=== PATIENT | female | born 1970 | race Caucasian/White ===

== ENCOUNTER 2018-12-30 07:23 | Inpatient (IN) | payer OTHER, MEDICAID ==
[~2018-12-30] VITALS: Ht 152.4 cm; Wt 70.3 kg
[2018-12-30] VITALS (19 sets, daily range): BP systolic 74–125; BP diastolic 40–81
--- NOTE | 2018-12-30 00:05 | NUR ---
VS STABLE AT THIS TIME. SBP AT 105. HR AT 63. PT CURRENTLY ON LEVOPHED AT 3MCG/MIN. RESPIRATIONS ARE EVEN AND UNLABORED. COLOSTOMY EMPTIED AT THIS TIME. PT TURNED AND REPOSITIONED. ORAL CARE PROVIDED TO PT. WILL CONTINUE TO MONITOR. Addendum: 12/31/18 at 0007 by Aimee Freeman RN WRONG DATE. ENTRY IS FOR 12/31/18
--- NOTE | 2018-12-30 07:25 | NUR ---
DR MARYLOU ALCARAZ AT BEDSIDE FOR PATIENT EVALUATION PATIENT PRESENTING WITH DYSPNEA WITH RESPIRATORY RATE LESS THAN 8 BPM AND POSSIBLE SEPSIS PATIENT ON ConvoreSCAPE R860 VENTILATOR AT THIS TIME SETTINGS: AC 12 VT 400 PEEP 5cmH2O FIO2 30% ED/MD AWARE OF SETTINGS
[2018-12-30] MEDS ORDERED: cefTRIAXone 1,000 MG in DEXT 5% MINI-BAG PLUS 50 ML IV ONE (07:30)
[2018-12-30] MEDS ORDERED: VANCOMYCIN 1,000 MG in DEXTROSE 5% 250 ML IV ONE (07:30)
--- NOTE | 2018-12-30 07:30 | NUR ---
Note undone in EDM - 12/30/18 at 0919 by [facility] [place]. PATIENT PRESENTS WITH ALOC. UNABLE TO FOLLOW COMMANDS. PERLL SLUGGISH 4 MM. MUSCLE CONTRACTURES NOTED TO BILATERAL UPPER AND LOWER EXTREMITIES. PT PLACED ON PILE HEADER. BS 109. PATIENT HAS TRACHE. NON LABORED BREATHING. CLEAR BILATERAL LUNGS UPON AUSCULTATION. PT HAS PEG TUBE AND COLOSTOMY. HOB UP. LOW BED POSITION, LOCKED. BED SIDE RAILS UP X 2. PT ER MD AWARE OF PT STATUS. WILL CONTINUE TO MONITOR.
--- NOTE | 2018-12-30 07:30 | NUR ---
OM[place] [facility] [place]IENT PRESENTS WITH ALOC. EMS HAD TO BAG PATIENT UPON ARRIVAL.UNABLE TO FOLLOW COMMANDS. PERLL SLUGGISH 4 MM. MUSCLE CONTRACTURES NOTED TO BILATERAL UPPER AND LOWER EXTREMITIES. PT PLACED ON CARPENTER AND JOINER. BS 109. PATIENT HAS TRACHE. PT PLACED ON VENTILATOR BY RT. CLEAR BILATERAL LUNGS UPON AUSCULTATION. PT HAS PEG TUBE AND COLOSTOMY. HOB UP. LOW BED POSITION, LOCKED. BED SIDE RAILS UP X 2. PT ER MD AWARE OF PT STATUS. WILL CONTINUE TO MONITOR.
--- NOTE | 2018-12-30 07:52 | NUR ---
[facility] LABORER TO ATTEMPT ABG AT A LATER TIME LAB AT [facility] FOLLOWED BY RADIOILOGY
[2018-12-30] MEDS ORDERED: LANS15EC28 GT (08:13)
[2018-12-30] MEDS ORDERED: GABA400C GT (08:13)
[2018-12-30] MEDS ORDERED: FENT100T TD (08:13)
[2018-12-30] MEDS ORDERED: KEP500L GT (08:13)
[2018-12-30] MEDS ORDERED: SERT25TA GT (08:13)
[2018-12-30] MEDS ORDERED: TRAM50TA1 GT (08:13)
[2018-12-30] MEDS ORDERED: TOPI50TA GT (08:13)
[2018-12-30] MEDS ORDERED: ACET-2619 GT (08:13)
[2018-12-30] MEDS ORDERED: ONDA4TAB GT (08:13)
[2018-12-30] MEDS ORDERED: HYDR1LIQ6 GT (08:13)
--- NOTE | 2018-12-30 08:15 | NUR ---
# 16 FR Chu catheter with 10 ml utilizing sterile technique. Immediate return of 20 ml YELLOW urine noted. Bedside drainage bag placed below level of bladder. Urine sample collected and sent to lab. Pt tolerated procedure WELL.
[2018-12-30] MEDS ORDERED: cefTRIAXone 1,000 MG VIAL ONE (08:17)
[2018-12-30] MEDS ORDERED: BEN50 GT (08:17)
[2018-12-30] MEDS ORDERED: ASCO500T45 GT (08:17)
[2018-12-30 08:19] LABS: HEMATOCRIT 38.3 % (36-48); HEMOGLOBIN 11.8 g/dL (12.0-16.0); MEAN CORPUSCULAR HEMOGLOBIN 26 pg (27-31); MEAN CORPUSCULAR HGB CONC 31 g/dL (33-37); MEAN CORPUSCULAR VOLUME 85.6 fL (80-94); PLATELET COUNT (AUTO) 364 K/uL (140-450); RED BLOOD CELL COUNT(AUTO) 4.47 MIL/uL (4.20-5.40); RED CELL DISTRIBUTION WIDTH 19.3 % (11.6-13.7)
[2018-12-30] MEDS ORDERED: SYN.075 GT (08:25)
[2018-12-30] MEDS ORDERED: MULT-1640 GT (08:25)
[2018-12-30] MEDS ORDERED: HYDR200T5 GT (08:25)
[2018-12-30] MEDS ORDERED: METO-485 GT (08:25)
[2018-12-30] MEDS ORDERED: BACL10TA4 GT (08:25)
[2018-12-30] MEDS ORDERED: LOV40I SUBQ (08:25)
[2018-12-30] MEDS ORDERED: LORA-476 GT (08:25)
[2018-12-30] MEDS ORDERED: ZINC220C12 GT (08:25)
--- NOTE | 2018-12-30 08:29 | NUR ---
BLOOD PRESSURE DECLINING; ED MD NOTIFIED. ORDERS RECIEVED.
[2018-12-30 08:30] LABS: PROTHROMBIN TIME 11.6 secs (10.8-13.4)
[2018-12-30 08:33] LABS: EOSINOPHILS % (MANUAL) 2 % (0-4); LYMPHOCYTES % (MANUAL) 5 % (20-46); MONOCYTES % (MANUAL) 3 % (5-12)
[2018-12-30] MEDS ORDERED: NACL 0.9% 1,000 ML IV ONE ×2 (08:35→20:10)
--- NOTE | 2018-12-30 08:58 | NUR ---
ABG DONE POSS MIXED SAMPLE AND REDRAW PATIENT HYPOTENSIVE 81/38
[2018-12-30] MEDS ORDERED: VANCOMYCIN 1,000 MG VIAL ONE (09:03)
[2018-12-30] MEDS ORDERED: NOREPINEPHRINE 4 MG in DEXTROSE 5% 250 ML IV ONE (09:10)
--- NOTE | 2018-12-30 09:10 | NUR ---
DR MARYLOU ALCARAZ ED/ REVIEWED ABG MIXED SAMPLE REPORT TRIAL MGR TO REDRAW AT A LATER TIME WITH INCREASED B/P
--- NOTE | 2018-12-30 09:15 | NUR ---
PT IS AT BEDSIDE. OPENS EYES AND MOUTHS WORDS. BLOOD PRESSURE IS STABILIZING. DR ALCARAZ AT BEDSIDE. WITHHELD LEVOPHED AT THIS TIME.
[2018-12-30 09:42] LABS: ALBUMIN 3.3 g/dL (3.4-5.0); ANION GAP 19.7 (8-16); CARBON DIOXIDE 23.7 mmol/L (21-32); CREATININE 1.1 mg/dL (0.6-1.3); TOTAL BILIRUBIN 0.6 mg/dL (0.0-1.0)
[2018-12-30 09:44] LABS: POTASSIUM 6.4 mmol/L (3.5-5.1)
[2018-12-30 09:53] LABS: APPEARANCE,URINE CLOUDY (CLEAR); BILIRUBIN,URINE NEGATIVE (NEGATIVE); BLOOD, URINE 1+ (NEGATIVE); COLOR,URINE YELLOW (YELLOW); LEUKOCYTE ESTERASE ,URINE NEGATIVE (NEGATIVE); NITRITE, URINE NEGATIVE (NEGATIVE); PH,URINE 5.5 (5.0-9.0); UGLUCOSE NEGATIVE (NEGATIVE)
[2018-12-30] MEDS ORDERED: INSULIN REGULAR, HUMAN 100 UNIT/ML VIAL IVP ONE (10:00)
[2018-12-30] MEDS ORDERED: SODIUM BICARBONATE 8.4% PFS 50 MEQ/50 ML SYR IVP ONE (10:00)
[2018-12-30] MEDS ORDERED: SODIUM POLYSTYRENE 15 GM/60 ML UDBTL PO ONE (10:00)
[2018-12-30] MEDS ORDERED: DEXTROSE 50% 50 ML SYR IVP ONE (10:00)
[2018-12-30 10:06] LABS: RBC,URINE >100 /HPF (0-5); WBC,URINE >25 (MANY) /HPF (0-5)
--- NOTE | 2018-12-30 10:08 | NUR ---
ED-10 PATIENT RESTING WELL WITHOUT PULMONARY DISTRESS NOTED GOOD CHEST RISE AIRWAY PATENT
--- NOTE | 2018-12-30 10:08 | NUR ---
RESTING COMFORATBLY NO SOB NOTED GOOD CHEST RISE
[2018-12-30] MEDS ORDERED: ONDANSETRON 4 MG/2 ML VIAL IM/IVP PRN (10:15)
[2018-12-30] MEDS ORDERED: DOCUSATE SODIUM 100 MG GELCAP PO PRN (10:15)
--- NOTE | 2018-12-30 10:58 | NUR ---
TRANSFERRED TO ICU-1 REMOVED FROM VENTILATOR PLACED ON SUPPLEMENTAL OXYGEN AT 15 LPM VIA E-TANK TO AMBU BAG/TRACHEOSTOMY TUBE BAG DEPRESSION EVERY 6-8 SECONDS SATURATION 98% TOLERATED TRANSFER WITHOUT INCIDENT
--- NOTE | 2018-12-30 11:00 | NUR ---
Patient will be admitted to care of Dr Vargas. Admited to ICU. Will go to room 1. Belongings list completed. Report to JAY Joaquin.
--- NOTE | 2018-12-30 11:05 | NUR ---
PLACED BACK ON A mechatronic system[employer] R860 VENTILATOR WITH SAME SETTINGS NOTED ON FLOW SHEET
--- NOTE | 2018-12-30 11:10 | NUR ---
PATIENT TRANSFERRED FROM ED. TRACH TO VENT. ALERT TO SELF. FOLLOWS COMMANDS. PATIENT IS CONTRACTED BLE. GROSS MOTOR MOVEMENTS NOTED BLE. PATIENT ABLE TO MOVE LLE AND BUE. G-TUBE IN PLACE. COLOSTOMY TO LUQ, MODERATE BROWN STOOL NOTED. WHITMORE CATH IN PLACE TO GRAVITY IN MODERATE AMOUNT, CLEAR/NANY IN COLOR. MULTIPLE WOUNDS NOTED, SEE WOUND ASSESSMENT. PATIENT'S DAUGHTER AJ MARSH, NOTIFIED OF TRANSFER AND PLAN OF CARE. PATIENT LINENS CHANGED. OFFLOADED PRESSURE AREAS, SKIN KEPT CLEAN AND DRY.
[2018-12-30 11:20] LABS: MAGNESIUM 2.4 mg/dL (1.8-2.4); PHOSPHORUS 7.6 mg/dL (2.5-4.9); THYROID STIMULATING HORMONE 4.57 uIU/mL (0.34-3.74)
[2018-12-30] MEDS ORDERED: DEXTROSE 50% 50 ML SYR IVP PRN (11:35)
[2018-12-30] MEDS ORDERED: DEXT 5% / NACL 0.45% 1,000 ML IV ONE (11:35)
[2018-12-30] MEDS ORDERED: CALCIUM ACETATE 667 MG TAB PO SCH (12:00)
[2018-12-30] MEDS ORDERED: LACTULOSE 20 GM/30 ML UDC GT SCH (12:00)
[2018-12-30] MEDS ORDERED: diphenhydrAMINE 12.5 MG/5 ML UDC GT SCH (12:00)
[2018-12-30] MEDS ORDERED: VANCOMYCIN PER PHARMACY MC PRN (12:15)
--- NOTE | 2018-12-30 12:28 | NUR ---
REVIEWED ABG SAMPLE REPORT WITH DR PATRICK GODDARD DRAWN IN ED-10 AT 09:04 MD STATES "I'M FINE WITH RESULTS ENTER INTO Connos[employer]er WITH NOTE STATING THAT SAMPLE IS A MIXED SAMPLE"
[2018-12-30] MEDS: ACETAMINOPHEN 650 MG/20.3 ML UDC PEG PRN (12:48)
--- NOTE | 2018-12-30 13:24 | NUR ---
NO EVIDENCE OF RESPIRATORY DISTRESS NOTED GOOD CHEST RISE AIRWAY PATENT
[2018-12-30] MEDS ORDERED: LIDOCAINE 1% 500 MG/50 ML VIAL INJ SCH (13:30)
--- NOTE | 2018-12-30 13:31 | NUR ---
PATIENT HAS BEEN SCREENED AND CATEGORIZED HIGH NUTRITION RISK. PATIENT WILL BE SEEN WITHIN 1-2 DAYS OF ADMISSION. 12/30/18-12/31/[address]
[2018-12-30] MEDS ORDERED: ONDANSETRON 4 MG/5 ML ORASYR GT PRN (13:35)
[2018-12-30] MEDS ORDERED: HYDROMORPHONE HCL 2 MG GT SCH (13:35)
[2018-12-30] MEDS ORDERED: ACETAMINOPHEN EXTRA STRENGTH 500 MG TAB GT PRN (13:35)
[2018-12-30] MEDS ORDERED: HYDROXYCHLOROQUINE 200 MG TAB GT SCH (13:35)
[2018-12-30] MEDS: LORazepam 2 MG/ML VIAL IM/IVP PRN (13:39)
[2018-12-30 13:46] LABS: ANION GAP 12.3 (8-16); CARBON DIOXIDE 31.8 mmol/L (21-32); CREATININE 0.9 mg/dL (0.6-1.3); POTASSIUM 4.1 mmol/L (3.5-5.1)
[2018-12-30] MEDS ORDERED: BACLOFEN 10 MG TAB GT SCH (13:46)
[2018-12-30] MEDS ORDERED: DOCUSATE 100 MG/10 ML UDC GT PRN (13:51)
[2018-12-30] MEDS ORDERED: ENOXAPARIN 40 MG/0.4 ML SYR SUBQ SCH (13:52)
--- NOTE | 2018-12-30 13:59 | NUR ---
CENTRAL LINE CONSENT OBTAINED FROM PATIENT AND PATIENT'S DAUGHTER. SPOKE WITH PATIENT'S REGARDING CURRENT PLAN OF CARE, IN AGREEMENT. LAB CRITICAL RESULT RECEIVED BLOOD GLUCOSE 48, RECHECKED AT BEDSIDE BS 108. DR. PINEDA NOTIFIED, NO CHANGE IN ORDERS.
[2018-12-30] MEDS ORDERED: LORazepam 2 MG/ML VIAL IM/IVP SCH (14:00)
[2018-12-30] MEDS ORDERED: HYDROmorphone 1 MG/ML AMP IVP SCH (14:00)
--- NOTE | 2018-12-30 14:30 | NUR ---
DR. PINEDA UNABLE TO OBTAIN CENTRAL LINE. ORDERS RECEIVED FOR PICC LINE. PICC NURSE NOTIFIED, AWAITING CALLBACK FOR PROCEDURE TIME.
[2018-12-30] MEDS: PIPER/TAZO 3.375GM/D5W PREMIX 50 ML IV SCH ×2 (15:13→20:54)
[2018-12-30] MEDS ORDERED: NACL 0.9% 500 ML IV SCH (15:35)
[2018-12-30] MEDS: LEVOTHYROXINE 0.1 MG TAB GT SCH (16:00)
[2018-12-30] MEDS: GABAPENTIN 100 MG CAP GT SCH (16:00)
[2018-12-30] MEDS: fentaNYL 0.1 MG/HR PATCH TD SCH (16:10)
[2018-12-30] MEDS: BACLOFEN 10 MG TAB GT SCH (16:12)
[2018-12-30] MEDS: BLOOD GLUCOSE MONITORING 1 DEV DEV FS SCH ×2 (16:30→20:54)
--- NOTE | 2018-12-30 16:39 | NUR ---
PATIENT HAVING ULTRASOUND AT BEDSIDE.
[2018-12-30] MEDS ORDERED: LORazepam 2 MG/ML VIAL IM/IVP PRN (18:30)
[2018-12-30] MEDS: METOCLOPRAMIDE 10 MG/10 ML SYRP UDC GT SCH (18:39)
[2018-12-30] MEDS: diphenhydrAMINE 12.5 MG/5 ML UDC GT SCH (18:39)
--- NOTE | 2018-12-30 19:02 | NUR ---
DR. MOSHER NOTIFIED OF PATIENT'S CONDITION. MADE AWARE OF PATIENT VENTURA IN 50S, ASYMPTOMATIC, NO NEW ORDERS. CONTINUE FENTANYL PATCH. PATIENT RESTING INTERMITTENTLY. NO ACUTE DISTRESS NOTED.
--- NOTE | 2018-12-30 19:14 | NUR ---
RCV'D PT ON MECHANICAL VENTILATION. PT IS TRACHED WITH SHILEY 6. TRACH IS IN PLACE AND SECURED. NO SOB OR DISTRESS NOTED. PT IS AWAKE AND RESPONDS TO QUESTION. MD MOSHER AT BEDSIDE. VENT IS CONNECTED TO RED OUTLET.ALARMS AUDIBLE. WILL CONTINUE TO MONITOR.
--- NOTE | 2018-12-30 19:19 | NUR ---
SBAR REPORT GIVEN TO JAY VALERO AT PT BEDSIDE. PATIENT RESTING IN BED. AWAKENS TO LIGHT STIMULI. NO ACUTE DISTRESS NOTED. OFFLOADED PRESSURE AREAS.
--- NOTE | 2018-12-30 19:30 | NUR ---
RECEIVED REPORT FROM MORNING RN FOR CONTINUITY OF CARE. BP MONITORED CLOSELY DUE TO GRADUALLY DECREASING. PT ABLE TO OPEN EYES AND MOUTH WORDS. ABLE TO MAKE SIMPLE NEEDS KNOWN. AFEBRILE. PT DENIES ANY PAIN OR DISCOMFORT AT THIS TIME. LUNG SOUNDS CLEAR. TRACH TO VENT WITH SETTINGS: AC12, FIO2 30%, TV 400, AND PEEP 5. NO SOB NOTED. S1+S2 HEARD. PULSE ARE PALPABLE IN ALL EXTREMITIES. SB ON MONITOR. ABDOMEN ROUND, SOFT AND NONDISTENDED. BS ACTIVE IN ALL QUADRANTS. GTUBE IN PLACE. NO RESIDUAL ASPIRATED. COLOSTOMY IN PLACE WITH LIQUID BROWN OUTPUT. WHITMORE CATHETER IN PLACE. DRAINING CLEAR AND YELLOW URINE. PT HAS PERIPHERAL IV ACCESS ON RIGHT HAND 22G. LINE WAS FLUSHED AND WAS PATENT, INTACT, AND ASYMPTOMATIC. PT SKIN IS WARM AND DRY TO TOUCH. PT HAS UNEVEN COLOR OF SKIN TONE ON HER FACE. MULTIPLE OPEN AREAS NOTED. WILL CONTINUE TO MONITOR PT.
--- NOTE | 2018-12-30 20:12 | NUR ---
CALLED DR. MOSHER TO NOTIFY HIM REGARDING PT'S BP AT THIS TIME. RECEIVED AN ORDER FOR IVF BOLUS. PT TO BE STARTED ON LEVOPHED DRIP POST IVF BOLUS. WILL EVALUATE THE NEED FOR THE DRIP AFTER.
--- NOTE | 2018-12-30 20:13 | NUR ---
CALLED BACK DR. MOSHER TO CLARIFY IVF BOLUS ORDER D/T PT'S BNP. PER DR. MOSHER PROCEED WITH THE BOLUS.
[2018-12-30] MEDS: TOPIRAMATE 25 MG TAB GT SCH (20:54)
[2018-12-30] MEDS: levETIRAcetam 100 MG/ML ORASYR GT SCH (20:54)
--- NOTE | 2018-12-30 20:57 | NUR ---
PT'S BP SLOWLY IMPROVING. NS BOLUS STILL INFUSING AT THIS TIME.
--- NOTE | 2018-12-30 21:20 | NUR ---
PICC LINE NURSE AT BEDSIDE. TIME OUT WAS DONE. PT STILL BRADYCARDIC. HYPOTENSION STILL NOTED. WILL CONTINUE TO MONITOR PT.
--- NOTE | 2018-12-30 21:43 | NUR ---
PICC LINE WAS INSERTED BY PICC LINE NURSE. CALLED DR. MOSHER FOR A CXR ORDER. CALLED RADIOLOGY TO NOTIFY THEM REGARDING THE ORDER.
[2018-12-30] MEDS: DEXT 5% /NACL 0.9% 1,000 ML IV SCH (22:00)
--- NOTE | 2018-12-30 22:16 | NUR ---
CALLED PT'S , ASHLEY, TO NOTIFY HIM THAT PICC LINE WAS SUCCESSFULLY INSERTED AND THE PT TOLERATED WELL. UPDATED HIM REGARDING THE PT'S CONDITION. ASHLEY WAS WANTING TO KNOW IF THE PT IS GOING TO BE OKAY. INFORMED HIM THAT THIS TOPIC IS BETTER FOR HIM TO DISCUSS WITH THE PHYSICIAN IN THE MORNING. PER ASHLEY, HE WILL COME IN TO SEE PT TOMORROW.
[2018-12-30] MEDS ORDERED: NOREPINEPHRINE 4 MG/4 ML VIAL IV ONE (22:29)
[2018-12-30] MEDS: NOREPINEPHRINE 4 MG in DEXTROSE 5% 250 ML IV PRN (22:40)
--- NOTE | 2018-12-30 22:45 | NUR ---
VENT CHECK. PT IS AWAKE AND QUITE. PT JUST GOT PICC LINE INSERTED. NO SOB OR DISTRESS NOTED. WILL CONTINUE TO MONITOR.
--- NOTE | 2018-12-30 23:30 | NUR ---
CALLED DR. MOSHER FOR ANOTHER CHEST X-RAY ORDER. PER PICC LINE NURSE THE LINE HAS TO BE REPOSITIONED. X-RAY TECH IN THE UNIT AND NOTIFIED REGARDING THE NEW ORDER. Addendum: 12/31/18 at 0004 by Aimee Freeman RN WRONG TIME. THIS WAS DONE 7
[2018-12-31] VITALS (97 sets, daily range): BP systolic 84–121; BP diastolic 45–77
--- NOTE | 2018-12-31 00:05 | NUR ---
VS STABLE AT THIS TIME. SBP AT 105. HR AT 63. PT CURRENTLY ON LEVOPHED AT 3MCG/MIN. RESPIRATIONS ARE EVEN AND UNLABORED. COLOSTOMY EMPTIED AT THIS TIME. PT TURNED AND REPOSITIONED. ORAL CARE PROVIDED TO PT. WILL CONTINUE TO MONITOR.
[2018-12-31] MEDS: DEXT 5% /NACL 0.9% 1,000 ML IV SCH (00:15)
[2018-12-31] MEDS: diphenhydrAMINE 12.5 MG/5 ML UDC GT SCH ×5 (00:17→23:02)
[2018-12-31] MEDS: METOCLOPRAMIDE 10 MG/10 ML SYRP UDC GT SCH ×5 (00:18→23:02)
--- NOTE | 2018-12-31 02:25 | NUR ---
UNABLE TO COLLECT SPUTUM.PT IS DRY. CLEAR BREATH SOUNDS.
--- NOTE | 2018-12-31 03:12 | NUR ---
PM CARE PROVIDED TO PT. DRESSINGS WERE CHANGED AND WOUNDS WERE MEASURED. WHITMORE CATHETER CARE PROVIDED. HOB AT 30 DEGREES. BED AT LOW POSITION. WILL CONTINUE TO MONITOR PT AT THIS TIME.
--- NOTE | 2018-12-31 05:00 | NUR ---
NO CHANGE IN PT'S CONDITION AT THIS TIME. VS REMAINS STABLE. SR ON MONITOR. PT STILL ON LEVOPHED AT 5MCG/MIN. PICC LINE DRESSING IS CLEAN, DRY AND INTACT. ALL SAFETY PRECAUTIONS REMAINS IN PLACE. WILL CONTINUE TO MONITOR PT.
[2018-12-31] MEDS: PIPER/TAZO 3.375GM/D5W PREMIX 50 ML IV SCH ×3 (05:34→20:38)
[2018-12-31] MEDS: levETIRAcetam 100 MG/ML ORASYR GT SCH ×3 (05:35→20:38)
[2018-12-31] MEDS: BLOOD GLUCOSE MONITORING 1 DEV DEV FS SCH ×4 (06:32→20:45)
[2018-12-31] MEDS: INSULIN LISPRO SLIDING SCALE 100 UNITS/ML VIAL SUBQ PRN ×2 (06:33→12:16)
--- NOTE | 2018-12-31 06:54 | NUR ---
DR. PINEDA AT BEDSIDE AT THIS TIME. UPDATED HIM REGARDING PT'S CONDITION. WILL FOLLOW-UP WITH ANY NEW ORDERS.
--- NOTE | 2018-12-31 07:15 | NUR ---
RECIVED PT ON VENT WITH SETTINGS CHARTED BREATH SOUNDS PRESENT BILAT CLEAR SXN P WITH MIN AMT OFF WHITE SECS ANBU BAG BEDSIDE VENT PLUGGED INTO RED OUTLET WILL CONTINUE TO MONITOR PT ON VENT
[2018-12-31 07:18] LABS: CHOL/HDL RATIO 1.7 (1-4.5); MAGNESIUM 2.1 mg/dL (1.8-2.4); PHOSPHORUS 3.4 mg/dL (2.5-4.9)
[2018-12-31 07:22] LABS: BASOPHILS % (AUTO) 0.5 % (0.0-2.0); EOSINOPHILS # (AUTO) 0.6 K/uL (0-0.4); EOSINOPHILS % (AUTO) 8.8 % (0.0-4.0); HEMATOCRIT 33.7 % (36-48); HEMOGLOBIN 10.4 g/dL (12.0-16.0); LYMPHOCYTES # (AUTO) 0.4 K/uL (2.5-16.5); LYMPHOCYTES % (AUTO) 5.2 % (20.5-51.1); MEAN CORPUSCULAR HEMOGLOBIN 26 pg (27-31); MEAN CORPUSCULAR HGB CONC 31 g/dL (33-37); MEAN CORPUSCULAR VOLUME 85.8 fL (80-94); MONOCYTES # (AUTO) 0.5 K/uL (0.8-1.0); MONOCYTES % (AUTO) 6.6 % (1.7-9.3); NEUTROPHILS # (AUTO) 5.7 K/uL (1.8-7.7); NEUTROPHILS % (AUTO) 78.9 % (42.2-75.2); PLATELET COUNT (AUTO) 262 K/uL (140-450); RED BLOOD CELL COUNT(AUTO) 3.92 MIL/uL (4.20-5.40); RED CELL DISTRIBUTION WIDTH 19.9 % (11.6-13.7); WHITE BLOOD COUNT (AUTO) 7.2 K/uL (4.8-10.8)
--- NOTE | 2018-12-31 07:30 | NUR ---
RECEIVED BEDSIDE REPORT FROM CORPORATE ACCOUNTANT RN. PT IS ASLEEP, OPENS EYES TO LIGHT TOUCH. PT IS AFEBRILE. FLACC 0. NORMAL SINUS RHYTHM ON MONITOR. S1 +S2 HEARD. PT IS TRACH TO VENT W/ SETTINGS: AC 12, FIO2 30%, VT 500, PEEP 5. BILATERAL LUNGS WHEEZING. BREATHING EVEN, UNLABORED. PICC LINE TO RIGHT UPPER ARM PATENT, INTACT AND ASYMPTOMATIC. PT RECEIVING IVF D5NS AT 120 ML/HR AND LEVOPHED DRIP AT 5 MCG/MIN. PERIPHERAL IV G22 TO RIGHT HAND INTACT, PATENT, SALINE LOCKED. G-TUBE IN PLACE. ABDOMEN SOFT, ROUND, NONTENDER W/ ACTIVE BOWEL SOUNDS. COLOSTOMY BAG IN PLACE W/ BROWN LIQUID STOOL. WHITMORE CATH IN PLACE DRAINING DARK YELLOW URINE TO GRAVITY. SKIN IS DRY AND WARM TO TOUCH. MULTIPLE SKIN TEARS TO CHEST NOTED. DRESSINGS TO SACRAL AND LEFT BUTTOCK CLEAN, DRY,INTACT. HOB 30 DEGREES, BED IN LOWEST POSITION AND CALL LIGHT WITHIN REACH. WILL CONTINUE TO MONITOR.
[2018-12-31 07:31] LABS: ANION GAP 11.2 (8-16); CREATININE 0.6 mg/dL (0.6-1.3); POTASSIUM 3.2 mmol/L (3.5-5.1)
[2018-12-31 07:40] LABS: THYROID STIMULATING HORMONE 3.11 uIU/mL (0.34-3.74)
[2018-12-31 07:45] LABS: ALBUMIN 2.5 g/dL (3.4-5.0); BILIRUBIN,DIRECT 0.3 mg/dL (0.0-0.3); TOTAL BILIRUBIN 0.6 mg/dL (0.0-1.0)
--- NOTE | 2018-12-31 08:10 | NUR ---
PT SEEN BY DR. WEINER AND RESIDENT GROUP. DR. PINEDA AWARE OF LOW POTASSIUM LEVEL OF 3.2 AND LOW URINE OUTPUT. WILL FOLLOW UP ON ORDERS.
[2018-12-31] MEDS: VANCOMYCIN 1GM/DEXT 5% PREMIX 200 ML IV SCH (08:26)
[2018-12-31] MEDS: BACLOFEN 10 MG TAB GT SCH ×3 (08:27→17:29)
[2018-12-31] MEDS: SERTRALINE 50 MG TAB GT SCH (08:27)
[2018-12-31] MEDS: GABAPENTIN 100 MG CAP GT SCH ×3 (08:27→17:29)
[2018-12-31] MEDS: ZINC SULF 220 MG CAP GT SCH (08:27)
[2018-12-31] MEDS: ASCORBIC ACID 500 MG TAB GT SCH (08:28)
[2018-12-31] MEDS: TOPIRAMATE 25 MG TAB GT SCH ×2 (08:28→20:39)
[2018-12-31] MEDS: ENOXAPARIN 40 MG/0.4 ML SYR SUBQ SCH (08:29)
[2018-12-31] MEDS: LEVOTHYROXINE 0.1 MG TAB GT SCH (08:50)
[2018-12-31] MEDS ORDERED: THERAHONEY GEL 42.5 GM TP SCH (09:00)
--- NOTE | 2018-12-31 09:02 | NUR ---
MEDICATIONS ADMINISTERED ORDERED. PT TOLERATED WELL.
--- NOTE | 2018-12-31 09:15 | NUR ---
VENT CHECK COMPLETED, PT ASLEEP AT THIS TIME NOT IN ANY DISTRESS. VENT ALARMS REMAIN ON AND FUNCTIONING. WILL CONTINUE TO MONITOR.
[2018-12-31] MEDS ORDERED: POTASSIUM CHLORIDE 20% 40 MEQ/15 ML UDC GT SCH (09:30)
[2018-12-31] MEDS: NACL 0.45% 1,000 ML IV SCH ×2 (09:40→21:40)
--- NOTE | 2018-12-31 11:00 | NUR ---
EKG DONE AT BEDSIDE. FLOOR FRAMER S/SX OF DISTRESS NOTED AT THIS TIME. VSS.
--- NOTE | 2018-12-31 12:05 | NUR ---
PT SUCTIONED OBTAINED SMALL AMOUNT OF THICK SECRETIONS, AIRWAY IS PATENT AND TRACH IS SECURE. PT NOT IN ANY DISTRESS AT THIS TIME. WILL CONTINUE TO MONITOR.
[2018-12-31] MEDS: MORPHINE SULFATE 2 MG/ML SYR IVP PRN (12:25)
[2018-12-31] MEDS: NOREPINEPHRINE 4 MG in DEXTROSE 5% 250 ML IV PRN (12:42)
[2018-12-31] MEDS: LORazepam 2 MG/ML VIAL IM/IVP PRN (12:50)
[2018-12-31] MEDS ORDERED: PROBIOTIC SCREEN 1 EA MISC MC PRN (13:35)
--- NOTE | 2018-12-31 14:14 | NUR ---
12/31/18 RD INITIAL ASSESSMENT COMPLETED PLEASE REFER TO NUTRITION ASSESSMENT UNDER CARE ACTIVITY FOR ESTIMATED NUTRITIONAL NEEDS. 1. RECOMMEND GLUCERNA 1.2 AT 50 ML/HR -THIS WILL PROVIDE A VOLUME OF 1200 ML, 1440 KCAL, 72 GM OF PROTEIN. IT MEETS 100% OF PATIENT�S ENERGY NEEDS AND 99% OF PROTEIN NEEDS. 2. RECOMMEND FWF [address] TO FOLLOW-UP 2-3 DAYS, HIGH RISK [address] MANUEL AY[address] RD
--- NOTE | 2018-12-31 14:15 | NUR ---
TUBE FEEDING STARTED ORDERED. WILL CONTINUE TO MONITOR.
--- NOTE | 2018-12-31 15:45 | NUR ---
PT ASLEEP AT THIS TIME NOT IN ANY DISTRESS. WILL CONTINUE TO MONITOR.
--- NOTE | 2018-12-31 16:05 | NUR ---
VAP ORAL CARE GIVEN. REPOSITIONED FOR COMFORT AND OFF LOAD PRESSURE AREAS. TOLERATED WELL.
--- NOTE | 2018-12-31 16:22 | NUR ---
Manager Agricultural Note: Alberto AlfredoMiladis from [facility] , patient is on a 7 day bed hold and is one of their alf patients. She stated patient does not have an existing Advance Directives for health care and her daughter Shannen Faith is her health care decision maker. Addendum: 12/31/18 at 1624 by Sravani WILD Please disregard above note
--- NOTE | 2018-12-31 16:25 | NUR ---
Component Prep Operator Note: Alberto Redding from 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 She stated patient does not have an existing Advance Directives for health care and her Acosta Mccray is her health care decision maker.
--- NOTE | 2018-12-31 16:30 | NUR ---
WOUND CARE EVALUATION NOTES: REASON FOR EVALUATION: MULTIPLE PRESSURE INJURIES SKIN ASSESSMENT DONE ON THIS 48 Y[place]O FEM[place] [facility] [facility], WITH INITIAL DIAGNOSIS OF AMS. PAST MEDICAL HISTORY INCLUDE TRACH TO VENT,LUPUS,MUSCULAR DYSTROPHY,DERMATOMYOSITIS, DM, CHF, GT, LEFT COLOSTOMY, AND MULTIPLE PRESSURE INJURIES. ALL ABOVE INFORMATION WAS OBTAINED FROM THE ADMISSION H&P. SKIN WARM TO TOUCH, TOENAILS ARE SHORT AND THICKENED, R/L UPPER EXTREMITIES SHOULDERS AND ELBOWS STIFFNESS BLE NO HAIR GROWTH, BILATERAL PEDAL PULSES PRESENT AND NORMAL FEET ARE COLD TO TOUCH. INCONTINENT OF BLADDER. INCONTINENT OF BM X1 DURING SKIN ASSESSMENT. NEEDS MAX ASSISTANCE IN TURNING. PLAN OF CARE AND PRESSURE PREVENTIVE MEASURES DISCUSSED WITH PRIMARY RN. INTEGUMENTARY: -TRACH SITE SAMIR-STOMA SKIN DRY INTACT -MID ABD, GT SITE SAMIR-STOMA SKIN DRY INTACT. -LLQ ABD COLOSTOMY SAMIR-STOMA SKIN DRY INTACT, FUNCTIONING. -SACRALCOCCYX PRESSURE INJURY STAGE 4, 3X6.5X0.3 CM , WOUND BED IS CLEAN ,RED IN COLOR, 100% GRANULATING TISSUE, NO ODOR AFTER CLEANING, SMALL AMOUNT SEROSANGUINEOUS DRAINAGE, MILD ODOR. SAMIR WOUND SKIN INTACT WITH RE-EPITHELIUM TISSUE. -LEFT HIP PRESSURE INJURY STAGE 4, 3X2X0.2 CM WITH UNDERMINING AROUND THE CLOCK WITH DEEPEST TO 7 O�CLOCK 0.5 CM, WOUND BED IS CLEAN, PINK IN COLOR, 90% GRANULATING TISSUE, 10 % SCATTERED YELLOW SLOUGH, NO ODOR AFTER CLEANING, SMALL AMOUNT SEROSANGUINEOUS DRAINAGE, SAMIR WOUND SKIN INTACT WITH PERIWOUND SKIN PALE PINK IN COLOR. WOUND EDGE IS WELL DEFINED. -HEALED SCAR TO RIGHT THIGH -RIGHT / LEFT HEEL BLANCHABLE REDNESS RECOMMENDATIONS: -APPLY HYDRAGUARD TO BILATERAL CHEST, UPPER ARMS AND LOWER EXTREMITIES BID AND LEAVE IT OPEN TO AIR -CLEANSE LEFT HIP (TROCHANTER) AND SACRACOCCYX PRESSURE INJURIES WITH NS. PAT DRY, APPLY THERAHONEY GEL AND ADAPTIC DRESSING TO WOUND BED, APPLY Z-GUARD TO SACRALCOCCYX SAMIR WOUND SKIN, COVER WITH DRY DRESSING QD AND PRN IF SOILING. -TURN AND REPOSITION PATIENT Q 2H OFFLOAD LEFT AND RIGHT HIPS -ASSESS AND MONITOR SKIN CONDITION DURING POSITION CHANGE, PLEASE PAY ATTENTION TO HIPS, SACRALCOCCYX, FEET AND HEELS -OFFLOAD BILATERAL HEELS BY PLACING PILLOWS UNDER CALVES AT ALL TIMES, UNLESS OTHERWISE CONTRAINDICATED -PRESSURE REDISTRIBUTION SURFACE THERAPY -KEEP SKIN CLEAN AND DRY AT ALL TIMES. MOISTURE CONTROL WITH CONDOM CATH AND /OR RECTAL BAG WHEN APPROPRIATE RECOMMENDATIONS DISCUSSED WITH PRIMARY RN WILL FOLLOW UP PATIENT Q7-10 DAYS AND PRN. PLEASE CONTACT WOUND CARE NURSE FOR ANY QUESTIONS AND CHANGES IN SKIN CONDITION.
--- NOTE | 2018-12-31 17:21 | NUR ---
PT REMAINS ON DOCUMENTED VENT SETTINGS. PT IS ASLEEP AT THIS TIME NOT IN ANY DISTRESS. VENT ALARMS REMAIN ON AND FUNCTIONING. TRACH REMAINS SECURE WITH A PATENT AIRWAY.
--- NOTE | 2018-12-31 17:46 | NUR ---
PT IS ASLEEP AT THIS TIME. MEDICATIONS ADMINISTERED ORDERED. VITAL SIGNS STABLE. NO S/SX OF DISTRESS NOTED AT THIS TIME.
--- NOTE | 2018-12-31 18:15 | NUR ---
DR. MOSHRE IN TO SEE AND EXAMINE PT. UPDATES GIVEN ON PT'S CONDITION. WILL FOLLOW UP ON ORDERS.
--- NOTE | 2018-12-31 19:13 | NUR ---
RECEIVED REPORT FROM AM SHIFT. PT AFEBRILE. OPENS EYES SPONTANEOUSLY. ABLE TO MAKE NEEDS KNOWN. LUNG SOUNDS CLEAR BILAT. TRACH TO VENT. FIO2 30 VT 400 RATE 12 PEEP 5. SINUS RHYTHM WITH BBB NOTED. NO EDEMA NOTED. GT TO LUQ. 5 ML RESIDUAL NOTED. ON GLUCERNA 1.2 30ML WITH 150ML Q 6H. COLOSTOMY BAD NOTED. F/C IN IN PLACE. URINE CLEAR YELLOW. NO FOUL ODOR PRESENT. IV SITE RIGHT HAND 22G. DRESSING INTACT. IV SITE PATENT. RIGHT UPPER ARM PICC NOTED. DRESSING INTACT. ON LEVOPHED DRIP 5MCG AT THIS TIME. MULTIPLE SCRATCHES NOTED TO BODY. SACRAL COCCYX WOUND NOTED. DRESSING INTACT. BED IN LOWEST POSITION. SIDE RAILS UP X4. HOB 30. NO SIGNS OF ACUTE DISTRESS AT THIS TIME. WILL CONTINUE TO MONITOR.
--- NOTE | 2018-12-31 19:23 | NUR ---
REPORT GIVEN TO REHABILITATION PHYSICIAN RN FOR CONTINUITY OF CARE. PT IS IN STABLE CONDITION.
--- NOTE | 2018-12-31 19:29 | NUR ---
LAB HEMATOLOGY REPORTED GRAM POSITIVE COCCI IN CLUSTERS. DR. MOSHER MADE AWARE.
--- NOTE | 2018-12-31 20:09 | NUR ---
RECEIVED ON A LoopbackSCAPE R860 VENTILATOR PLUGGED INTO RED OUTLET TOLERATING WELL WITHOUT INCIDENT TO A SHILEY #6 DCT AIRWAY SECURED WITH A TAWANDA TRACH TIE CUFF PRESSURED CHECK NOTED AMBU BAG AT HOB LOC QUIET BREATH SOUNDS CLEAR LEFT SIDE RUL RML RALES RLL GOOD CHEST RISE EQUAL BILATERAL DEEP TRACHEAL SUCTION FOR LARGE THIN YELLOW SECRETIONS SPUTUM CULTURE SPECIMEN OBTAINED AIRWAY PATENT
--- NOTE | 2018-12-31 20:37 | NUR ---
VAP ORAL CARE PROVIDED AT THIS TIME. PT TOLERATED WELL. WILL CONTINUE TO MONITOR.
--- NOTE | 2018-12-31 21:59 | NUR ---
DR. GODWIN AT BEDSIDE AT THIS TIME. UPDATED ON PTS CURRENT CONDITION. WILL CONTINUE TO FOLLOW UP ANY ADDITIONAL ORDERS.
--- NOTE | 2018-12-31 21:59 | NUR ---
RESTING COMFORTABLY NO EVIDENCE OF PULMONARY DISTRESS NOTED GOOD CHEST RISE
--- NOTE | 2018-12-31 22:15 | NUR ---
PT REPOSITIONED AT THIS TIME. NO SIGNS OF ACUTE DISTRESS AT THIS TIME
--- NOTE | 2018-12-31 23:22 | NUR ---
NO SOB NOTED GOOD CHEST RISE AND AERATION THROUGHOUT BILATERAL LUNG DAVID AIRWAY PATENT
[2019-01-01] VITALS (61 sets, daily range): BP systolic 85–137; BP diastolic 50–82
--- NOTE | 2019-01-01 | NUR ---
NO SIGNS OF ACUTE DISTRESS AT THIS TIME. AFEBRILE.
[2019-01-01] MEDS: HYDRAGUARD CREAM TP SCH ×2 (01:13→12:21)
--- NOTE | 2019-01-01 01:41 | NUR ---
NO APPARENT DISTRESS NOTED AT THIS TIME GOOD CHEST RISE
--- NOTE | 2019-01-01 03:33 | NUR ---
RESTING WELL NO APPARENT DISTRESS NOTED GOOD CHEST RISE AIRWAY PATENT
--- NOTE | 2019-01-01 04:32 | NUR ---
AM CARE PROVIDED AT THIS TIME. ORAL CARE DONE AT THIS TIME. PT TURNED AND REPOSITIONED. WOUND CARE PROVIDED.
--- NOTE | 2019-01-01 05:13 | NUR ---
LAB AT BEDSIDE AT THIS TIME FOR AM BLOOD DRAWS. WITHDREW BLOOD VIA PICC LINE. NO SIGNS OF ACUTE DISTRESS AT THIS TIME.
[2019-01-01] MEDS ORDERED: ALBUTEROL SULFATE/IPRATROPIU 3 ML SOL IH PRN (05:15)
--- NOTE | 2019-01-01 05:23 | NUR ---
GOOD CHEST RISE DEEP TRACHEAL SUCTION FOR MODERATE THIN YELLOW SECRETIONS AIRWAY PATENT
[2019-01-01] MEDS: PIPER/TAZO 3.375GM/D5W PREMIX 50 ML IV SCH ×3 (05:31→20:13)
[2019-01-01] MEDS: diphenhydrAMINE 12.5 MG/5 ML UDC GT SCH ×4 (05:32→23:46)
[2019-01-01] MEDS: METOCLOPRAMIDE 10 MG/10 ML SYRP UDC GT SCH ×4 (05:32→23:46)
[2019-01-01] MEDS: levETIRAcetam 100 MG/ML ORASYR GT SCH ×3 (05:32→20:13)
[2019-01-01] MEDS: LORazepam 2 MG/ML VIAL IM/IVP PRN (06:30)
--- NOTE | 2019-01-01 06:30 | NUR ---
RECEIVED PT ON CARESCAPE ON DOCUMENTED SETTINGS, ALARMS ARE ON AND AUDIBLE, PTS TRACH CHAPARRITA DCT SIZE 6 IS SECURE PT IN HF QUIET NO SOB NOTED, HHN GVIEN I\L WITH 3 MG DUONEB BMV HOB, VENT PLUGGED INTO RED OUTLET I\L SX FOR SMALL YELLOW SECRETIONS
[2019-01-01] MEDS: ALBUTEROL SULFATE/IPRATROPIU 3 ML SOL IH SCH ×3 (06:32→18:39)
--- NOTE | 2019-01-01 06:33 | NUR ---
RT AT BEDSIDE AT THIS TIME
--- NOTE | 2019-01-01 06:34 | NUR ---
PT GIVEN ATIVAN AT THIS TIME FOR ANXIETY
[2019-01-01 07:04] LABS: BASOPHILS % (AUTO) 0.3 % (0.0-2.0); EOSINOPHILS # (AUTO) 0.6 K/uL (0-0.4); EOSINOPHILS % (AUTO) 7.9 % (0.0-4.0); HEMATOCRIT 33.4 % (36-48); HEMOGLOBIN 10.5 g/dL (12.0-16.0); LYMPHOCYTES # (AUTO) 0.6 K/uL (2.5-16.5); LYMPHOCYTES % (AUTO) 7.5 % (20.5-51.1); MEAN CORPUSCULAR HEMOGLOBIN 27 pg (27-31); MEAN CORPUSCULAR HGB CONC 31 g/dL (33-37); MEAN CORPUSCULAR VOLUME 85.2 fL (80-94); MONOCYTES # (AUTO) 0.5 K/uL (0.8-1.0); MONOCYTES % (AUTO) 6.9 % (1.7-9.3); NEUTROPHILS % (AUTO) 77.4 % (42.2-75.2); PLATELET COUNT (AUTO) 244 K/uL (140-450); RED BLOOD CELL COUNT(AUTO) 3.92 MIL/uL (4.20-5.40); RED CELL DISTRIBUTION WIDTH 19.5 % (11.6-13.7); WHITE BLOOD COUNT (AUTO) 7.8 K/uL (4.8-10.8)
--- NOTE | 2019-01-01 07:05 | NUR ---
RECEIVED BEDSIDE REPORT FROM SENIOR SOFTWARE TEST ENGINEER RN, DAVID, FOR CONTINUITY OF CARE. PATIENT OPENS EYES SPONTANEOUSLY, ABLE TO MAKE NEEDS KNOWN. PATIENT SKIN IS WARM AND DRY, AFEBRILE, HAS PERIPHERAL IV SITE TO R. HAND AND PICC LINE TO R. UPPER ARM, ASYMPTOMATIC AND PATENT. PATIENT SKIN IS NOT INTACT, SHE HAS PRESSURE INJURY TO SACROCOCCYX AND LEFT BUTTOCKS, DRESSING CLEAN AND DRY. PATIENT IS TRACH TO VENT, SETTINGS ARE AC 12, FIO2 30, TV 400, PEEP 5. BREATHING EVEN AND UNLABORED. SR W/BBB ON MONITOR, DENIES PAIN. PATIENT HAS GTUBE IN PLACE TO UPPER LEFT QUAD WITH GLUCERNA FEEDING RUNNING AT 30ML/HR. PATIENT HAS COLOSTOMY BAG IN PLACE TO LOWER LEFT QUAD, OUTPUT OF 75MLS. WHITMORE CATHETER IN PLACE TO CLEAR YELLOW URINE. HOB IS 30 DEGREES, SAFETY PRECAUTIONS AND ALARMS ASSESSED AND ENFORCED. NO SIGNS OF DISTRESS AT THIS TIME. WILL CONTINUE TO MONITOR.
--- NOTE | 2019-01-01 07:15 | NUR ---
ENDORSED CARE TO INCOMING SHIFT FOR CONTINUITY OF CARE
[2019-01-01 07:23] LABS: ANION GAP 13.7 (8-16); CARBON DIOXIDE 24.9 mmol/L (21-32); CREATININE 0.5 mg/dL (0.6-1.3); MAGNESIUM 1.8 mg/dL (1.8-2.4); PHOSPHORUS 2.8 mg/dL (2.5-4.9); POTASSIUM 3.6 mmol/L (3.5-5.1)
[2019-01-01 07:27] LABS: ALBUMIN 2.4 g/dL (3.4-5.0); BILIRUBIN,DIRECT 0.2 mg/dL (0.0-0.3); TOTAL BILIRUBIN 0.5 mg/dL (0.0-1.0)
[2019-01-01] MEDS: BLOOD GLUCOSE MONITORING 1 DEV DEV FS SCH ×4 (07:43→20:11)
[2019-01-01] MEDS: ZINC SULF 220 MG CAP GT SCH (08:13)
[2019-01-01] MEDS: BACLOFEN 10 MG TAB GT SCH ×3 (08:13→17:33)
[2019-01-01] MEDS: SERTRALINE 50 MG TAB GT SCH (08:13)
[2019-01-01] MEDS: LEVOTHYROXINE 0.1 MG TAB GT SCH (08:13)
[2019-01-01] MEDS: TOPIRAMATE 25 MG TAB GT SCH ×2 (08:14→20:13)
[2019-01-01] MEDS: ASCORBIC ACID 500 MG TAB GT SCH (08:14)
[2019-01-01] MEDS: GABAPENTIN 100 MG CAP GT SCH ×3 (08:14→17:33)
[2019-01-01] MEDS: ENOXAPARIN 40 MG/0.4 ML SYR SUBQ SCH (08:15)
--- NOTE | 2019-01-01 08:16 | NUR ---
PATIENT TURNED AND REPOSITIONED, TOLERATED WELL. ORAL CARE PROVIDED, NO SIGNS OF DISTRESS AT THIS TIME, WILL CONTINUE TO MONITOR
--- NOTE | 2019-01-01 09:08 | NUR ---
DR. EDGE IN TO SEE AND EXAMINE PATIENT, UPDATED ON PATIENT'S CONDITION. WILL FOLLOW UP ON ANY ORDERS.
[2019-01-01] MEDS: traMADol 50 MG TAB GT PRN (09:11)
--- NOTE | 2019-01-01 09:11 | NUR ---
PATIENT IS COMPLAINING OF DISCOMFORT, ADMINISTERED TRAMDOL PRN, TOLERATED WELL. WILL CONTINUE TO MONITOR
--- NOTE | 2019-01-01 09:16 | NUR ---
LEVOPHED IS OFF AT THIS TIME, PATIENT'S IS 99/57. WILL CONTINUE TO MONITOR
[2019-01-01] MEDS: VANCOMYCIN 1GM/DEXT 5% PREMIX 200 ML IV SCH (09:54)
[2019-01-01] MEDS: NACL 0.45% 1,000 ML IV SCH (10:10)
--- NOTE | 2019-01-01 10:10 | NUR ---
[facility] AT BEDSIDE TO ROUND ON PATIENT, UPDATED ON PATIENT'S CONDITION. WILL FOLLOW UP ON ANY ORDERS
[2019-01-01] MEDS ORDERED: PANTOPRAZOLE 40 MG INJ VIAL IVP SCH (11:07)
--- NOTE | 2019-01-01 12:18 | NUR ---
PATIENT CLEANED AND REPOSITIONED, ORAL CARE PROVIDED, PATIENT TOLERATING WELL. NO SIGNS OF DISTRESS AT THIS TIME. WILL CONTINUE TO MONITOR
[2019-01-01] MEDS: Z-GUARD PASTE TP SCH (12:20)
[2019-01-01] MEDS: THERAHONEY GEL 42.5 GM TP SCH (12:21)
--- NOTE | 2019-01-01 13:11 | NUR ---
PATIENT'S FRIEND AT BEDSIDE, UPDATED ON PATIENT'S CONDITION. NO SIGNS OF DISTRESS AT THIS TIME
--- NOTE | 2019-01-01 13:26 | NUR ---
PATIENT'S MOTHER IS HERE TO SEE PATIENT, UPDATED ON PATIENT'S CONDITION.
--- NOTE | 2019-01-01 17:11 | NUR ---
PATIENT'S MOTHER AT BEDSIDE, DR. PINEDA IN TO SPEAK WITH PATIENT'S MOTHER.
--- NOTE | 2019-01-01 18:21 | NUR ---
DR. DOTY IN TO SEE AND EXAMINE PATIENT, UPDATED ON PATIENT'S CONDITION
--- NOTE | 2019-01-01 18:45 | NUR ---
Received pt stable on vent support at documented settings, suctioned small amounts of thick yellow secretions, hhn tx given, tolerated well, no resp distress or SOB noted at this time, Shiley 6 trach secured/patent/midline, alarms set and audible, ambu bag at bedside, vent plugged into red outlet, cont pulse ox on, will cont to monitor.
--- NOTE | 2019-01-01 19:08 | NUR ---
ENDORSED CONTINUITY OF CARE TO BUILDING PERFORMANCE CONSULTANT RNHARRIET. NO SIGNS OF DISTRESS NOTED.
--- NOTE | 2019-01-01 19:10 | NUR ---
RECEIVED BEDSIDE REPORT FROM MORNING SHIFT RNCLAUDETTE. PT OPENS EYES SPONTANEOUSLY, PEERL, AFEBRIL TEMP 97.4, BP 101/56, HR=76, RR=14. SR W/BBB ON DISTRICT PLANT SUPERINTENDENT.SATING 100%, ON TRACH TO VENT, LUNG SOUND CLEAR ON UPPER/LOWER BILATERAL LOBES. FI02=30%, GX=325, RR=12, FLOW=35L/MIN. BOWEL SOUND ACTIVE X4, COLOSTOMY BAG IN PLACE, BROWN MUSHY STOOL NOTED. GLUCERNA 1.2 GEENA TO GTUBE AT 50CC/HR. RESIDUAL 50CC. RIGHT HAND PIV INTACT, FEROZ PICC LINE INFUSING 1/2NS AT 5ML/HR, TKO. SKIN IS NONINTACT, WITH SACRAL COCCYX PRESSURE ULCER. STANDARD, FALL, AND ASPIRATION PRECAUTIONS MAINTAINED. ON THERAPEUTIC MATTRESS. Addendum: 01/01/19 at 2046 by Kellie Soto RN PT MOTHER AT BEDSIDE.
[2019-01-01] MEDS: VANCOMYCIN 750 MG in DEXTROSE 5% 250 ML IV SCH (20:13)
[2019-01-01] MEDS ORDERED: VANCOMYCIN 1GM/DEXT 5% PREMIX 200 ML IV SCH (21:00)
--- NOTE | 2019-01-01 22:05 | NUR ---
PT REPOSITIONED, URINE IS CLEAR/YELLOW, LOOSE DARK BROWN STOOL IN COLOSTOMY. PT EASY TO AROUSE, OPENS EYES SPONTANEOUSLY. SUCTION X1.
[2019-01-02] VITALS (20 sets, daily range): BP systolic 85–117; BP diastolic 45–62
--- NOTE | 2019-01-02 00:30 | NUR ---
VAP ORAL CARE PROVIDED. NO SUCTIONING PROVIDED. TEMP 98.0, VSS.
[2019-01-02] MEDS: HYDRAGUARD CREAM TP SCH ×2 (01:41→13:09)
[2019-01-02] MEDS: MORPHINE SULFATE 2 MG/ML SYR IVP PRN (02:55)
--- NOTE | 2019-01-02 03:04 | NUR ---
RT NGUYỄN AT BEDSIDE TO SEE PATIENT, MORPHINE GIVEN, FLACC 7.
--- NOTE | 2019-01-02 03:45 | NUR ---
DR. DOTY IN THE UNIT. UPDATED HIM REGARDING PT'S CONDITION. FOLLOWED UP REGARDING CULTURES IF WOUND CX CAN BE ADDED. PER DR. DOTY, WILL FOLLOW-UP WITH THE DAY TEAM.
--- NOTE | 2019-01-02 04:25 | NUR ---
AM, VAP, AND WHITMORE CATH CARE PROVIDED. PT ABLE TO MOUTH WORDS/ANSWER SIMPLE COMMANDS. REPOSITIONED, SUCTIONED X1, YELLOW-WHITE MINIMAL SECRETIO NOTED. TOLERATED WELL.
[2019-01-02] MEDS: LORazepam 2 MG/ML VIAL IM/IVP PRN (04:52)
--- NOTE | 2019-01-02 04:54 | NUR ---
PT RESTLESS AT THIS TIME, MOUTHING TO "TAKE THIS OFF" X3. WHEN ASKED IF SHE WAS REFERRING TO THE TRACH SHE SAID YES, I INFORMED THE PATIENT THAT THE TRACH CANNOT BE REMOVED IT IS NEEDED TO HELP HER BREATH. ATIVAN IVP GIVEN AT THIS TIME.
[2019-01-02] MEDS: diphenhydrAMINE 12.5 MG/5 ML UDC GT SCH ×3 (05:04→17:02)
[2019-01-02] MEDS: levETIRAcetam 100 MG/ML ORASYR GT SCH ×3 (05:04→20:24)
[2019-01-02] MEDS: METOCLOPRAMIDE 10 MG/10 ML SYRP UDC GT SCH ×3 (05:04→17:04)
[2019-01-02] MEDS: PIPER/TAZO 3.375GM/D5W PREMIX 50 ML IV SCH ×3 (05:04→20:24)
[2019-01-02] MEDS: ALBUTEROL SULFATE/IPRATROPIU 3 ML SOL IH SCH ×3 (06:24→19:01)
--- NOTE | 2019-01-02 06:24 | NUR ---
RECEIVED PT ON CARESCAPE ON DOCUMENTED SETTINGS, ALARMS ARE ON AND AUDIBLE, PTS TRACH CHAPARRITA DCT SIZE 6 IS SECURE, BS CLEAR PT IN HF ASLEEP, HHN GIVEN I\L WITH 3 MG DUONEB BMV HOB VENT PLUGGED INTO RED OUTLET
[2019-01-02] MEDS ORDERED: LACTULOSE 20 GM/30 ML UDC GT ONE (06:25)
--- NOTE | 2019-01-02 06:30 | NUR ---
CALLED ICU FOR UPDATE ON PATIENT STATUS. STATED HE WILL BE COMING TO VISIT THIS MORNING.
--- NOTE | 2019-01-02 07:08 | NUR ---
RECEIVED BEDSIDE REPORT FROM NEURO UROLOGIST RN, HARRIET, FOR CONTINUITY OF CARE. PATIENT IS AAOX3, ABLE TO MAKE SOME NEEDS KNOWN. PATIENT SKIN IS WARM AND DRY, AFEBRILE, NOT INTACT, SHE HAS PRESSURE INJURY TO SACROCOCCYX AND LEFT BUTTOCKS, DRESSING CLEAN AND DRY. PATIENT IS TRACH TO VENT, SETTINGS ARE AC 12, FIO2 30%, TV 400, PEEP 5, BREATHING EVEN AND UNLABORED. PATIENT IS SR WITH BBB ON MONITOR. DENIES PAIN AT THIS TIME. PATIENT HAS GTUBE TO LEFT UPPER QUAD TO TUBE FEEDING, NO RESIDUAL NOTED. WHITMORE CATHETER IN PLACE TO CLEAR YELLOW URINE. PATIENT HAS COLOSTOMY BAG TO LEFT LOWER QUAD. SAFETY PRECAUTIONS ASSESS AND ENFORCED. HOB IS 30 DEGREES. NO SIGNS OF DISTRESS AT THIS TIME. WILL CONTINUE TO MONITOR
[2019-01-02 07:12] LABS: BASOPHILS % (AUTO) 0.3 % (0.0-2.0); EOSINOPHILS # (AUTO) 0.6 K/uL (0-0.4); EOSINOPHILS % (AUTO) 10.5 % (0.0-4.0); HEMATOCRIT 28.6 % (36-48); HEMOGLOBIN 8.9 g/dL (12.0-16.0); LYMPHOCYTES # (AUTO) 0.5 K/uL (2.5-16.5); LYMPHOCYTES % (AUTO) 9.5 % (20.5-51.1); MEAN CORPUSCULAR HEMOGLOBIN 27 pg (27-31); MEAN CORPUSCULAR HGB CONC 31 g/dL (33-37); MEAN CORPUSCULAR VOLUME 85.5 fL (80-94); MONOCYTES # (AUTO) 0.4 K/uL (0.8-1.0); MONOCYTES % (AUTO) 7.8 % (1.7-9.3); NEUTROPHILS % (AUTO) 71.9 % (42.2-75.2); PLATELET COUNT (AUTO) 203 K/uL (140-450); RED BLOOD CELL COUNT(AUTO) 3.35 MIL/uL (4.20-5.40); RED CELL DISTRIBUTION WIDTH 19.3 % (11.6-13.7); WHITE BLOOD COUNT (AUTO) 5.5 K/uL (4.8-10.8)
[2019-01-02 07:42] LABS: PHOSPHORUS 3.6 mg/dL (2.5-4.9)
[2019-01-02] MEDS: BLOOD GLUCOSE MONITORING 1 DEV DEV FS SCH ×4 (07:45→20:23)
[2019-01-02 07:46] LABS: ANION GAP 10.5 (8-16); CARBON DIOXIDE 26.3 mmol/L (21-32); CREATININE 0.5 mg/dL (0.6-1.3); POTASSIUM 3.8 mmol/L (3.5-5.1)
[2019-01-02] MEDS: PANTOPRAZOLE 40 MG INJ VIAL IVP SCH (08:09)
[2019-01-02] MEDS: TOPIRAMATE 25 MG TAB GT SCH ×2 (08:09→20:56)
[2019-01-02] MEDS: GABAPENTIN 100 MG CAP GT SCH ×3 (08:09→16:50)
[2019-01-02] MEDS: ASCORBIC ACID 500 MG TAB GT SCH (08:09)
[2019-01-02] MEDS: SERTRALINE 50 MG TAB GT SCH (08:10)
[2019-01-02] MEDS: LEVOTHYROXINE 0.1 MG TAB GT SCH (08:10)
[2019-01-02] MEDS: BACLOFEN 10 MG TAB GT SCH ×3 (08:10→16:49)
[2019-01-02] MEDS: ZINC SULF 220 MG CAP GT SCH (08:11)
[2019-01-02] MEDS: ENOXAPARIN 40 MG/0.4 ML SYR SUBQ SCH (08:12)
--- NOTE | 2019-01-02 08:37 | NUR ---
PATIENT'S MOTHER IS AT BEDSIDE.
[2019-01-02] MEDS: traMADol 50 MG TAB GT PRN (08:52)
[2019-01-02] MEDS: VANCOMYCIN 750 MG in DEXTROSE 5% 250 ML IV SCH ×2 (09:09→20:56)
--- NOTE | 2019-01-02 09:16 | NUR ---
PATIENT'S IS AT BEDSIDE
--- NOTE | 2019-01-02 09:37 | NUR ---
DR. PINEDA AND DR. WISEMAN AT BEDSIDE TO ROUND ON PATIENT, SPOKE WITH PATIENT'S REGARDING POC.
--- NOTE | 2019-01-02 11:18 | NUR ---
PATIENT CLEANED AND REPOSITIONED FOR COMFORT. CHANGED PATIENT'S COLOSTOMY BAG, 200ML OUTPUT NOTED. PATIENT TOLERATED WELL. WILL CONTINUE TO MONITOR
--- NOTE | 2019-01-02 12:41 | NUR ---
PATIENT REFUSED ORAL CARE AT THIS TIME, EDUCATED ON RISKS OF GETTING VENTILATOR ASSOCIATED PNA, PATIENT STATES SHE DOES NOT ORAL CARE AT THIS TIME.
[2019-01-02] MEDS: THERAHONEY GEL 42.5 GM TP SCH (13:08)
[2019-01-02] MEDS: Z-GUARD PASTE TP SCH (13:09)
[2019-01-02] MEDS: fentaNYL 0.1 MG/HR PATCH TD SCH (13:10)
--- NOTE | 2019-01-02 15:55 | NUR ---
ORAL CARE PROVIDED, HYDRAGAURD APPLIED TO FACE AND EXTREMITIES. PATIENT TOLERATED WELL. NO SIGNS OF DISTRESS AT THIS TIME. WILL CONTINUE TO MONITOR
--- NOTE | 2019-01-02 18:16 | NUR ---
PATIENT CLEAN AND REPOSITIONED, TOLERATED WELL.
--- NOTE | 2019-01-02 19:08 | NUR ---
Received pt stable on vent support at documented settings, suctioned small amount of thin white secretions, hhn tx given, tolerated well, no resp distress or SOB noted at this time, Shiley 6 trach secured/patent/midline, alarms set and audible, ambu bag at bedside, vent plugged into red outlet, cont pulse ox on, will cont to monitor.
--- NOTE | 2019-01-02 19:15 | NUR ---
ENDORSED CONTINUITY OF CARE TO CAR RENTAL AGENCY MANAGER RNHARRIET, NO SIGNS OF DISTRESS AT THIS TIME
--- NOTE | 2019-01-02 19:34 | NUR ---
RECEIVED BEDSIDE REPORT FROM MORNING SHIFT RNCLAUDETTE. PT SLEEPING, DOES NOT RESPOND TO VOICE/TOUCH AT THIS TIME. TEMP 97.7, BP 99/47, HR=57, SATING 100, RR=12. LUNG SOUNDS CLEAR/UPPER LOWER BILATERAL LOBES. TRACH TO VENT AC/VC RR=12, FIO2=28, UL=507, FLOW 35 L/MIN. PEEP=5. SB W/ BBB ON TECHNICAL BUSINESS ANALYST. BOWEL SOUNDS HYPOACTIVE, GTUBE IN PLACE, GLUCERNA 1.2 AT 50CC/HR, RESIDUAL 110CC, FEEDINGS CONTINUED AT THIS TIME. FEROZ PICC LINE INFUSING 1/2NS AT 5CC/HR, TO KEEP OPEN.RIGHT HAND 22 GAUGE PIV INTACT, SALINE FLUSHED. WHITMORE CATH IN PLACE, URINE CLEAR/YELLOW. PT ON THERAPEUTIC MATTRESS. SKIN IS NON=INTACT SACRALCOCCYX PRESSURE AND LEFT BUTTOCKS PRESSURE ULCER NOTED, DRESSING IS DRY/INTACT. HOB ELEVATED, STANDARD, FALL RISK PRECAUTIONS MAINTAINED.
--- NOTE | 2019-01-02 23:43 | NUR ---
PT REMAINS DROWSY AT THIS TIME, OPENS EYES TO LIGHT PHYSICAL STIMULATION. VAP ORAL CARE PROVIDED.
[2019-01-03] VITALS (17 sets, daily range): BP systolic 84–109; BP diastolic 45–67
--- NOTE | 2019-01-03 00:07 | NUR ---
TEMP 97.7, VAP ORAL CARE PROVIDED, PT TOLERATED WELL. OPENS EYES SPONTANEOUSLY BUT DOES NOT RESPOND TO COMMANDS, HOB ABOVE 30 DEG.
--- NOTE | 2019-01-03 00:31 | NUR ---
CALLED VICKI EASLEY TO HOLD BENADRYL AT THIS TIME DUE TO PT DROWSINESS. WILL CARRY OUT.
[2019-01-03] MEDS: METOCLOPRAMIDE 10 MG/10 ML SYRP UDC GT SCH ×4 (00:35→17:04)
[2019-01-03] MEDS: HYDRAGUARD CREAM TP SCH ×2 (00:35→12:34)
--- NOTE | 2019-01-03 03:10 | NUR ---
AM CARES PROVIDED, PT MORE ALERT AT THIS TIME, RESPONDS TO VOICE, OPENS EYES SPONTANEOUSLY. TOLERATED REPOSITIONING AND MORNING CARES. HOB AND LEGS ELEVATED WITH PILLOWS. VAP ORAL CARE SUCTIONING X2.
[2019-01-03] MEDS: LORazepam 2 MG/ML VIAL IM/IVP PRN (03:17)
[2019-01-03] MEDS: levETIRAcetam 100 MG/ML ORASYR GT SCH ×3 (05:00→20:54)
[2019-01-03] MEDS: PIPER/TAZO 3.375GM/D5W PREMIX 50 ML IV SCH ×3 (05:00→20:53)
--- NOTE | 2019-01-03 05:19 | NUR ---
URINE OUTPUT 250ML/ FROM WHITMORE CATHETER, ONE EPISODE URINE OUTPUT UNMEASURED ON PAD. WHITMORE CATH CARE PROVIDED. COLOSTOMY BAG, LOOSE WATERLY LIKE STOOL 50ML, BROWN IN COLOR. PT IS SLEEPING, FLACC 0.
[2019-01-03] MEDS: diphenhydrAMINE 12.5 MG/5 ML UDC GT SCH ×4 (05:45→17:04)
--- NOTE | 2019-01-03 05:58 | NUR ---
HELD BENADRYL AT THIS TIME DUE TO PT DROWSINESS AROUSES TO LIGHT SHAKING, HR 56-58.
[2019-01-03] MEDS: ALBUTEROL SULFATE/IPRATROPIU 3 ML SOL IH SCH ×3 (06:24→18:43)
--- NOTE | 2019-01-03 06:24 | NUR ---
RECEIVED PT ON CARESCAPE ON DOCUMENTED SETTINGS, ALARMS ARE ON AND AUDIBLE, PTS TRACH CHAPARRITA DCT SIZE 6 IS SECURE, PT IN HF ASLEEP BS CLEAR HHN GIVEN I\L WITH 3 MG DUONEB NO APPARENT SOB, BMV HOB, VENT PLUGGED INTO RED OUTLET
[2019-01-03 06:55] LABS: CREATININE 0.6 mg/dL (0.6-1.3)
[2019-01-03 06:58] LABS: PHOSPHORUS 5.2 mg/dL (2.5-4.9)
[2019-01-03 07:02] LABS: BASOPHILS % (AUTO) 0.3 % (0.0-2.0); EOSINOPHILS # (AUTO) 0.6 K/uL (0-0.4); EOSINOPHILS % (AUTO) 11.2 % (0.0-4.0); HEMATOCRIT 28.4 % (36-48); HEMOGLOBIN 8.8 g/dL (12.0-16.0); LYMPHOCYTES # (AUTO) 0.6 K/uL (2.5-16.5); LYMPHOCYTES % (AUTO) 9.7 % (20.5-51.1); MEAN CORPUSCULAR HEMOGLOBIN 27 pg (27-31); MEAN CORPUSCULAR HGB CONC 31 g/dL (33-37); MEAN CORPUSCULAR VOLUME 86.3 fL (80-94); MONOCYTES # (AUTO) 0.5 K/uL (0.8-1.0); MONOCYTES % (AUTO) 8.9 % (1.7-9.3); NEUTROPHILS % (AUTO) 69.9 % (42.2-75.2); PLATELET COUNT (AUTO) 215 K/uL (140-450); RED BLOOD CELL COUNT(AUTO) 3.29 MIL/uL (4.20-5.40); RED CELL DISTRIBUTION WIDTH 19.5 % (11.6-13.7); WHITE BLOOD COUNT (AUTO) 5.8 K/uL (4.8-10.8)
[2019-01-03] MEDS: BLOOD GLUCOSE MONITORING 1 DEV DEV FS SCH ×4 (07:26→20:53)
--- NOTE | 2019-01-03 07:30 | NUR ---
RECEIVED REPORT FROM NAIL WELTER NURSE AT BEDSIDE, PT OPEN EYES ONLY, UNABLE TO FOLLOW COMMANDS AT THIS TIME, VSS, FLACC 0, TRACH TO VENT SETTING WITH FIO2 24, TV 400, R 12, PEEP 5, O2 SAT 100%, RHONCHI LUNG SOUND SINDY. SR WITH BBB ON BUTTON RIVETER, SOFT ABDOMEN WITH ACTIVE BOWEL SOUNDS, GT IN PLACE FEEDING WITH GLUCERNA AT 50ML/HR, NO RESIDUALS AT THIS TIME, COLOSTOMY BAG IN PLACE WITH BROWN FECES NOTED, F/C IN PLACE WITH CLEAR YELLOW URINE VIA GRAVITY, CONTRACTURES TO ALL EXTREMITIES NOTED. SKIN IS WARM AND DRY TO TOUCH, OPEN WOUND PRESENT( SEE WOUND ASSESSMENT) PICC LINE TO RIGHT UPPER ARM, FLUSHED WITH GOOD BLOOD RETURN, KVO, IV SITE TO RIGHT HAND, 22GA, SL. HOB ELEVATED TO 30 DEGREES, SAFETY MEASURES IN PLACE, WILL CONTINUE TO MONITOR.
--- NOTE | 2019-01-03 08:00 | NUR ---
ORAL CARE PROVIDED, POSITION CHANGED FOR OFF LOAD PRESSURE.
--- NOTE | 2019-01-03 09:00 | NUR ---
SCHEDULED MEDICATION GIVEN VIA GT, PT TOLERATED WELL.
[2019-01-03] MEDS: PANTOPRAZOLE 40 MG INJ VIAL IVP SCH (09:04)
[2019-01-03] MEDS: SERTRALINE 50 MG TAB GT SCH (09:04)
[2019-01-03] MEDS: TOPIRAMATE 25 MG TAB GT SCH ×2 (09:05→20:54)
[2019-01-03] MEDS: GABAPENTIN 100 MG CAP GT SCH ×3 (09:05→17:04)
[2019-01-03] MEDS: BACLOFEN 10 MG TAB GT SCH ×3 (09:05→17:04)
[2019-01-03] MEDS: VANCOMYCIN 750 MG in DEXTROSE 5% 250 ML IV SCH (09:05)
[2019-01-03] MEDS: ZINC SULF 220 MG CAP GT SCH (09:08)
[2019-01-03] MEDS: ASCORBIC ACID 500 MG TAB GT SCH (09:08)
[2019-01-03] MEDS: LEVOTHYROXINE 0.1 MG TAB GT SCH (09:09)
[2019-01-03] MEDS: ENOXAPARIN 40 MG/0.4 ML SYR SUBQ SCH (09:09)
--- NOTE | 2019-01-03 10:00 | NUR ---
NO CHANGE OF CONDITION AT THIS TIME, POSITION CHANGED FOR OFF LOAD PRESSURE, PT'S FATHER AT BEDSIDE.
--- NOTE | 2019-01-03 12:00 | NUR ---
PT IS AAOX3, ABLE TO FOLLOW COMMANDS AND MAKE NEEDS KNOWN, DENIES PAIN, VSS, POSITION CHANGED FOR OFF LOAD PRESSURE.
[2019-01-03] MEDS: Z-GUARD PASTE TP SCH (12:33)
[2019-01-03] MEDS: THERAHONEY GEL 42.5 GM TP SCH (12:35)
[2019-01-03] MEDS ORDERED: VANCOMYCIN PER PHARMACY MC PRN (13:10)
--- NOTE | 2019-01-03 13:15 | NUR ---
WOUND CARE PROVIDED, PT TOLERATED WELL. PT'S DAUGHTER CAME IN TO SEE PT AT BEDSIDE, QUESTIONS ANSWERED WITH SALIVATION.
--- NOTE | 2019-01-03 15:02 | NUR ---
01/03/19 RD FOLLOW UP COMPLETED PLEASE REFER TO NUTRITION ASSESSMENT UNDER CARE ACTIVITY FOR ESTIMATED NUTRITIONAL NEEDS. 1. CONTINUE GLUCERNA 1.2 AT 50 ML/HR -THIS WILL PROVIDE A VOLUME OF 1200 ML, 1440 KCAL, 72 GM OF PROTEIN. IT MEETS 100% OF PATIENT�S ENERGY NEEDS AND 99% OF PROTEIN NEEDS. 2. CONTINUE FWF [address] TO FOLLOW-UP 2-3 DAYS, HIGH RISK VICTOR MANUEL AYALA RD
--- NOTE | 2019-01-03 16:00 | NUR ---
PT IS RESTING IN BED, NO S/S OF DISTRESS, VSS, FLACC 0, PM CARE AND F/C CARE PROVIDED, ORAL CARE PROVIDED, POSITION CHANGED FOR OFF LOAD PRESSURE.
--- NOTE | 2019-01-03 17:00 | NUR ---
CALLED PT'S DAUGHTER PURA AND NOTIFIED OF PT'S TRANSFER TO TELEMETRY RM 108 B THIS EVENING.
[2019-01-03] MEDS: MORPHINE SULFATE 2 MG/ML SYR IVP PRN (17:05)
--- NOTE | 2019-01-03 17:05 | NUR ---
PT RESTLESSNESS, ASK FOR PAIN MEDICATION, FLACC 8, MORPHINE, MEDICATION EDUCATION GIVEN.
--- NOTE | 2019-01-03 17:15 | NUR ---
PT'S ASHLEY NOTIFIED OF PT'S TRANSFER TO TELEMETRY TONIGHT. ASKED PT'S RE: ISOLATION HISTORY OF THE PT. STATES SHE'S BEEN ON ISOLATION PRECAUTIONS AT [facility] IN [place] AT ONE TIME BUT DOES NOT RECALL FOR WHAT.
--- NOTE | 2019-01-03 18:00 | NUR ---
PT IS ASLEEP AFTER MORPHINE GIVEN, BP 89/51, NO S/S OF DISTRESS, DR. VALLEJO MADE AWARE. Addendum: 01/03/19 at 1830 by Mariel Phelps RN NO DR. VALLEJO, IT IS DR. BROWN
[2019-01-03] MEDS ORDERED: MORPHINE SULFATE 2 MG/ML SYR IVP PRN (18:35)
--- NOTE | 2019-01-03 19:12 | NUR ---
REPORT GIVEN TO LOG LOADER NURSE FOR CONTINUE OF CARE, PT IS IN STABLE CONDITION AT THIS TIME.
--- NOTE | 2019-01-03 19:15 | NUR ---
RECEIVED BEDSIDE REPORT FROM MORNING NURSE, PATIENT OPENS HER EYES TO LIGHT TOUCH, NON VERBAL. TRACT TO VENT WITH VENT SETTING A/C FIO2 24%, VT 400, RATE 12, PEEP 5. TOLERATED WELL WITH VENT SETTING. NO ACUTE RESPIRATORY DISTRESS NOTED. BILATERAL LUNGS SOUND RHONCHI NOTED. SR WITH BBB ON THE MONITOR. G TUBE TO FEEDING, GLUCERNA 1.2 50ML/HR WITH H2O 150ML Q6, CHECKED RESIDUAL 10CC NOTED. COLOSTOMY BAG TO LEFT LOWER QUAD WITH BROWN LIQUID BOWEL NOTED. ACTIVE BOWEL SOUND FROM ALL [address] WITH CLEAR YELLOW URINE NOTED. PRESSURE ULCERS TO LEFT HIP AND SACRAL AREA. CONTRACTURE NOTED TO ALL EX'S. HOB ELEVATED OVER 30 DEGREE, BED IN LOW POSITION. CALL LIGHT WITHIN REACH. WILL CONTINUE TO MONITOR.
--- NOTE | 2019-01-03 20:55 | NUR ---
ADMINISTERED SCHEDULED MEDICATIONS ORDERED. TOLERATED WELL WITH VENT AND TUBE FEEDING. NO ACUTE DISTRESS NOTED. FLACC 0. WILL CONTINUE TO MONITOR. Addendum: 01/03/19 at 2252 by Kiki Ying RN BS CHECKED 81 NOTED.
--- NOTE | 2019-01-03 21:26 | NUR ---
DR. HAYS AT BEDSIDE TO SEE PT. WILL FOLLOW-UP WITH ANY NEW ORDERS.
--- NOTE | 2019-01-03 23:05 | NUR ---
PATIENT TRANSFERRED FROM ICU, BEDSIDE REPORT RECEIVED FROM JAY EDGE, PATIENT TRACH TO VENT, FIO2 24, VT 400, PEEP 5, O2SAT 100% RR 18 BP 97/53 HR 60-58, SR ON TELE, LUNG SOUNDS DIMINISHED IN LOWER LOBES. AAOX0, OPENS EYES TO PAIN. RIGHT UPPER ARM PICC, DOUBLE LUMEN INFUSING NS AT 5 ML/HR, RIGHT HAND IV, 22G, SL. LEFT LOWER QUAD G TUBE IN PLACE INFUSING GLUCERNA 1.2 AT 50 ML/HR WITH H20 FLUSH Q6H WITH 150 ML, 5 ML RESIDUALS NOTED. LEFT COLOSTOMY BAG IN PLACE, LIGHT BROWN STOOL NOTED. WHITMORE CATH IN PLACE, DRAINING YELLOW URINE 800 ML. ON WOUND BED, PRESSURE ULCER NOTED, DRESSING CHANGED ON 01/03/19 ACCORDING TO JAY EDGE. FALL AND SEIZURE PRECAUTIONS IN PLACE, WILL CONTINUE TO MONITOR.
--- NOTE | 2019-01-03 23:20 | NUR ---
PATIENT TRANSFERRED TO TELE 108B. NO ACUTE DISTRESS NOTED. FLACC 0.
--- NOTE | 2019-01-03 23:25 | NUR ---
2315 TRANSFERED PT TO ROOM 108. PT BEING BAGGED AND PLACED ON VENT WITH SAME SETTINGS. NO SOB NOTED
[2019-01-04] VITALS: BP 98/59
[2019-01-04] MEDS: diphenhydrAMINE 12.5 MG/5 ML UDC GT SCH ×4 (00:13→17:32)
[2019-01-04] MEDS: HYDRAGUARD CREAM TP SCH ×2 (00:13→12:23)
[2019-01-04] MEDS: METOCLOPRAMIDE 10 MG/10 ML SYRP UDC GT SCH ×4 (00:13→17:32)
--- NOTE | 2019-01-04 00:13 | NUR ---
DUE MEDICATIONS GIVEN, BP 98/57 HR 58, FLACC-0.
--- NOTE | 2019-01-04 02:37 | NUR ---
FAXED AUTHORIZATION FOR HEALTH INFORMATION TO [facility]. CALLED TO RECEIVE VERBAL CONSENT TO REQUESTED INFORMATION FROM [facility] IN [place], NO ANSWER, WILL ENDORSE TO DAY SHIFT.
[2019-01-04 04:00] VITALS: BP 99/56
--- NOTE | 2019-01-04 04:14 | NUR ---
V/S TAKEN BP 99/56 HR 68 FLACC-0
[2019-01-04] MEDS: PIPER/TAZO 3.375GM/D5W PREMIX 50 ML IV SCH ×3 (05:44→21:16)
[2019-01-04] MEDS: levETIRAcetam 100 MG/ML ORASYR GT SCH ×3 (05:44→21:17)
[2019-01-04] MEDS: BLOOD GLUCOSE MONITORING 1 DEV DEV FS SCH ×4 (05:45→21:28)
--- NOTE | 2019-01-04 05:53 | NUR ---
DUE MEDICATIONS GIVEN, BG 108
--- NOTE | 2019-01-04 06:19 | NUR ---
CALL BACK FROM PURA THE DAUGHTER, PURA REFUSED TO GIVE CONSENT TO OBTAIN RECORDS FROM [facility], DAUGHTER WANTS TO OBTAIN RECORDS FROM [facility].
[2019-01-04] MEDS: ALBUTEROL SULFATE/IPRATROPIU 3 ML SOL IH SCH ×3 (06:31→19:26)
--- NOTE | 2019-01-04 06:32 | NUR ---
RECEIVED PT ON CARESCAPE ON DOCUMENTED SETTINGS, ALARMS ARE ON AND AUDIBLE, PTS TRACH CHAPARRITA DCT 6 IS SECURE, PTIN HF ASLEEP BS CLEAR, HHN GVIEN I\L WITH 3 MG DUONEB, BMV HOB NO SOB NOTED, CONT. POX IN PLACE, VENT PLUGGED INTO RED OUTLET
[2019-01-04 07:03] LABS: BASOPHILS % (AUTO) 0.7 % (0.0-2.0); EOSINOPHILS # (AUTO) 0.6 K/uL (0-0.4); EOSINOPHILS % (AUTO) 12.4 % (0.0-4.0); HEMATOCRIT 28.8 % (36-48); LYMPHOCYTES # (AUTO) 0.7 K/uL (2.5-16.5); LYMPHOCYTES % (AUTO) 13.1 % (20.5-51.1); MEAN CORPUSCULAR HEMOGLOBIN 27 pg (27-31); MEAN CORPUSCULAR HGB CONC 31 g/dL (33-37); MEAN CORPUSCULAR VOLUME 85.9 fL (80-94); MONOCYTES # (AUTO) 0.5 K/uL (0.8-1.0); MONOCYTES % (AUTO) 8.9 % (1.7-9.3); NEUTROPHILS # (AUTO) 3.3 K/uL (1.8-7.7); NEUTROPHILS % (AUTO) 64.9 % (42.2-75.2); PLATELET COUNT (AUTO) 175 K/uL (140-450); RED BLOOD CELL COUNT(AUTO) 3.35 MIL/uL (4.20-5.40); RED CELL DISTRIBUTION WIDTH 19.2 % (11.6-13.7); WHITE BLOOD COUNT (AUTO) 5.1 K/uL (4.8-10.8)
--- NOTE | 2019-01-04 07:24 | NUR ---
ENDORSED PATIENT TO DAY SHIFT NURSE, PATIENT STABLE.
--- NOTE | 2019-01-04 07:25 | NUR ---
RECEIVED BEDSIDE REPORT FROM GRAB HOOKER NURSE. PATIENT IS APHASIC. TRACH TO VENT, FIO2 24 VT 400 RATE 12 FLOW 35 PEEP 5 PMAX 45. PATIENT IS BEDBOUND. FALL RISK PROTOCOL IN PLACE. SEIZURE PRECAUTIONS IN PLACE. WHITMORE IN PLACE. PATENT, COLOSTOMY BAG IN PLACE, STOOL IS BROWN LIQ. WOUND CARE BED IN PLACE. 2 SACRAL ULCERS. DRESSINGS ARE CLEAN, DRY AND INTACT. GTUBE IN PLACE INFUSING GLUCERNIA 1.2 AT 50 W H20 FLUSH 150 Q6HRS. CLEAN, DRY AND INTACT. FEROZ PICC LINE, DOUBLE LUMEN INFUSING NS AT 5, TKO, CLEAN, DRY AND INTACT. R HAND 22G SL. CLEAN, DRY AND INTACT. BED IN LOW POSITION. BED ALARM ON. CALL LIGHT WITHIN REACH. WILL CONTINUE TO MONITOR THE PATIENT
[2019-01-04 07:31] LABS: ANION GAP 12.5 (8-16); CARBON DIOXIDE 26.6 mmol/L (21-32); CREATININE 0.6 mg/dL (0.6-1.3); POTASSIUM 4.1 mmol/L (3.5-5.1)
[2019-01-04 07:32] LABS: ALBUMIN 2.2 g/dL (3.4-5.0); PHOSPHORUS 4.8 mg/dL (2.5-4.9); TOTAL BILIRUBIN 0.3 mg/dL (0.0-1.0)
[2019-01-04 08:00] VITALS: BP 126/63
[2019-01-04] MEDS: ENOXAPARIN 40 MG/0.4 ML SYR SUBQ SCH ×2 (09:00→11:00)
--- NOTE | 2019-01-04 09:19 | NUR ---
PATIENT REFUSING MEDS, JAY MCCARTHY AT BEDSIDE, WITNESSED PATIENT SAID NO TO MEDS, SHE NODDED NO AND WE READ HER LIPS, SHE SAID "I DONT WANT THEM" EDUCATED ON THE IMPORTANCE OF MEDS. SHE STILL REFUSED. DR REYES AWARE. HE SAID HE WILL GO IN TO SEE THE PATIENT.
[2019-01-04] MEDS: LEVOTHYROXINE 0.1 MG TAB GT SCH (10:51)
[2019-01-04] MEDS: ZINC SULF 220 MG CAP GT SCH (10:51)
[2019-01-04] MEDS: GABAPENTIN 100 MG CAP GT SCH ×3 (10:51→16:39)
[2019-01-04] MEDS: SERTRALINE 50 MG TAB GT SCH (10:52)
[2019-01-04] MEDS: TOPIRAMATE 25 MG TAB GT SCH ×2 (10:52→21:17)
[2019-01-04] MEDS: ASCORBIC ACID 500 MG TAB GT SCH (10:52)
[2019-01-04] MEDS: BACLOFEN 10 MG TAB GT SCH ×3 (10:52→16:39)
[2019-01-04] MEDS: PANTOPRAZOLE 40 MG INJ VIAL IVP SCH (10:53)
--- NOTE | 2019-01-04 11:11 | NUR ---
DR REYES TALKED TO PATIENT AND SHE AGREED ON TAKING HER MORNING MEDS. CYN HEARD, NO RESIDUAL W GTUBE. CRUSHED AND ADMINISTERED MEDS. FLUSHED BEFORE AND AFTER. PATIENT TOLERATED WELL. WILL CONTINUE TO MONITOR THE PATIENT. DR REYES MADE AWARE THAT PATIENT BECOMES SINUS TACHY, COMMUNITY BOARD MEMBER TO PRINT OUT THE CARDIAC RHYTHM AT THAT TIME AND WILL GIVE TO THE
[2019-01-04 12:00] VITALS: BP 123/67
[2019-01-04] MEDS: THERAHONEY GEL 42.5 GM TP SCH (12:24)
[2019-01-04] MEDS: Z-GUARD PASTE TP SCH (12:24)
--- NOTE | 2019-01-04 12:30 | NUR ---
CYN HEARD. CRUSHED AND ADMINISTERED MEDS. FLUSHED BEFORE AND AFTER. PATIENT TOLERATED WELL. DR REYES AWARE THAT PATIENT VOMITED AND RT WAS CALLED TO DEEP SUCTION THE PATIENT. HE SAID TO GIVE ZOFRAN AND TO HOLD THE FEEDING FOR A FEW HOURS. WILL CONTINUE TO MONITOR THE PATIENT
--- NOTE | 2019-01-04 13:19 | NUR ---
PATIENT IS CRYING D/T PAIN. ADMINISTERED PRN PAIN MED MORPHINE. PATIENT TOLERATED WELL. EDUCATED ON SIDE EFFECTS. WILL CONTINUE TO MONITOR THE PATIENT. BED IN LOW POSITION
--- NOTE | 2019-01-04 14:11 | NUR ---
PATIENT LAYING IN BED. NO SIGNS OF DISTRESS TRACH TO VENT. WILL CONTINUE TO MONITOR THE PATIENT
--- NOTE | 2019-01-04 15:29 | NUR ---
PATIENT IS SLEEPING. NO SIGNS OF DISTRESS. WILL CONTINUE TO MONITOR THE PATIENT.
[2019-01-04 16:00] VITALS: BP 111/60
--- NOTE | 2019-01-04 16:49 | NUR ---
ADMINISTERED PRN PAIN MED TYLENOL. PATIENT REQUESTING PAIN MED BEFORE GETTING TURNED. ALSO ADMINISTERED PAO MEDS. EDUCATED ON SIDE EFFECTS. PATIENT TOLERATED WELL. WILL CONTINUE TO MONITOR THE PATIENT
[2019-01-04] MEDS ORDERED: TOBRAMYCIN PER PHARMACY MC PRN (16:55)
--- NOTE | 2019-01-04 17:34 | NUR ---
CYN HEARD. 50ML RESIDUAL. ADMINISTERED MEDS. FLUSHED BEFORE AND AFTER. PATIENT TOLERATED WELL. WILL CONTINUE TO MONITOR THE PATIENT
[2019-01-04] MEDS: DEXTROSE 5% IV SCH (18:24)
[2019-01-04] MEDS: TOBRAMYCIN IV SCH (18:24)
--- NOTE | 2019-01-04 18:27 | NUR ---
ADMINISTERED IV ANTIBIOTICS. PATIENT TOLERATING WELL. WILL CONTINUE TO MONITOR THE PATIENT
[2019-01-04] MEDS ORDERED: LACTULOSE 20 GM/30 ML UDC GT SCH (18:30)
--- NOTE | 2019-01-04 19:15 | NUR ---
RECEIVED REPORT FORM DAY SHIFT NURSE. TRACH TO VENT. PT NON VERBAL. NO S/S OF PAIN OR SOB. PT HAS PICC LINE TO RIGHT UPPER ARM. IV TO RIGHT HAND #22G, SALINE LOCK. G-TUBE IN PLACE WITH FEEDING GLUCERNA 1.2 AT 30 ML/HR, H20 FLUSH 150 ML Q6H. PT HAS COLOSTOMY BAG TO LEFT LOWER QUADRANT WITH BROWN LIQUID STOOL. WHITMORE CATH IN PLACE DRAINING CLEAR YELLOW URINE. PT HAS SACRAL PRESSURE ULCER AND LEFT HIP PRESSURE ULCER. SAFETY, ASPIRATION AND SEIZURE PRECAUTION SIN PLACE.
--- NOTE | 2019-01-04 19:25 | NUR ---
gave bedside report to civil engineer helper nurse. patient endorsed in stable condition
--- NOTE | 2019-01-04 19:26 | NUR ---
RECEIVED PATIENT ON CURRENT SETTINGS: AC/VC 400 RATE 12 PEEP 5 FIO2 28%. PT IS TRACH'D WITH A SHILEY SIZE 6 THAT IS SECURE WITH TRACH TIES AND HAS PROTECTIVE GAUZE. THE TRACH AREA AND GAUZE IS CLEAN. TREATMENT GIVEN INLINE WITH NO ADVERSE EFFECTS. B/S: CLEAR BILATERALLY PRE AND POST TX. SUCTIONED AND RECEIVED SCANT, YELLOW, THIN SECRETIONS. VENT SETTINGS AND ALARMS ARE VERIFIED. BRAKES ARE ON. AMBU BAG AT BEDSIDE.
[2019-01-04 20:00] VITALS: BP 96/57
--- NOTE | 2019-01-04 21:17 | NUR ---
CHECKED GT RESIDUAL 10 ML. DUE MEDS GIVEN. PT TOLERATED WELL.
--- NOTE | 2019-01-04 21:30 | NUR ---
PT WAS CHANGED AND CLEANED. TURNED AND REPOSITIONED. PT AWAKE, NO S/S OF PAIN. DUE MEDS GIVEN, PT TOLERATED WELL.
[2019-01-05] VITALS (7 sets, daily range): BP systolic 72–122; BP diastolic 37–61
--- NOTE | 2019-01-05 | NUR ---
DR. DOUGLAS ORDERED TO HOLD BENADRYL 25 MG DUE AT 0000 HRS. PT SLEEPING.
[2019-01-05] MEDS: METOCLOPRAMIDE 10 MG/10 ML SYRP UDC GT SCH ×5 (00:11→23:59)
[2019-01-05] MEDS: HYDRAGUARD CREAM TP SCH ×2 (00:15→13:51)
[2019-01-05] MEDS ORDERED: NACL 0.9% 1,000 ML IV ONE (00:40)
--- NOTE | 2019-01-05 00:48 | NUR ---
DR. DOUGLAS MADE AWARE OF PT'S LOW BP 72/37, HR 55. RECHECKED BP FEW TIMES, STILL LOW. DR. DOUGLAS CAME IN TO SEE PT AND ORDERED NS BOLUS 1L.
--- NOTE | 2019-01-05 01:30 | NUR ---
NS BOLUS STILL INFUSING. PT OPEN EYES TO LIGHT TOUCH. NO S/S OF RESP DISTRESS.
--- NOTE | 2019-01-05 03:00 | NUR ---
NS BOLUS DONE. CHECKED V/S. BP 86/45, HR 54. DR. DOUGLAS MADE AWARE. NO NEW ORDER AT THIS TIME.
[2019-01-05] MEDS: ACETAMINOPHEN 650 MG/20.3 ML UDC PEG PRN (03:19)
--- NOTE | 2019-01-05 03:20 | NUR ---
PT AWAKE. ABLE TO MAKE NEEDS KNOWN BY LIP READING. PT ASKED FOR PAIN MEDS. TYLENOL 650 MG VIA GT GIVEN. PT TOLERATED WELL.
--- NOTE | 2019-01-05 03:25 | NUR ---
ROUTINE VENT CHECK AND PATIENT ASSESSMENT. CHANGED HME. B/S: CLEAR BILATERALLY. SUCTIONED PATIENT AND RECEIVED SMALL, WHITE, THIN SECRETIONS.
[2019-01-05] MEDS: PIPER/TAZO 3.375GM/D5W PREMIX 50 ML IV SCH ×3 (04:46→20:45)
[2019-01-05] MEDS: levETIRAcetam 100 MG/ML ORASYR GT SCH ×3 (04:47→20:46)
--- NOTE | 2019-01-05 05:12 | NUR ---
ROUTINE VENT CHECK AND PATIENT ASSESSMENT. COMPLETED TRACH CARE WITH NO INCIDENT. CHANGED INNER CANNULA AND GAUZE. STOMA AREA IS INTACT AND HEALTHY WITH LITTLE DRAINAGE. SUCTIONED PATIENT AND RECEIVED SCANT, WHITE, THIN SECRETIONS.
--- NOTE | 2019-01-05 05:15 | NUR ---
CHECKED V/S BP 96/48, HR 66, RR 12, TEMP 97.9, O2 SAT 100%. PT CLEANED AND CHANGED. REPOSITIONED FOR COMFORT. NO S/S OF PAIN. NO S/S OF RESP DISTRESS NOTED.
[2019-01-05] MEDS: diphenhydrAMINE 12.5 MG/5 ML UDC GT SCH ×5 (05:58→23:47)
--- NOTE | 2019-01-05 06:00 | NUR ---
CHECKED BLOOD SUGAR 110. NO INSULIN COVERAGE. DR. DOUGLAS ORDERED TO HOLD BENADRYL DUE AT 0600.
[2019-01-05 06:10] LABS: BASOPHILS % (AUTO) 0.7 % (0.0-2.0); EOSINOPHILS # (AUTO) 0.7 K/uL (0-0.4); EOSINOPHILS % (AUTO) 15.9 % (0.0-4.0); HEMATOCRIT 28.4 % (36-48); HEMOGLOBIN 8.9 g/dL (12.0-16.0); LYMPHOCYTES # (AUTO) 0.8 K/uL (2.5-16.5); LYMPHOCYTES % (AUTO) 18.3 % (20.5-51.1); MEAN CORPUSCULAR HEMOGLOBIN 27 pg (27-31); MEAN CORPUSCULAR HGB CONC 31 g/dL (33-37); MEAN CORPUSCULAR VOLUME 86.1 fL (80-94); MONOCYTES # (AUTO) 0.4 K/uL (0.8-1.0); MONOCYTES % (AUTO) 8.4 % (1.7-9.3); NEUTROPHILS # (AUTO) 2.4 K/uL (1.8-7.7); NEUTROPHILS % (AUTO) 56.7 % (42.2-75.2); PLATELET COUNT (AUTO) 189 K/uL (140-450); RED CELL DISTRIBUTION WIDTH 18.8 % (11.6-13.7); WHITE BLOOD COUNT (AUTO) 4.3 K/uL (4.8-10.8)
[2019-01-05] MEDS: BLOOD GLUCOSE MONITORING 1 DEV DEV FS SCH ×4 (06:18→20:58)
[2019-01-05 06:39] LABS: ANION GAP 14.6 (8-16); CARBON DIOXIDE 26.3 mmol/L (21-32); CREATININE 0.6 mg/dL (0.6-1.3); POTASSIUM 3.9 mmol/L (3.5-5.1)
[2019-01-05 06:44] LABS: MAGNESIUM 1.9 mg/dL (1.8-2.4); PHOSPHORUS 4.6 mg/dL (2.5-4.9)
--- NOTE | 2019-01-05 07:15 | NUR ---
ENDORSED PT TO DAY SHIFT NURSE. PT IN STABLE CONDITION.
--- NOTE | 2019-01-05 07:15 | NUR ---
RECIVED PT ON VENT WITH SETTINGS CHARTED BREATH SOUNDS PRESENT BILAT SXN PT WITH SMALL AMT YELLOW SECS TRACH SITE SECURE AMBU BAG AT BEDSIDE VENT PLUGGED INTO RED OUTLET COMPRESSES IN USE WILL CONTINUE TO MONITOR PT ON VENT
--- NOTE | 2019-01-05 07:16 | NUR ---
RECEIVED BEDSIDE REPORT FROM VENEER MANUFACTURER NURSE. PATIENT IS AWAKE, ALERT AND ORIENTEDX2. NO SIGNS OF DISTRESS ON TRACH TO VENT. SETTINGS ARE FIO2 20 VT 400 RATE 12 FLOW 30 PEEP 5 PMAX 45. PATIENT IS BEDBOUND. PATIENT HAS OSTOMY, IT HAS MODERATE BROWN LOOSE STOOL. WHITMORE IS PATIENT. PATIENT HAS SACRAL WOUNDS. DRESSINGS ARE DRY AND INTACT. FEROZ PICC LINE DOUBLE LUMEN TKO NS AT 5. CLEAN, DRY AND INTACT. R HAND 22G SL CLEAN, DRY AND INTACT. GTUBE INFUSING GLUCERNIA 1.2 AT 30 W H20 FLUSH 150 Q6HRS. CLEAN, DRY AND PATIENT. PATIENT IN WOUND BED, SEIZURE PRECAUTIONS, FALL PRECAUTIONS, ASP PRECAUTIONS. WILL CONTINUE TO MONITOR THE PATIENT. BED IN LOW POSITION
[2019-01-05] MEDS: ALBUTEROL SULFATE/IPRATROPIU 3 ML SOL IH SCH ×3 (07:18→19:50)
[2019-01-05] MEDS: SERTRALINE 50 MG TAB GT SCH (09:38)
[2019-01-05] MEDS: BACLOFEN 10 MG TAB GT SCH ×3 (09:38→16:41)
[2019-01-05] MEDS: ASCORBIC ACID 500 MG TAB GT SCH (09:38)
[2019-01-05] MEDS: LEVOTHYROXINE 0.1 MG TAB GT SCH (09:38)
[2019-01-05] MEDS: TOPIRAMATE 25 MG TAB GT SCH ×2 (09:38→20:46)
[2019-01-05] MEDS: GABAPENTIN 100 MG CAP GT SCH ×3 (09:39→16:41)
[2019-01-05] MEDS: PANTOPRAZOLE 40 MG INJ VIAL IVP SCH (09:39)
[2019-01-05] MEDS: ZINC SULF 220 MG CAP GT SCH (09:39)
[2019-01-05] MEDS: ENOXAPARIN 40 MG/0.4 ML SYR SUBQ SCH (09:40)
--- NOTE | 2019-01-05 09:40 | NUR ---
CHECKED GTUBE PLACEMENT USING SWOOSH.SWOOSH HEARD. NO RESIDUAL. CRUSHED AND ADMINISTERED MEDS. FLUSHED BEFORE AND AFTER. EDUCATED ON MEDS AND SIDE EFFECTS. PATIENT NODDED YES. WILL CONTINUE TO MONITOR THE PATIENT. BED ALARM ON.
--- NOTE | 2019-01-05 10:16 | NUR ---
PATIENT CLEANSED AND TURNED W POWDER CORE TESTER. PATIENT TOLERATED WELL. WILL CONTINUE TO MONITOR
--- NOTE | 2019-01-05 11:41 | NUR ---
RESTING WELL WITHOUT PULMONARY DISTRESS NOTED GOOD CHEST RISE DEEP TRACHEAL SUCTION FOR MODERATE THICK PALE YELLOW SECRETIONS AIRWAY PATENT
--- NOTE | 2019-01-05 12:15 | NUR ---
PATIENT LAYING IN BED. NO SIGNS OF DISTRESS. WILL CONTINUE TO MONITOR THE PATIENT
[2019-01-05] MEDS: Z-GUARD PASTE TP SCH (13:52)
[2019-01-05] MEDS: THERAHONEY GEL 42.5 GM TP SCH (13:52)
[2019-01-05] MEDS: fentaNYL 0.1 MG/HR PATCH TD SCH (14:00)
--- NOTE | 2019-01-05 14:04 | NUR ---
CHECKED GTUBE PLACEMENT USING SWOOSH. RESIDUAL 10. CRUSHED AND ADMINISTERED MEDS. PATIENT TOLERATED WELL. EDUCATED ON SIDE EFFECTS. CALLED PATIENTS , LEFT HIM A MESSAGE THAT THE PATIENT WANTS HIM TO VISIT HER.
--- NOTE | 2019-01-05 14:17 | NUR ---
PATIENT REFUSED FENTANYL PATCH, SHE WANTS DILAUDID. SPOKE W DR REYES HE SAID SHE CAN HAVE DILAUDID BUT NOT FENTANYL WITH DILAUDID. PATIENT DOES NOT WANT FENTANYL ANYMORE
[2019-01-05] MEDS: HYDROmorphone 1 MG/ML AMP IVP PRN (16:16)
--- NOTE | 2019-01-05 16:45 | NUR ---
PATIENTS BALLON ON TRACH DEFLATED, PATIENT TALKED TO ON THE PHONE. AFTER TALKING TO PATIENT WAS CRYING. SHE STATES SHES OK. CHECKED GTUBE PLACEMENT USING SWOOSH. 10ML RESIDUAL. CRUSHED AND ADMINISTERED MEDS. EDUCATED ON SIDE EFFECTS. PATIENT VERBALIZED UNDERSTANDING. FLUSHED BEFORE AND AFTER. NEW FEEDING STARTED GLUCERNA 1.2 30ML/HR W [id number] OF 150 Q6HRS. WILL CONTINUE TO MONITOR THE PATIENT. PATIENT TURNED W THE HELP OF THE REAL ESTATE FIRM MANAGER
[2019-01-05] MEDS ORDERED: LACTULOSE 20 GM/30 ML UDC PO SCH (17:00)
--- NOTE | 2019-01-05 17:20 | NUR ---
CONTINUED TO MONITOR PT ON VENT WITH SETTINGS CHARTED BREATH SOUNDS PRESENT BILAT CLEAR TRACH SITE SECURE AMBU BAG AT BEDSIDE VENT PLUGGED INTO RED OUTLET
[2019-01-05] MEDS: DEXTROSE 5% IV SCH (17:23)
[2019-01-05] MEDS: TOBRAMYCIN IV SCH (17:23)
--- NOTE | 2019-01-05 17:27 | NUR ---
CHECKED GTUBE PLACEMENT USING SWOOSH. SWOOSH HEARD. 5ML RESIDUAL. ADMINISTERED MEDS. FLUSHED BEFORE AND AFTER. PATIENT TOLERATED WELL. HELD BENADRYL HR IN THE 50S AND PATIENT FEELS DROWSY FROM DILAUDID GIVEN EARLY, PATIENT AGREED TO HOLD BENADRYL. WILL CONTINUE TO MONITOR THE PATIENT. BED ALARM ON.
--- NOTE | 2019-01-05 19:07 | NUR ---
GAVE BEDSIDE REPORT TO UNIT LEADER NURSE. PATIENT ENDORSED IN STABLE CONDITION
--- NOTE | 2019-01-05 19:10 | NUR ---
RECEIVED REPORT FORM DAY SHIFT NURSE. PT IS TRACH TO VENT. SETTINGS FIO2 28 VT 400 PEEP 5 RR 12 FLOW 30L/MIN. PT SLEEPING. NO S/S OF PAIN OR SOB. PT IS VENTURA ON MONITOR. PT HAS PICC LINE TO RIGHT UPPER ARM, NS AT 5 ML/HR. . IV TO RIGHT HAND #22G, SALINE LOCK. G-TUBE IN PLACE WITH FEEDING GLUCERNA 1.2 AT 30 ML/HR, H20 FLUSH 150 ML Q6H. PT HAS COLOSTOMY BAG TO LEFT LOWER QUADRANT WITH BROWN LIQUID STOOL. WHITMORE CATH IN PLACE DRAINING CLEAR YELLOW URINE. PT HAS SACRAL PRESSURE ULCER AND LEFT HIP PRESSURE ULCER, DRESSINGS CLEAN DRY AND INTACT. SAFETY, ASPIRATION AND SEIZURE PRECAUTION SIN PLACE.
--- NOTE | 2019-01-05 19:45 | NUR ---
CHECKED V/S BP 100/45, HR 49. DR. DOUGLAS MADE AWARE. NO NEW ORDER AT THIS TIME.
--- NOTE | 2019-01-05 20:00 | NUR ---
Received pt stable on vent support at documented settings, suctioned scant amounts of thin clear yellow secretions, hhn tx given, tolerated well, no resp distress or SOB noted at this time, Shiley 6 trach secured/patent/midline, alarms set and audible, ambu bag at bedside, vent plugged into red outlet, cont pulse ox on, will cont to monitor.
--- NOTE | 2019-01-05 21:00 | NUR ---
CHECKED GT RESIDUAL 20 ML. DUE MEDS GIVEN, PT TOLERATED WELL. O2 SAT 100%, HR 65. BLOOD SUGAR 85.
--- NOTE | 2019-01-05 21:30 | NUR ---
PT OPENS EYES SPONTANEOUSLY. PT REPOSITIONED. PT KEPT CLEAN, DRY AND COMFORTABLE. FALL, SEIZURE AND ASPIRATION PRECAUTIONS IN PLACE.
[2019-01-05] MEDS ORDERED: LORazepam 2 MG/ML VIAL IM/IVP PRN (23:45)
[2019-01-06] VITALS (7 sets, daily range): BP systolic 90–132; BP diastolic 50–75
--- NOTE | 2019-01-06 | NUR ---
GT RESIDUAL 5 ML. DUE MED REGLAN 10 MG GIVEN VIA GT. DR. DOUGLAS ORDERED TO HOLD BENADRYL DUE AT 0000H. PT SLEEPING. NO S/S OF SOB OR PAIN.
[2019-01-06] MEDS: HYDRAGUARD CREAM TP SCH ×2 (00:04→13:34)
--- NOTE | 2019-01-06 02:00 | NUR ---
PT AWAKE. NO S/S OF PAIN. NO S/S OF RESP DISTRESS. PT KEPT COMFORTABLE.
--- NOTE | 2019-01-06 03:30 | NUR ---
PT SLEEPING BUT OPEN EYES WITH LIGHT TOUCH. NO S/S OF PAIN. NO S/S OF RESP DISTRESS. PT TOLERATING FEEDING WELL.
[2019-01-06] MEDS: PIPER/TAZO 3.375GM/D5W PREMIX 50 ML IV SCH ×3 (05:07→20:59)
[2019-01-06] MEDS: levETIRAcetam 100 MG/ML ORASYR GT SCH ×3 (05:08→20:58)
[2019-01-06] MEDS: HYDROmorphone 1 MG/ML AMP IVP PRN ×3 (05:22→21:13)
--- NOTE | 2019-01-06 05:22 | NUR ---
PT CRYING C/O BACK PAIN. REPOSITIONED PT. PER DR. DOUGLAS, IT'S OKAY TO GIVE DILAUDID 1 MG IVP ORDERED FOR SEVERE PAIN. CHECKED GT RESIDUAL 20 ML. DUE MEDS GIVEN. PT TOLERATED WELL. BENADRYL WAS HELD.
[2019-01-06] MEDS: METOCLOPRAMIDE 10 MG/10 ML SYRP UDC GT SCH ×4 (05:27→23:52)
[2019-01-06] MEDS: diphenhydrAMINE 12.5 MG/5 ML UDC GT SCH ×4 (05:50→23:53)
--- NOTE | 2019-01-06 06:40 | NUR ---
PT'S BLOOD SUGAR 86. PT AWAKE. NO S/S OF PAIN. NO S/S OF RESP DISTRESS.
[2019-01-06] MEDS: BLOOD GLUCOSE MONITORING 1 DEV DEV FS SCH ×4 (06:41→20:58)
[2019-01-06 06:42] LABS: BASOPHILS % (AUTO) 0.4 % (0.0-2.0); EOSINOPHILS # (AUTO) 0.7 K/uL (0-0.4); EOSINOPHILS % (AUTO) 11.6 % (0.0-4.0); HEMATOCRIT 30.5 % (36-48); HEMOGLOBIN 9.7 g/dL (12.0-16.0); LYMPHOCYTES # (AUTO) 0.9 K/uL (2.5-16.5); LYMPHOCYTES % (AUTO) 14.7 % (20.5-51.1); MEAN CORPUSCULAR HEMOGLOBIN 27 pg (27-31); MEAN CORPUSCULAR HGB CONC 32 g/dL (33-37); MEAN CORPUSCULAR VOLUME 85.8 fL (80-94); MONOCYTES # (AUTO) 0.4 K/uL (0.8-1.0); NEUTROPHILS % (AUTO) 67.3 % (42.2-75.2); PLATELET COUNT (AUTO) 238 K/uL (140-450); RED BLOOD CELL COUNT(AUTO) 3.55 MIL/uL (4.20-5.40)
[2019-01-06 07:00] LABS: CARBON DIOXIDE 25.9 mmol/L (21-32); CREATININE 0.6 mg/dL (0.6-1.3); POTASSIUM 3.9 mmol/L (3.5-5.1)
--- NOTE | 2019-01-06 07:00 | NUR ---
RECIVED PT ON VENT WITH SETTINGS CHARTED BREATH SOUNDS PRESENT BILAT CLEAR SXN PT WITH SMALL AMT OFF WHITE SECS TRACH SITE SECURE ANBU BAG AT BEDSIDE VENT PLUGGED INTO RED OUTLET DEFLATED CUFF FOR PT TO SPEAK PT UNABLE TO AT THIS TIME RN AT BEDSIDE
[2019-01-06] MEDS: ALBUTEROL SULFATE/IPRATROPIU 3 ML SOL IH SCH ×3 (07:07→21:43)
[2019-01-06 07:08] LABS: MAGNESIUM 2.2 mg/dL (1.8-2.4); PHOSPHORUS 4.8 mg/dL (2.5-4.9)
--- NOTE | 2019-01-06 07:10 | NUR ---
ENDORSED PT TO DAY SHIFT NURSE. PT IN STABLE CONDITION.
--- NOTE | 2019-01-06 07:15 | NUR ---
RECEIVED BEDSIDE REPORT FROM CHIP WASHER RN. PT LYING IN BED, AOX3. RESPIRATIONS EVEN AND UNLABORED. TRACH TO VENT. ON TELE MONITOR. ACTIVE BOWEL SOUNDS. COLOSTOMY IN PLACE, DRAINING TO GRAVITY TO WHITMORE BAG. RT UA PICC PATENT AND ASYMPTOMATIC, INFUSING IVF PER MD ORDERS. SKIN [id number] WOUND ASSESSMENT. BEDBOUND. ALL SAFETY PRECAUTIONS IN PLACE, WILL CONTINUE TO MONITOR.
[2019-01-06] MEDS: ASCORBIC ACID 500 MG TAB GT SCH (09:29)
[2019-01-06] MEDS: LEVOTHYROXINE 0.1 MG TAB GT SCH (09:29)
[2019-01-06] MEDS: GABAPENTIN 100 MG CAP GT SCH ×3 (09:30→17:39)
[2019-01-06] MEDS: BACLOFEN 10 MG TAB GT SCH ×3 (09:30→17:39)
[2019-01-06] MEDS: LOSARTAN 25 MG TAB PO SCH (09:30)
[2019-01-06] MEDS: TOPIRAMATE 25 MG TAB GT SCH ×2 (09:30→20:59)
[2019-01-06] MEDS: PANTOPRAZOLE 40 MG INJ VIAL IVP SCH (09:31)
[2019-01-06] MEDS: ZINC SULF 220 MG CAP GT SCH (09:31)
[2019-01-06] MEDS: SERTRALINE 50 MG TAB GT SCH (09:32)
--- NOTE | 2019-01-06 09:54 | NUR ---
ADMINISTERED SCHEDULED MEDICATIONS. PATIENT REFUSED TO BE REPOSITIONED AND REFUSED BED BATH DESPITE ENCOURAGEMENT. Addendum: 01/06/19 at 0955 by Iliana Machado Meng, RN EXPLAINED RISKS OF WORSENING SACRAL WOUND- PT CONTINUES TO REFUSE.
[2019-01-06] MEDS: ENOXAPARIN 40 MG/0.4 ML SYR SUBQ SCH (09:56)
[2019-01-06] MEDS ORDERED: LACTULOSE 20 GM/30 ML UDC PO SCH (13:00)
--- NOTE | 2019-01-06 13:37 | NUR ---
GT FEEDING ADVANCED TO 40 ML/HR. GASTRIC RESIDUAL NOW LESS THAN 20 ML.
[2019-01-06] MEDS: Z-GUARD PASTE TP SCH (13:45)
[2019-01-06] MEDS: THERAHONEY GEL 42.5 GM TP SCH (13:45)
--- NOTE | 2019-01-06 14:32 | NUR ---
01/06/19 FOLLOW UP COMPLETED 1. RECOMMEND GLUCERNA 1.2 AT 50 ML/HR -THIS WILL PROVIDE A VOLUME OF 1200 ML, 1440 KCAL, 72 GM OF PROTEIN. IT MEETS 100% OF PATIENT�S ENERGY NEEDS AND 99% OF PROTEIN NEEDS. 2. RECOMMEND FWF [address] TO FOLLOW-UP 2-3 DAYS, HIGH RISK VICTOR MANUEL AYALA, RONY
--- NOTE | 2019-01-06 14:51 | NUR ---
HHN RX GIVEN 1330
--- NOTE | 2019-01-06 15:03 | NUR ---
PT RESTING IN BED, RESPIRATIONS EVEN AND UNLABORED. WILL CONTINUE TO MONITOR.
--- NOTE | 2019-01-06 17:23 | NUR ---
ST ELEVATION ON TELE. PATIENT DENIES CP, SOB, DIZZINESS. DOES NOT FEEL DIFFERENT FROM EARLIER TODAY. VITALS STABLE. 126/67, HR 67, SPO2 98%. NOTIFIED DR. SOLER.
--- NOTE | 2019-01-06 17:28 | NUR ---
GT FEEDING ADVANCED TO 50 ML/HOUR (GOAL). GASTRIC RESIDUAL LESS THAN 20 ML.
[2019-01-06] MEDS: TOBRAMYCIN IV SCH (17:39)
[2019-01-06] MEDS: DEXTROSE 5% IV SCH (17:39)
--- NOTE | 2019-01-06 18:11 | NUR ---
continued to monitor pt on vent breath sounds present bilat trach site secure ambu bag at bedside vent plugged into red outlet
--- NOTE | 2019-01-06 19:31 | NUR ---
ENDORSED POC TO PARTS ANALYST RN. PT IN STABLE CONDITION.
--- NOTE | 2019-01-06 19:35 | NUR ---
RECEIVED FROM AM RN IN BED AWAKE IN VENT. ABLE TO MOUTH WORDS FOR SIMPLE NEEDS. GT FEEDING , HOB UP 30 DEGREES FOR ASPIRATION PRECAUTIONS. NO REPORTED VOMITING IN AM SHIFT. WHITMORE CATHETER IN PLACE AND BM TO WHITMORE BAG. FEROZ PICC LINE DOUBLE LUMEN IN PLACE. BED ALARM ON. NEEDS WILL BE ANTICIPATED AND WILL BE MET. WILL BE TURNED Q 2H. TELEMETRY MONITORING. HEART RATE IN LUNCHROOM SUPERVISOR SHOWS 70 NSR WITH BBB.
--- NOTE | 2019-01-06 19:58 | NUR ---
SPOUSE IN HERE TO VISIT PT. NO COMPLAINTS DONE. PT. BEEN ASKING ALL THE TIME ABOUT SPOUSE PER AM RN. KEPT BEING REMINDED THAT DAUGHTER SAID SHE WILL BE HERE LATER AND DAUGHTER AWARE THAT SHE IS LOOKING FOR SPOUSE ALL THE TIME. PHONE NUMBER OF SPOUSE IS THE DAUGHTER'S NUMBER.
--- NOTE | 2019-01-06 20:01 | NUR ---
RESIDENT AWARE OF MRSA WOUND REPORTED BY LAB. AT THIS TIME TO ME. NO FURTHER ORDERS GIVEN. CHARGE NURSE MADE AWARE OF RESULT .
--- NOTE | 2019-01-06 21:15 | NUR ---
Armando IGNACIO /BENCH LATHE OPERATOR IN TO SEE PT. ABLE TO MOUTH WORDS. REQUESTED FOR PAIN RELIEVER DILAUDID IVP . MEDICATED REQUESTED.
--- NOTE | 2019-01-06 21:32 | NUR ---
PT. STILL AWAKE AT THIS TIME . ENCOURAGED TO SLEEP AND REMINDED HER THAT SPOUSE WILL BE BACK THE DAY AFTER AND THAT DAUGHTER WILL BE HERE TOMORROW. PT. ABLE TO NOD HEAD FOR YES OR OK.
--- NOTE | 2019-01-06 23:09 | NUR ---
PT. AWAKE AT THIS TIME. ENCOURAGED TO GO BACK TO SLEEP. NODDED HEAD. KEPT CLEAN, DRY AND COMFORTABLE. ON SPECIAL WOUND BED. NO COMPLAINTS DONE AT THIS TIME. ON TELEMETRY MONITORING.
--- NOTE | 2019-01-06 23:50 | NUR ---
PT. AWAKE AT THIS TIME. NEW GT FEEDING OF GLUCERNA STARTED . NO COMPLAINTS DONE. DENIES PAIN AT THIS TIME.
--- NOTE | 2019-01-07 00:04 | NUR ---
BENADRYL PER GT NOT ADMINISTERED RT BLOOD PRESSURE AT THIS TIME IS 90/50. EXPLAINED TO PT. THAT I THINK WE SHOULD NOT ADMINISTER IT RT BP. PT. AGREED TO NOT TAKE IT RT HAD DILAUDID IVP EARLIER IN THE SHIFT. TELEMETRY MONITORING. AWAKE AND ALERT. WILL TURN TO SIDES Q2H. WHITMORE CATHETER DRAINING WELL WITH URINE AND OSTOMY TO BAG DRAINING WELL WITH SOFT STOOL.
[2019-01-07] MEDS: HYDRAGUARD CREAM TP SCH ×2 (01:00→12:28)
--- NOTE | 2019-01-07 02:35 | NUR ---
SUCTIONED PT. MINIMAL MUCUS WHITISH IN COLOR . TURNED TO SIDES Q 2H. TOTAL CARE. DENIES PAIN. RESPIRATORY THERAPIST IN HERE TO ATTEND TO PT.
[2019-01-07 03:50] VITALS: BP 94/53
--- NOTE | 2019-01-07 04:06 | NUR ---
PT. SUCTIONED. ABLE TO SUCTION SCANT WHITISH MUCUS. NO COMPLAINTS OF ANY PAIN AT THIS TIME. TURNED Q 2H. TOTAL CARE.
[2019-01-07] MEDS: METOCLOPRAMIDE 10 MG/10 ML SYRP UDC GT SCH ×4 (04:16→23:55)
[2019-01-07] MEDS: levETIRAcetam 100 MG/ML ORASYR GT SCH ×3 (04:16→20:27)
[2019-01-07] MEDS: diphenhydrAMINE 12.5 MG/5 ML UDC GT SCH ×4 (04:17→23:55)
[2019-01-07] MEDS: PIPER/TAZO 3.375GM/D5W PREMIX 50 ML IV SCH ×3 (04:17→20:28)
--- NOTE | 2019-01-07 05:01 | NUR ---
PT TRACH SECURE AND INTACT. VENT PLUGGED INTO RED OUTLET, AMBU BAG AT BEDSIDE. PT AWAKE AND ALERT. NO SIGN OF RESP. DISTRESS NOTED AT THIS TIME. SXN SMALL WHITE CLEAR. PT CECILIO TX WELL WITH NO ADVERSE REACTION. VENT ON CURRENT SETTINGS.
[2019-01-07] MEDS: BLOOD GLUCOSE MONITORING 1 DEV DEV FS SCH ×4 (05:34→20:28)
--- NOTE | 2019-01-07 06:16 | NUR ---
PT. AM PERSONAL HYGIENE RENDERED BY VP PROJECT AND ME. TOTAL CARE. NEEDS ANTICIPATED AND MET. NO GT RESIDUALS THIS SHIFT. ISOLATION PRECAUTIONS OBSERVED. ABLE TO MOUTH WORDS. TELEMETRY MONITORING. TURNED Q 2H.
--- NOTE | 2019-01-07 06:19 | NUR ---
NO COMPLAINTS DONE. NEEDS ANTICIPATED AND MET. WILL ENDORSE TO THE NEXT RN FOR CONTINUITY OF CARE.
[2019-01-07 06:41] LABS: CARBON DIOXIDE 24.9 mmol/L (21-32); CREATININE 0.7 mg/dL (0.6-1.3); POTASSIUM 3.9 mmol/L (3.5-5.1)
[2019-01-07 06:44] LABS: MAGNESIUM 2.1 mg/dL (1.8-2.4); PHOSPHORUS 4.6 mg/dL (2.5-4.9)
[2019-01-07 06:59] LABS: BASOPHILS % (AUTO) 0.4 % (0.0-2.0); EOSINOPHILS # (AUTO) 0.7 K/uL (0-0.4); EOSINOPHILS % (AUTO) 12.1 % (0.0-4.0); HEMATOCRIT 30.1 % (36-48); HEMOGLOBIN 9.4 g/dL (12.0-16.0); LYMPHOCYTES # (AUTO) 0.9 K/uL (2.5-16.5); LYMPHOCYTES % (AUTO) 14.7 % (20.5-51.1); MEAN CORPUSCULAR HEMOGLOBIN 27 pg (27-31); MEAN CORPUSCULAR HGB CONC 31 g/dL (33-37); MEAN CORPUSCULAR VOLUME 86.5 fL (80-94); MONOCYTES # (AUTO) 0.4 K/uL (0.8-1.0); MONOCYTES % (AUTO) 6.3 % (1.7-9.3); NEUTROPHILS # (AUTO) 4.1 K/uL (1.8-7.7); NEUTROPHILS % (AUTO) 66.5 % (42.2-75.2); PLATELET COUNT (AUTO) 228 K/uL (140-450); RED BLOOD CELL COUNT(AUTO) 3.48 MIL/uL (4.20-5.40); RED CELL DISTRIBUTION WIDTH 19.2 % (11.6-13.7); WHITE BLOOD COUNT (AUTO) 6.2 K/uL (4.8-10.8)
--- NOTE | 2019-01-07 07:15 | NUR ---
RECEIVED REPORT FROM ANALYSIS MANAGER NURSE. PATIENT. LYING DOWN IN BED SLEEPING, AROUSABLE BY VOICE. NO DISTRESS NOTED. AAOX2, TRACH TO VENT, ABLE TO MOUTH WORDS. SKIN COLOR APPROPRIATE TO ETHNICITY, WARM TO TOUCH. HAS LEFT HIP AND SCARAL PRESSURE ULCERS, DRESSING IS DRY AND INTACT. RIGHT UPPER ARM PICC LINE NOTED, INTACT, PATENT, ON TKO. GTUBE IN PLACE ON CONTINUOUS FEEDING PER MD ORDERS. ILLEOSTOMY IN PLACE, DRAINING YELLOWISH FLUID. REVIEWED PLAN OF CARE WITH PATIENT. PATIENT MOUTHED UNDERSTANDING. SAFETY MEASURES IN PLACE, CALL LIGHT WITHIN REACH. WILL CONTINUE TO MONITOR.
[2019-01-07 08:00] VITALS: BP 114/64
[2019-01-07] MEDS: ALBUTEROL SULFATE/IPRATROPIU 3 ML SOL IH SCH ×3 (08:10→19:51)
--- NOTE | 2019-01-07 08:10 | NUR ---
RECEIVED ON A [employer] CARESCAPE R860 VENTILATOR WITH COMPRESSOR ON PLUGGED INTO RED OUTLET TOLERATING WELL WITHOUT ADVERSE REACTIONS NOTED TO A CHAPARRITA DCT #6 AIRWAY SECURED WITH A TAWANDA TRACH TIE MASIMO CONTINUOS PULSE OXIMETER AT BEDSIDE ON AND FUNCTIONING WELL LOW SATURATION ALARM SET AT 92% AMBU BAG NOTED AT BEDSIDE AWAKE AND ALERT BREATH SOUNDS CLEAR ,APEX TO MID WITH RALES AT BILATERAL BASES DEEP TRACHEAL SUCTION FOR LARGE THICK YELLOW SECRETIONS AIRWAY PATENT
[2019-01-07] MEDS: PANTOPRAZOLE 40 MG INJ VIAL IVP SCH (08:25)
[2019-01-07] MEDS: ASCORBIC ACID 500 MG TAB GT SCH (08:25)
[2019-01-07] MEDS: LEVOTHYROXINE 0.1 MG TAB GT SCH (08:26)
[2019-01-07] MEDS: BACLOFEN 10 MG TAB GT SCH ×3 (08:26→17:20)
[2019-01-07] MEDS: ZINC SULF 220 MG CAP GT SCH (08:26)
[2019-01-07] MEDS: SERTRALINE 50 MG TAB GT SCH (08:26)
[2019-01-07] MEDS: traMADol 50 MG TAB GT PRN ×2 (08:26→20:42)
[2019-01-07] MEDS: TOPIRAMATE 25 MG TAB GT SCH ×2 (08:27→20:27)
[2019-01-07] MEDS: ENOXAPARIN 40 MG/0.4 ML SYR SUBQ SCH (08:27)
[2019-01-07] MEDS: LOSARTAN 25 MG TAB PO SCH (08:28)
--- NOTE | 2019-01-07 08:48 | NUR ---
PATIENT LYING DOWN IN BED. NO DISTRESS NOTED. COMPLAINS OF GENERALIZED MUSCLE SPASM PAIN, ULTRAM GIVEN. OTHER SCHEDULED MEDICATIONS DUE GIVEN. RESIDUALS CHECKED AT 20 ML. WILL CONTINUE TO MONITOR.
--- NOTE | 2019-01-07 09:57 | NUR ---
RESTING COMFORTABLY NO EVIDENCE OF PULMONARY DISTRESS NOTED GOOD CHEST RISE AND AERATION THROUGHOUT LUNG DAVID AIRWAY PATENT
[2019-01-07] MEDS: GABAPENTIN 100 MG CAP GT SCH ×3 (11:22→17:20)
--- NOTE | 2019-01-07 11:30 | NUR ---
NO DISTRESS NOTED GOOD CHEST RISE AIRWAY PATENT
--- NOTE | 2019-01-07 11:34 | NUR ---
ASSISTED SKIP OPERATOR IN CLEANING AND REPOSITIONING PATIENT. WOUND DRESSING CHANGED PER MD ORDERS. WHITMORE CATHETER LEAKING, NEW WHITMORE CATHETER [address] SOLER ORDERED. WILL CONTINUE TO MONITOR.
[2019-01-07 12:00] VITALS: BP 116/64
[2019-01-07] MEDS: Z-GUARD PASTE TP SCH (12:29)
[2019-01-07] MEDS: THERAHONEY GEL 42.5 GM TP SCH (12:29)
--- NOTE | 2019-01-07 12:38 | NUR ---
PATIENT LYING DOWN IN BED WATCHING TV. NO DISTRESS NOTED. CONDITION UNCHANGED. WILL CONTINUE TO MONITOR.
--- NOTE | 2019-01-07 13:36 | NUR ---
FAXED [facility] TO [facility].
--- NOTE | 2019-01-07 14:00 | NUR ---
PATIENT LYING DOWN IN BED SLEEPING, AROUSABLE BY VOICE. NO DISTRESS NOTED. CONDITION UNCHANGED. WILL CONTINUE TO MONITOR.
[2019-01-07] MEDS: HYDROmorphone 1 MG/ML AMP IVP PRN (14:34)
--- NOTE | 2019-01-07 14:50 | NUR ---
PATIENT COMPLAINS OF SEVERE GENERALIZED BODY MUSCLE PAIN, DILAUDID GIVEN PER MD ORDERS. WILL CONTINUE TO MONITOR.
[2019-01-07 16:00] VITALS: BP 100/57
--- NOTE | 2019-01-07 16:05 | NUR ---
NO SOB NOTED GOOD CHEST RISE
[2019-01-07] MEDS: DEXTROSE 5% IV SCH (17:24)
[2019-01-07] MEDS: TOBRAMYCIN IV SCH (17:24)
--- NOTE | 2019-01-07 17:32 | NUR ---
PATIENT LYING DOWN IN BED COMFORTABLY. NO DISTRESS NOTED. CONDITION UNCHANGED. DENIES ANY PAIN AT THIS TIME. SCHEDULED MEDICATIONS DUE GIVEN. WILL CONTINUE TO MONITOR.
--- NOTE | 2019-01-07 17:36 | NUR ---
STABLE NO APPARENT DISTRESS NOTED GOOD CHEST RISE AND AERATION THROUGHOUT BILATERAL PULMONARY DAVID AIRWAY PATENT
--- NOTE | 2019-01-07 19:26 | NUR ---
GAVE REPORT TO MANAGER APPLICATION NURSE FOR CONTINUITY OF CARE. PATIENT IN STABLE CONDITION.
--- NOTE | 2019-01-07 19:34 | NUR ---
RECEIVED FROM AM RN IN BED AWAKE AND ALERT. NOTED ABLE TO MOVE LEFT ARM. MOUTHS WORDS TO CONVEY SIMPLE NEEDS. BED ALARM ON AND ON WOUND CARE BED. WHITMORE CATHETER IN PLACE AND DRAINING WELL WITH YELLOW URINE. WITH OSTOMY TO BAG . PICC LINE DOUBLE LUMEN INTACT . WITH GT FEEDING AT 50 ML PER HOUR. NO RESIDUAL NOTED AT THIS TIME. CARE PLANS FOR THE NIGHT EXPLAINED TO HER. NEEDS WILL BE ANTICIPATED AND MET. TELEMETRY MONITORING.
[2019-01-07 20:05] VITALS: BP 100/58
--- NOTE | 2019-01-07 20:07 | NUR ---
RESPIRATORY THERAPIST IN HERE TO ATTEND TO PT. BREATHING TREATMENT ON GOING.
--- NOTE | 2019-01-07 21:57 | NUR ---
PT. TURNED TO SIDES BY CNAS. PILLOW SUPPORT TO PRESSURE AREAS. HEELS LIFTED FROM BED TO PREVENT PRESSURE WITH PILLOWS. WHITMORE CATHETER DRAINING WELL WITH URINE. NEEDS ANTICIPATED AND MET. TELEMETRY MONITORING.
[2019-01-08] VITALS (7 sets, daily range): BP systolic 90–102; BP diastolic 55–65
--- NOTE | 2019-01-08 00:06 | NUR ---
PT. TURNED TO SIDES BY CNAS. NEEDS ANTICIPATED. HOB UP 30 DEGREES FOR ASPIRATION PRECAUTION. NO VOMITING NOTED. GT RESIDUAL 10 ML. NO COMPLAINTS DONE AT THIS TIME. TELEMETRY MONITORING.
[2019-01-08] MEDS: HYDRAGUARD CREAM TP SCH ×2 (01:19→13:59)
--- NOTE | 2019-01-08 02:26 | NUR ---
PT. TURNED TO SIDES BY CNAS. PT. WAKES UP EASILY WHEN TOUCHED. MOUTHS WORDS FOR SIMPLE NEEDS. SUCTIONED BY RESPIRATORY THERAPIST AT THIS TIME. RESIDUAL CHECK 10 ML. HOB UP 30 DEGREES FOR ASPIRATION PRECAUTIONS.
--- NOTE | 2019-01-08 04:42 | NUR ---
PT. TURNED BY CNAS. AM PERSONAL HYGIENE RENDERED. RESPIRATORY THERAPIST CHECKED ON PT. SUCTIONED SCANT WHITISH MUCUS. DENIES PAIN AT THIS TIME. TELEMETRY MONITORING. HOB UP FOR ASPIRATION PRECAUTION RT WITH GT FEEDING. ON SPECIAL BED.
[2019-01-08] MEDS: PIPER/TAZO 3.375GM/D5W PREMIX 50 ML IV SCH (04:50)
[2019-01-08] MEDS: levETIRAcetam 100 MG/ML ORASYR GT SCH ×3 (04:51→21:00)
[2019-01-08] MEDS: METOCLOPRAMIDE 10 MG/10 ML SYRP UDC GT SCH ×3 (05:12→17:18)
[2019-01-08] MEDS: diphenhydrAMINE 12.5 MG/5 ML UDC GT SCH ×3 (05:12→17:18)
[2019-01-08] MEDS: BLOOD GLUCOSE MONITORING 1 DEV DEV FS SCH ×4 (05:12→20:30)
--- NOTE | 2019-01-08 06:25 | NUR ---
PT. SLEEPING AT THIS TIME. WAKES UP EVERY NOW AND THEN TO REQUEST THAT HER LEGS BE REPOSITIONED. KEPT CLEAN, DRY AND COMFORTABLE. DENIES PAIN AT THIS TIME. HOB UP 30 DEGREES FOR ASPIRATION PRECAUTION. NO VOMITING THIS SHIFT NOTED. WILL ENDORSE TO THE AM RN FOR CONTINUITY OF CARE.
--- NOTE | 2019-01-08 07:15 | NUR ---
RECEIVED PT REPORT FROM ENVIRONMENTAL MARKETING REPRESENTATIVE NURSE AT BEDSIDE. PT IS ASLEEP, NO S/S OF ACUTE DISTRESS OR SOB NOTED AT THIS TIME. CONTACT ISOLATION IS IN PLACE. PT IS TRACH TO VENT, SATING 100%. G-TUBE IN PLACE, INFUSING GLUCERNA 1.2 50 ML/HR, WITH WATER FLUSHES 160 ML Q6H. COLOSTOMY BAG PRESENT DRAINING LIQUID BROWN STOOL, WHITMORE CATHETER IS INSERTED DRAINING CLEAR YELLOW URINE. PT HAS PRESSURE WOUNDS ON THE SACRUM AND L HIP. DOUBLE LUMEN PICC LINE NOTED ON RUE. PT IS BEDBOUND AND CONTRACTED. CALL LIGHT IS WITHIN REACH. WILL CONTINUE TO MONITOR.
[2019-01-08] MEDS: ALBUTEROL SULFATE/IPRATROPIU 3 ML SOL IH SCH ×3 (07:51→19:40)
--- NOTE | 2019-01-08 07:51 | NUR ---
RECEIVED ON [employer] R860 VENTILATOR WITH COMPRESSOR ON AND FUNCTIONING WELL PLUGGED IN RED OUTLET TOLERATING WELL WITHOUT ADVERSE REACTIONS NOTED TO A CHAPARRITA DCT #6 AIRWAY SECURED WITH A TAWANDA TRACH TIE CUFF PRESSURE CHECKED NOTED AMBU BAG NOTED AT HOB STABLE NO DISTRESS NOTED GOOD CHEST RISE DEEP TRACHEAL SUCTION FOR YELLOW SECRETIONS AIRWAY PATENT
[2019-01-08] MEDS: PANTOPRAZOLE 40 MG INJ VIAL IVP SCH (08:58)
[2019-01-08] MEDS: ZINC SULF 220 MG CAP GT SCH (08:59)
[2019-01-08] MEDS: GABAPENTIN 100 MG CAP GT SCH ×3 (08:59→17:18)
[2019-01-08] MEDS: TOPIRAMATE 25 MG TAB GT SCH ×2 (08:59→21:00)
[2019-01-08] MEDS: SERTRALINE 50 MG TAB GT SCH (08:59)
[2019-01-08] MEDS: ASCORBIC ACID 500 MG TAB GT SCH (09:00)
[2019-01-08] MEDS: LEVOTHYROXINE 0.1 MG TAB GT SCH (09:00)
[2019-01-08] MEDS: BACLOFEN 10 MG TAB GT SCH ×3 (09:00→17:19)
[2019-01-08] MEDS: LOSARTAN 25 MG TAB PO SCH (09:07)
[2019-01-08] MEDS: ENOXAPARIN 40 MG/0.4 ML SYR SUBQ SCH (09:08)
[2019-01-08] MEDS: traMADol 50 MG TAB GT PRN ×2 (09:40→17:18)
--- NOTE | 2019-01-08 09:49 | NUR ---
STABLE GOOD CHEST RISE AIRWAY PATENT SPOUSE AT BEDSIDE
--- NOTE | 2019-01-08 10:00 | NUR ---
PT'S VISITING AT BEDSIDE. HE CLEANSED AND APPLIED LOTION TO HER FACE. AM MEDS ADMINISTERED, PT TOLERATED WELL.
--- NOTE | 2019-01-08 10:30 | NUR ---
PT CLEANED AND REPOSITIONED, LINENS CHANGED. NEW FOAM DRESSINGS AND THERAHONEY APPLIED TO PRESSURE WOUNDS. PT STATES THAT SHE IS UNCOMFORTABLE LYING ON HER RIGHT SIDE AND WANTS TO REPOSITION BACK TO THE LEFT. PT WAS EDUCATED THAT SHE NEEDS TO BE REPOSITIONED FROM SIDE TO SIDE Q2H TO PREVENT MORE PRESSURE WOUNDS.
[2019-01-08] MEDS: THERAHONEY GEL 42.5 GM TP SCH (11:14)
[2019-01-08] MEDS: Z-GUARD PASTE TP SCH (11:15)
[2019-01-08] MEDS: HYDROmorphone 1 MG/ML AMP IVP PRN ×2 (11:25→21:05)
[2019-01-08 12:24] LABS: ANION GAP 12.6 (8-16); CARBON DIOXIDE 24.6 mmol/L (21-32); CREATININE 0.7 mg/dL (0.6-1.3); POTASSIUM 4.2 mmol/L (3.5-5.1)
--- NOTE | 2019-01-08 14:53 | NUR ---
NO RESTING COMFORTABLY NO PULMONARY DISTRESS NOTED GOOD CHEST RISE DEEP TRACHEAL SUCTION FOR SMALL THIN YELLOW SECRETIONS AIRWAY PATENT
--- NOTE | 2019-01-08 16:39 | NUR ---
01/08/19 RD FOLLOW UP COMPLETED PLEASE REFER TO NUTRITION PROGRESS NOTE UNDER CARE ACTIVITY FOR ESTIMATED NUTRITION NEEDS. RD RECOMMENDATIONS: 1. RECOMMEND CONTINUE WITH GLUCERNA 1.2 AT 50ML/HR, FWF:150ML Q 6HR. THIS PROVIDES 1440 KCAL, 72G PROTEIN AND 1666ML TOTAL FLUID DAILY. THIS MEETS 98% CALORIC NEEDS AND 99% PROTEIN NEEDS. 2. RECOMMEND CONTINUE WITH THERAGRAN, VITAMIN C ANC ZINC SULFATE FOR WOUND HEALING. 3.RD WILL F/U 2-3 DAYS; HIGH RISK. DONA TIPTON RD
--- NOTE | 2019-01-08 17:23 | NUR ---
VERBALLY RESPONSIVE NO RESPIRATORY DISTRESS NOTED GOOD CHEST RISE DEEP TRACHEAL SUCTION FOR SMALL THICK YELLOW SECRETIONS AIRWAY PATENT
[2019-01-08] MEDS: DEXTROSE 5% IV SCH (17:30)
[2019-01-08] MEDS: TOBRAMYCIN IV SCH (17:30)
--- NOTE | 2019-01-08 17:55 | NUR ---
PT REPOSITIONED IN BED. PT C/O HER SACRAL SORES HURTING, SHE WAS JUST MEDICATED WITH TRAMADOL. PT IS AWARE THAT SHE NEEDS TO BE TURNED EVERY 2 HOURS TO AVOID PRESSURE ON HER SORES, HOWEVER, SHE IS RELUCTANT TO TURN BECAUSE IT IS VERY UNCOMFORTABLE FOR HER.
--- NOTE | 2019-01-08 18:42 | NUR ---
PER DR. VALLEJO, PT WILL RECEIVE A SWALLOW EVAL ON THURSDAY BY A SPEECH THERAPIST. IF NO ISSUES WITH SWALLOWING AND NO S/S OF ASPIRATION, PT MAY START EATING A PUREE DIET.
--- NOTE | 2019-01-08 19:20 | NUR ---
PT ENDORSED TO ULTRASONIC SEAMING MACHINE OPERATOR NURSE IN STABLE CONDITION.
--- NOTE | 2019-01-08 19:30 | NUR ---
BEDSIDE REPORT RECEIVED FROM JAY OCAMPO, PATIENT TRACH TO VENT, FIO2 24, VT 400, PEEP 5, O2SAT 100% RR 18 BP 94/65 HR 63, SR ON TELE, LUNG SOUNDS DIMINISHED IN LOWER LOBES. AAOX0, OPENS EYES TO PAIN. RIGHT UPPER ARM PICC, DOUBLE LUMEN INFUSING NS AT 5 ML/HR, RIGHT HAND IV, 22G, SL. LEFT LOWER QUAD G TUBE IN PLACE INFUSING GLUCERNA 1.2 AT 50 ML/HR WITH H20 FLUSH Q6H WITH 150 ML, 5 ML RESIDUALS NOTED. LEFT COLOSTOMY BAG IN PLACE, LIGHT BROWN STOOL NOTED. WHITMORE CATH IN PLACE, DRAINING YELLOW URINE 800 ML. ON WOUND BED, PRESSURE ULCER NOTED FALL AND SEIZURE PRECAUTIONS IN PLACE, WILL CONTINUE TO MONITOR.
--- NOTE | 2019-01-08 21:05 | NUR ---
DUE MEDICATIONS GIVEN PATIENT TOLERATED WELL, GAVE DILAUDID FOR PAIN. CHANGED TUBE FEEDING, 5 RESIDUES NOTED INFUSING GLUCERNA AT 50 ML/HR
--- NOTE | 2019-01-08 23:30 | NUR ---
PATIENT REPOSITIONED FOR COMFORT WILL CONTINUE TO MONITOR
[2019-01-09] VITALS: BP 95/60
[2019-01-09] MEDS: HYDROmorphone 1 MG/ML AMP IVP PRN ×4 (00:52→19:01)
[2019-01-09] MEDS: diphenhydrAMINE 12.5 MG/5 ML UDC GT SCH ×4 (00:52→17:22)
--- NOTE | 2019-01-09 00:52 | NUR ---
PATIENT C/O PAIN GAVE DILAUDID
[2019-01-09] MEDS: HYDRAGUARD CREAM TP SCH ×2 (00:53→13:02)
[2019-01-09] MEDS: METOCLOPRAMIDE 10 MG/10 ML SYRP UDC GT SCH ×4 (00:53→17:22)
--- NOTE | 2019-01-09 03:00 | NUR ---
PATIENT RESTING IN BED
[2019-01-09 04:00] VITALS: BP 92/50
--- NOTE | 2019-01-09 05:00 | NUR ---
PATIENT CRYING IN PAIN C/O PAIN IN BACK MEDICATED WITH DILAUDID BP 92/50 HR 58
[2019-01-09] MEDS: levETIRAcetam 100 MG/ML ORASYR GT SCH ×3 (05:13→20:40)
--- NOTE | 2019-01-09 06:26 | NUR ---
LABS DRAWN FROM [facility]
[2019-01-09] MEDS: BLOOD GLUCOSE MONITORING 1 DEV DEV FS SCH (06:38)
[2019-01-09] MEDS: ALBUTEROL SULFATE/IPRATROPIU 3 ML SOL IH SCH ×3 (07:05→20:03)
--- NOTE | 2019-01-09 07:05 | NUR ---
RECEIVED ON A [employer] CARESCAPE R860 VENTILATOR WITH COMPRESSOR ON AND FUNCTIONING WELL PLUGGED INTO RED OUTLET TOLERATING WELL WITHOUT ADVERSE REACTIONS NOTED TO A CHAPARRITA DCT #6 AIRWAY SECURED WITH A TAWANDA TRACH TIE CUFF PRESSURE CHECKED NOTED FLAVIOO RADICAL-7 CONTINUOS PULSE OXIMETER AT [facility] ON AND FUNCTIONING WELL LOW SATURATION ALARM SET AT 92% AMBU BAG NOTED AT HOB LOC AWAKE AND ALERT NO DISTRESS NOTED GOOD CHEST RISE DEEP TRACHEAL SUCTION FOR SMALL THICK YELLOW SECRETIONS AIRWAY PATENT
--- NOTE | 2019-01-09 07:15 | NUR ---
RECEIVED PT REPORT FROM INSULATION PACKER NURSE, PT IS AWAKE, NO S/S OF ACUTE DISTRESS OR SOB NOTED AT THIS TIME. PT IS TRACH TO VENT. GLUCERNA 1.2 IS INFUSING VIA THE G-TUBE 50 ML/HR, WITH WATER FLUSHES 160 ML Q6H. PICC LINE ON THE RUE IS INFUSING NS 5 ML/HR TKO. FALL PRECAUTIONS AND CONTACT ISOLATION ARE IN PLACE. CALL LIGHT IS WITHIN REACH. PRESSURE ULCER DRESSINGS INTACT. WHITMORE CATHETER DRAINING CLEAR YELLOW URINE, AND COLOSTOMY INTACT IS INTACT. WILL CONTINUE TO MONITOR.
--- NOTE | 2019-01-09 07:18 | NUR ---
ENDORSED PATIENT TO DAY SHIFT NURSE, PATIENT STABLE.
[2019-01-09 08:00] VITALS: BP 90/56
[2019-01-09 08:03] LABS: ANION GAP 13.3 (8-16); CREATININE 0.7 mg/dL (0.6-1.3); POTASSIUM 4.3 mmol/L (3.5-5.1)
[2019-01-09] MEDS: LOSARTAN 25 MG TAB PO SCH (09:00)
[2019-01-09] MEDS: GABAPENTIN 100 MG CAP GT SCH ×3 (09:42→17:22)
[2019-01-09] MEDS: traMADol 50 MG TAB GT PRN (09:42)
[2019-01-09] MEDS: TOPIRAMATE 25 MG TAB GT SCH ×2 (09:42→20:40)
[2019-01-09] MEDS: ZINC SULF 220 MG CAP GT SCH (09:43)
[2019-01-09] MEDS: ASCORBIC ACID 500 MG TAB GT SCH (09:43)
[2019-01-09] MEDS: SERTRALINE 50 MG TAB GT SCH (09:43)
[2019-01-09] MEDS: BACLOFEN 10 MG TAB GT SCH ×3 (09:43→17:22)
[2019-01-09] MEDS: PANTOPRAZOLE 40 MG INJ VIAL IVP SCH (09:44)
[2019-01-09] MEDS: LEVOTHYROXINE 0.1 MG TAB GT SCH (09:44)
[2019-01-09] MEDS: ENOXAPARIN 40 MG/0.4 ML SYR SUBQ SCH (09:46)
--- NOTE | 2019-01-09 10:07 | NUR ---
RESTING WELL NO EVIDENCE OF PULMONARY DISTRESS NOTED GOOD CHEST RISE AIRWAY PATENT
--- NOTE | 2019-01-09 10:47 | NUR ---
AM MEDS ADMINISTERED, PT TOLERATED WELL. PT C/O LEG PAIN 04/13, ADMINISTERED PRN TRAMADOL. WILL REASSESS PAIN WITHIN AN HOUR.
[2019-01-09 12:00] VITALS: BP 99/62
--- NOTE | 2019-01-09 12:14 | NUR ---
NO APPARENT SOB NOTED GOOD CHEST RISE DEEP TRACHEAL SUCTION FOR MODERATE THIN YELLOW SECRETIONS AIRWAY PATENT
[2019-01-09] MEDS: THERAHONEY GEL 42.5 GM TP SCH (13:02)
[2019-01-09] MEDS: Z-GUARD PASTE TP SCH (13:11)
--- NOTE | 2019-01-09 13:47 | NUR ---
PT GIVEN A BED BATH, LINENS CHANGED, AND REPOSITIONED IN BED. PT C/O BEING UNCOMFORTABLE WHEN SHE IS LYING ON THE RIGHT SIDE. SHE IS MORE COMFORTABLE ON THE LEFT, BUT SHE HAS PRESSURE WOUNDS ON THE L SIDE SACRUM. PT IS AWARE THAT SHE HAS TO TURN SIDE TO SIDE IN ORDER FOR THE ULCERS TO HEAL.
--- NOTE | 2019-01-09 15:46 | NUR ---
NO SOB NOTED GOOD CHEST RISE
[2019-01-09 16:00] VITALS: BP 92/51
[2019-01-09] MEDS: TOBRAMYCIN IV SCH (17:22)
[2019-01-09] MEDS: DEXTROSE 5% IV SCH (17:22)
--- NOTE | 2019-01-09 17:48 | NUR ---
NO INDICATIONS OF RESPIRATORY DISTRESS NOTED GOOD CHEST RISE DEEP TRACHEAL SUCTION FOR SMALL THIN YELLOW SECRETIONS AIRWAY PATENT
--- NOTE | 2019-01-09 18:00 | NUR ---
CHANGED PT'S PICC LINE DRESSING. PT TOLERATED WELL. PICC LINE IS INTACT AND BOTH LUMENS PATENT. L HAND IV IS ALSO INTACT AND PATENT.
--- NOTE | 2019-01-09 19:20 | NUR ---
PT ENDORSED TO PRIVATE ADVISOR IN STABLE CONDITION.
--- NOTE | 2019-01-09 19:21 | NUR ---
RECEIVED BEDSIDE REPORT FROM DAY SHIFT NURSE DAMARIS. PT AAO X 4 AND ON TRACH TO VENT WITH 98% O2 SAT. NO SOB NOTED. PICC LINE NOTED ON RIGHT UPPER ARM AND SITE CLEAN, PATENT, AND ASYMPTOMATIC. G-TUBE SITE AND COLOSTOMY SITE CLEAN AND DRY. F/C IN PLACED. ALL SAFE PRECAUTION MET. INITIAL ASSESSMENT DONE. BED IN LOW POSITION. BED ALARM ON. CALL LIGHT AT BEDSIDE. WILL CONTINUE TO MONITOR.
[2019-01-09 20:00] VITALS: BP 92/51
[2019-01-09] MEDS: PIPER/TAZO 3.375GM/D5W PREMIX 50 ML IV SCH (20:40)
[2019-01-09] MEDS: LINEZOLID 600 MG TAB GT SCH (20:40)
--- NOTE | 2019-01-09 20:40 | NUR ---
DUE MEDICATION ADMINISTERED, PT TOLERATED WELL, NO DISTRESS NOTED, CALL LIGHT WITHIN REACH, WILL CONTINUE TO MONITOR.
[2019-01-10] VITALS: BP 94/53
[2019-01-10] MEDS: HYDROmorphone 1 MG/ML AMP IVP PRN ×4 (00:09→13:18)
--- NOTE | 2019-01-10 00:09 | NUR ---
DUE MEDICATION ADMINISTERED, PT C/O PAIN. V/S TAKEN, WITHIN PT BASELINE. MEDICATION ORDERED ADMINISTERED, PT TOLERATED WELL, NO DISTRESS NOTED, CALL LIGHT WITHIN REACH, WILL CONTINUE TO MONITOR.
[2019-01-10] MEDS: METOCLOPRAMIDE 10 MG/10 ML SYRP UDC GT SCH ×4 (00:12→22:07)
[2019-01-10] MEDS: diphenhydrAMINE 12.5 MG/5 ML UDC GT SCH ×5 (00:24→23:29)
[2019-01-10] MEDS: HYDRAGUARD CREAM TP SCH ×2 (01:32→13:20)
--- NOTE | 2019-01-10 02:14 | NUR ---
CHECKED ON PT, PT SLEEPING, NO DISTRESS NOTED, CALL LIGHT WITHIN REACH, WILL CONTINUE TO MONITOR.
--- NOTE | 2019-01-10 03:20 | NUR ---
PT C/O SEVERE PAIN ON BACK, 05/14. VITAL SIGN TAKEN, WITHIN PT'S BASELINE, MEDICATION ADMINISTERED. PT TOLERATED.
[2019-01-10 04:00] VITALS: BP 91/51
[2019-01-10] MEDS: levETIRAcetam 100 MG/ML ORASYR GT SCH ×3 (05:27→22:04)
[2019-01-10] MEDS: PIPER/TAZO 3.375GM/D5W PREMIX 50 ML IV SCH ×3 (05:28→22:07)
--- NOTE | 2019-01-10 05:28 | NUR ---
DUE MEDICATION ADMINISTERED, PT TOLERATED WELL, NO DISTRESS NOTED, CALL LIGHT WITHIN REACH, WILL CONTINUE TO MONITOR
[2019-01-10 06:35] LABS: BASOPHILS % (AUTO) 0.3 % (0.0-2.0); EOSINOPHILS # (AUTO) 0.7 K/uL (0-0.4); HEMOGLOBIN 9.4 g/dL (12.0-16.0); LYMPHOCYTES # (AUTO) 0.8 K/uL (2.5-16.5); MEAN CORPUSCULAR HEMOGLOBIN 27 pg (27-31); MEAN CORPUSCULAR HGB CONC 31 g/dL (33-37); MEAN CORPUSCULAR VOLUME 86.5 fL (80-94); MONOCYTES # (AUTO) 0.5 K/uL (0.8-1.0); MONOCYTES % (AUTO) 7.8 % (1.7-9.3); NEUTROPHILS # (AUTO) 4.8 K/uL (1.8-7.7); NEUTROPHILS % (AUTO) 69.9 % (42.2-75.2); PLATELET COUNT (AUTO) 242 K/uL (140-450); RED BLOOD CELL COUNT(AUTO) 3.47 MIL/uL (4.20-5.40); RED CELL DISTRIBUTION WIDTH 19.3 % (11.6-13.7); WHITE BLOOD COUNT (AUTO) 6.8 K/uL (4.8-10.8)
[2019-01-10 06:44] LABS: MAGNESIUM 2.2 mg/dL (1.8-2.4); PHOSPHORUS 5.3 mg/dL (2.5-4.9)
--- NOTE | 2019-01-10 07:22 | NUR ---
ENDORSED PATIENT AT BEDSIDE TO DAY SHIFT NURSE FOR CONTINUITY OF CARE. PATIENT IS IN STABLE CONDITION. NEXT TO PATIENT. CONTACT PRECAUTION ARE IN PLACE. TELE MONITOR ATTACHED.
[2019-01-10] MEDS: ALBUTEROL SULFATE/IPRATROPIU 3 ML SOL IH SCH ×3 (07:26→20:26)
--- NOTE | 2019-01-10 07:29 | NUR ---
RECEIVED BEDSIDE REPORT FROM RETAIL LEASING AGENT NURSE. PT AAO X 4 AND ON TRACH TO VENT WITH 99% O2 SAT. NO SOB NOTED. PICC LINE NOTED ON RIGHT UPPER ARM AND SITE CLEAN, PATENT, AND ASYMPTOMATIC. G-TUBE SITE AND COLOSTOMY SITE CLEAN AND DRY. F/C IN PLACED. ALL SAFETY PRECAUTIONS MET. INITIAL ASSESSMENT DONE. BED IN LOW POSITION. BED ALARM ON. CALL LIGHT AT BEDSIDE. WILL CONTINUE TO MONITOR.
[2019-01-10 08:00] VITALS: BP 96/57
[2019-01-10] MEDS: LOSARTAN 25 MG TAB PO SCH (09:00)
[2019-01-10 09:25] LABS: ANION GAP 17.6 (8-16); CREATININE 0.7 mg/dL (0.6-1.3); POTASSIUM 4.6 mmol/L (3.5-5.1)
[2019-01-10] MEDS ORDERED: LACTULOSE 20 GM/30 ML UDC PO SCH (09:31)
[2019-01-10] MEDS: BACLOFEN 10 MG TAB GT SCH ×3 (09:45→18:09)
[2019-01-10] MEDS: PANTOPRAZOLE 40 MG INJ VIAL IVP SCH (09:45)
[2019-01-10] MEDS: TOPIRAMATE 25 MG TAB GT SCH ×2 (09:46→22:05)
[2019-01-10] MEDS: ASCORBIC ACID 500 MG TAB GT SCH (09:46)
[2019-01-10] MEDS: LEVOTHYROXINE 0.1 MG TAB GT SCH (09:46)
[2019-01-10] MEDS: ZINC SULF 220 MG CAP GT SCH (09:46)
[2019-01-10] MEDS: LINEZOLID 600 MG TAB GT SCH ×2 (09:46→22:05)
--- NOTE | 2019-01-10 09:47 | NUR ---
ADMINISTERED MEDS TO PT. PT TOLERATED THEM WELL. PAIN MEDICATION WAS GIVEN FOR 8/10 PAIN IN THE LEGS. PT VERBALIZED NO DISTRESS AT THIS TIME. BED IN LOW POSITION, CALL LIGHT WITHIN REACH. WILL CONTINUE TO ROUND FREQUENTLY ON PT.
[2019-01-10] MEDS: ENOXAPARIN 40 MG/0.4 ML SYR SUBQ SCH (09:48)
[2019-01-10] MEDS ORDERED: SODIUM PHOS / POTASSIUM PHOS 1 PKT PDR PO SCH (10:00)
--- NOTE | 2019-01-10 11:29 | NUR ---
PT RESTING IN BED. RT AT BEDSIDE. PT VERBALIZES NO PAIN OR DISTRESS AT THIS TIME. WILL CONTINUE TO ROUND FREQUENTLY.
[2019-01-10 12:00] VITALS: BP 107/66
--- NOTE | 2019-01-10 13:14 | NUR ---
PT RESTING IN BED. PAIN MEDICATION GIVEN FOR 8/10 PAIN IN LEGS. WILL CONTINUE TO ROUND FREQUENTLY ON PT AND TO REASSESS FOR MED EFFECTIVENESS.
[2019-01-10] MEDS: GABAPENTIN 300 MG CAP GT SCH ×2 (13:19→18:09)
[2019-01-10] MEDS: THERAHONEY GEL 42.5 GM TP SCH (13:20)
[2019-01-10] MEDS: Z-GUARD PASTE TP SCH (13:20)
--- NOTE | 2019-01-10 14:50 | NUR ---
SPOKE WITH CARY AT [facility]. SHE IS AWARE OF PATIENT'S ISOLATION. FAXED INQUIRY. NO DISCHARGE DATE YET.
--- NOTE | 2019-01-10 15:41 | NUR ---
0334 HELPED REHAB WITH SWALLOW EVAL. AIR LET OUT OF CUFF DURING PROCEDURE. PT ABLE TO TALK AND NO SOB NOTED DURING EVAL. AIR PUT BACK IN CUFF POST PROCEDURE
--- NOTE | 2019-01-10 15:43 | NUR ---
PT IN ROOM WITH SPEECH THERAPIST. PT ABOUT TO HAVE SWALLOW EVAL DONE. RT WAS CALLED TO BE PRESENT AT [facility] IN CASE OF SUCTIONING REQUIRED.
[2019-01-10 16:00] VITALS: BP 90/51
--- NOTE | 2019-01-10 16:04 | NUR ---
S.T. BEDSIDE SWALLOW EVAL COMPLETED See report for details. Pt was seen at bedside. DEMOGRAPHIC ANALYST role and eval purpose was explained to her. RT Shea present to assist w/ cuff deflation and deep suctioning in-line w/ trach. Pt able to voice well w/ cuff deflated. Pt was given P.O. trials of ice chips w/ grape juice, 4 oz. total in 5 cc boluses via spoon and straw sips. Pt demonstrated adequate oropharyngeal swallow. Upon deep suctioning, no evidence of grape juice colored secretions noted. Solids not given at this time due to pt's overall deconditioning and risk for aspriation. Recommend: 1) Small amounts of sips of water/juice and ice chips FOR ORAL GRATIFICATION ONLY. Primary mode of nutrition, hydration and P.O. meds should remain via G-tube. 2) P.O. for oral graficiation should only be given when pt is awake, alert, seated fully upright at 90 degrees w/ trach cuff fully deflated. D/w pt and JAY Sanz results/recommendations. DC to [facility] at this time. Time [id number]
--- NOTE | 2019-01-10 17:35 | NUR ---
PT ASLEEP AT THIS TIME. VENT CHECK COMPLETED. PT REMAINS ON DOCUMENTED VENT SETTINGS. VENT ALARMS REMAIN ON AND FUNCTIONING. AIRWAY IS PATENT AND TRACH REMAINS SECURE.
[2019-01-10] MEDS ORDERED: COL100L GT (17:46)
[2019-01-10] MEDS ORDERED: BACL10TA4 GT (17:46)
[2019-01-10] MEDS ORDERED: Hydraguard TP (17:46)
[2019-01-10] MEDS ORDERED: METO5SOL20 GT (17:46)
[2019-01-10] MEDS ORDERED: TOBRAMYCIN PER PHARMACY MC (17:46)
[2019-01-10] MEDS ORDERED: Therahoney Gel TP (17:46)
[2019-01-10] MEDS ORDERED: ZGUARD TP (17:46)
[2019-01-10] MEDS ORDERED: ALBU3SOL83 IH (17:46)
[2019-01-10] MEDS ORDERED: LACT10SO11 PO (17:46)
[2019-01-10] MEDS ORDERED: DIL1I IVP (17:46)
[2019-01-10] MEDS ORDERED: TRAM50TA3 GT (17:46)
[2019-01-10] MEDS ORDERED: LINE600T GT (17:46)
[2019-01-10] MEDS ORDERED: PIPE1SOL IV (17:46)
[2019-01-10] MEDS ORDERED: LOSA25TA1 PO (17:46)
[2019-01-10] MEDS ORDERED: GABA-638 GT (17:46)
[2019-01-10] MEDS: TOBRAMYCIN IV SCH (18:08)
[2019-01-10] MEDS: DEXTROSE 5% IV SCH (18:08)
--- NOTE | 2019-01-10 19:15 | NUR ---
ENDORSED PT TO STEAM GIGGER FOR CONTINUITY OF CARE. PT IN STABLE CONDITION.
--- NOTE | 2019-01-10 19:17 | NUR ---
RECEIVED PT REPORT FROM AM SHIFT NURSE, PT IS ASLEEP, BEDREST, NO S/S OF ACUTE DISTRESS OR SOB NOTED AT THIS TIME. PT IS TRACH TO VENT. GLUCERNA 1.2 IS CHANGED VIA THE G-TUBE 50 ML/HR, WITH WATER FLUSHES 160 ML Q6H. PICC LINE ON RUE DOUBLE LUMEN. PT FALL PRECAUTIONS AND CONTACT ISOLATION ARE IN PLACE. CALL LIGHT IS WITHIN REACH. WHITMORE CATHETER DRAINING CLEAR YELLOW URINE, AND COLOSTOMY INTACT IS INTACT, DRAINING YELLOWISH LIQUID STOOL. PT PLACED ON LOW BED, WOUND CARE BED. FALL PRECAUTIONS IN PLACE. CALL LIGHT WITHIN REACH. WILL CONTINUE TO MONITOR.
[2019-01-10 20:00] VITALS: BP 100/69
--- NOTE | 2019-01-10 20:00 | NUR ---
TURNED Q2, PLACED PT COMFORTABLY, PT STILL SLEEPING
--- NOTE | 2019-01-10 20:27 | NUR ---
RECEIVED ON A [employer] R860 VENTILATOR WITH COMPRESSOR ON AND FUNCTIONING WELL PLUGGED INTO RED OUTLET TOLERATING WELL TO A Hexago DCT #6 AIRWAY SECURED WITH A TAWANDA TRACH TIE CUFF PRESSURE CHECKED NOTED AMBU BAG AT HOB LOC QUIET RESTING WELL NO INDICATION OF PULMONARY DISTRESS NOTED BTREATH SOUNDS RHONCHI BILATERAL GOOD CHEST RISE DEEP TRACHEAL SUCTION FOR MODERATE THJIN YELLOW SECRETIONS AIRWAY PATENT
--- NOTE | 2019-01-10 21:36 | NUR ---
NO DISTRESS NOTED GOOD CHEST RISE
--- NOTE | 2019-01-10 22:00 | NUR ---
PT'S RESIDUAL CHECK = 60 ML.
--- NOTE | 2019-01-10 23:45 | NUR ---
RESTING WELL NO EVIDENCE OF RESPIRATORY DISTRESS NOTED CHEST RISE EQUAL BILATERAL WITH GOOD AERATION THROUGHOUT LUNG DAVID AIRWAY PATENT
[2019-01-11] VITALS: BP 111/70
--- NOTE | 2019-01-11 | NUR ---
TURNED PT Q2; PT ASLEEP, ADJUSTED BEDDINGS AND GOWN
[2019-01-11] MEDS: HYDRAGUARD CREAM TP SCH ×2 (01:04→13:01)
--- NOTE | 2019-01-11 01:57 | NUR ---
NO APPARENT RESPIRATORY DISTRESS NOTED GOOD CHEST RISE AND AERATION THROUGHOUT BILATERAL LUNG DAVID AIRWAY PATENT
--- NOTE | 2019-01-11 02:00 | NUR ---
CHECKED ON PT'S WOUND, DRY AND INTACT. PT TURNED Q2; HYDRAGUARD APPLIED EARLIER
[2019-01-11] MEDS: HYDROmorphone 1 MG/ML AMP IVP PRN ×4 (02:31→15:20)
--- NOTE | 2019-01-11 02:31 | NUR ---
PT C.O PAIN PT AWAKENED DUE TO PAIN ON WOUNDS. MEDICATED W/ DILAUDID
--- NOTE | 2019-01-11 03:33 | NUR ---
NO DISTRESS PRESENTING AT THIS TIME GOOD CHEST RISE AIRWAY PATENT
[2019-01-11 04:00] VITALS: BP 107/62
--- NOTE | 2019-01-11 04:00 | NUR ---
TURNED PT Q2; PT ASLEEP,LEG STRAIGHTENED SUSANNE RIGHT PER PATIENT REQUEST.
[2019-01-11] MEDS: PIPER/TAZO 3.375GM/D5W PREMIX 50 ML IV SCH ×2 (04:42→13:05)
[2019-01-11] MEDS: levETIRAcetam 100 MG/ML ORASYR GT SCH ×2 (04:43→12:51)
[2019-01-11] MEDS: METOCLOPRAMIDE 10 MG/10 ML SYRP UDC GT SCH ×2 (04:44→12:51)
--- NOTE | 2019-01-11 05:21 | NUR ---
STABLE AWAKE MOUTHING WORD GOOD CHEST RISE DEEP TRACHEAL SUCTION FOR SCANT THIN YELLOW SECRETIONS AIRWAY PATENT
[2019-01-11] MEDS: diphenhydrAMINE 12.5 MG/5 ML UDC GT SCH ×2 (05:25→12:51)
--- NOTE | 2019-01-11 06:00 | NUR ---
TURNED PT Q2; PT AWAKE, CLEANED AND DRAINED COLOSTOMY AND F/C OUTPUT C/O MEDICAL WRITER. STRAIGHTENED LEGS PER PT REQUEST.
[2019-01-11] MEDS: ALBUTEROL SULFATE/IPRATROPIU 3 ML SOL IH SCH ×2 (06:32→13:06)
--- NOTE | 2019-01-11 06:32 | NUR ---
REC'D PT ON [employer] VENT SETTINGS AC 12 VT 400 PEEP 5 FIO2 28% ALARMS ON AND AUDIBLE AMBU BAG AT SIDE OF VENT AND VENT IS PLUGGED INTO RED OUTLET, I\L TX GIVEN WITH DUONEB 3ML WITH NO ADVERSE REACTION POST TX, B\S ARE DIMINISHED BILATERALLY AND SNX PT SMALL AMT OF THIN YELLOW SECRETIONS, PT IS TRACH WITH SHILEY DCT #6 AND SKIN INTEGRITY IS INTACT PT IS AWAKE WITH NO SIGNS OF DISTRESS NOTED AT THIS TIME
[2019-01-11 06:33] LABS: MAGNESIUM 2.4 mg/dL (1.8-2.4); PHOSPHORUS 5.4 mg/dL (2.5-4.9)
[2019-01-11 06:38] LABS: ANION GAP 13.2 (8-16); CARBON DIOXIDE 25.9 mmol/L (21-32); CREATININE 0.7 mg/dL (0.6-1.3); POTASSIUM 4.1 mmol/L (3.5-5.1)
--- NOTE | 2019-01-11 07:00 | NUR ---
PT AWAKE IN BED, PT IN STABLE CONDITION. WILL ENDORSE TO NEXT SHIFT FOR CONTINUITY OF CARE.
--- NOTE | 2019-01-11 07:15 | NUR ---
RECEIVED BEDSIDE REPORT FROM IRON BENDER NURSE. PT IS AWAKE. AOX4. DENIES PAIN AND NO S/S OF ACUTE DISTRESS OR SOB NOTED AT THIS TIME. TRACH TO VENT, FIO2 AT 28%. CHEST RISE IS SYMMETRICAL. G-TUBE IN PLACE AND RUNNING GLUCERNA 1.2 AT 50 ML/HR, WITH WATER FLUSHES 160 ML Q6H. PICC LINE ON RUE DOUBLE LUMEN. L HIP WOUND AND SACRAL WOUND NOTED, DRESSING ARE CLEAN AND DRY. PATIENT IS BEDREST ON WOUND CARE BED. FALL PRECAUTIONS AND CONTACT ISOLATION ARE IN PLACE. WHITMORE CATHETER DRAINING CLEAR YELLOW URINE, AND COLOSTOMY INTACT IS INTACT, 1/3 FULL. FALL PRECAUTIONS IN PLACE. DISCUSSED PLAN OF CARE WITH PATIENT AND PATIENT MOUTHED "OK." INSTRUCTED PATIENT TO USE THE CALL LIGHT FOR ANY ASSISTANCE. PATIENT WAS ACKNOWLEDGED. BED IN LOW POSITION AND CALL LIGHT WITHIN REACH.
[2019-01-11 07:37] LABS: BASOPHILS % (AUTO) 0.4 % (0.0-2.0); EOSINOPHILS # (AUTO) 0.7 K/uL (0-0.4); EOSINOPHILS % (AUTO) 10.1 % (0.0-4.0); HEMATOCRIT 30.6 % (36-48); HEMOGLOBIN 9.6 g/dL (12.0-16.0); LYMPHOCYTES # (AUTO) 0.6 K/uL (2.5-16.5); LYMPHOCYTES % (AUTO) 9.3 % (20.5-51.1); MEAN CORPUSCULAR HEMOGLOBIN 27 pg (27-31); MEAN CORPUSCULAR HGB CONC 31 g/dL (33-37); MEAN CORPUSCULAR VOLUME 87.1 fL (80-94); MONOCYTES # (AUTO) 0.5 K/uL (0.8-1.0); NEUTROPHILS # (AUTO) 4.8 K/uL (1.8-7.7); NEUTROPHILS % (AUTO) 73.2 % (42.2-75.2); PLATELET COUNT (AUTO) 232 K/uL (140-450); RED BLOOD CELL COUNT(AUTO) 3.51 MIL/uL (4.20-5.40); RED CELL DISTRIBUTION WIDTH 19.9 % (11.6-13.7); WHITE BLOOD COUNT (AUTO) 6.5 K/uL (4.8-10.8)
[2019-01-11 08:00] VITALS: BP 103/61
[2019-01-11] MEDS: GABAPENTIN 300 MG CAP GT SCH ×3 (08:10→17:51)
[2019-01-11] MEDS: ZINC SULF 220 MG CAP GT SCH (08:11)
[2019-01-11] MEDS: LEVOTHYROXINE 0.1 MG TAB GT SCH (08:11)
[2019-01-11] MEDS: TOPIRAMATE 25 MG TAB GT SCH (08:11)
[2019-01-11] MEDS: ASCORBIC ACID 500 MG TAB GT SCH (08:12)
[2019-01-11] MEDS: BACLOFEN 10 MG TAB GT SCH ×3 (08:12→17:51)
[2019-01-11] MEDS: LINEZOLID 600 MG TAB GT SCH (08:12)
[2019-01-11] MEDS: LOSARTAN 25 MG TAB PO SCH (08:13)
[2019-01-11] MEDS: PANTOPRAZOLE 40 MG INJ VIAL IVP SCH (08:15)
[2019-01-11] MEDS: ENOXAPARIN 40 MG/0.4 ML SYR SUBQ SCH (08:15)
--- NOTE | 2019-01-11 08:31 | NUR ---
ADMINISTERED MEDS PER MD ORDER VIA [employer], FLUSHED BEFORE AND AFTER MEDS ADMINISTER , PATIENT TOLERATED WELL. PATIENT REFUSED TO TAKE LOSARTAN POTASSIUM AND MOUTHED "MY BP IS GOOD AND I DON'T NEED TO TAKE THE BP MED. I DON'T WANT IT." HOLD MED AND MEDICATION EDUCATION PROVIDED TO PATIENT. PATIENT IS RESTING ON BED. DENIES PAIN AND SOB, SPO2 IS AT 100% AT THIS TIME. TELE MONITOR ATTACHED. SAFETY MEASURES ARE IN PLACE.
[2019-01-11] MEDS ORDERED: LACTULOSE 20 GM/30 ML UDC PO SCH (09:00)
--- NOTE | 2019-01-11 09:57 | NUR ---
PATIENT C/ OF SEVERE PAIN OF 8 ON HER BACK. ADMINISTERED PRN PAIN MED. PATIENT TOLERATED WELL. SAFETY MEASURES IN PLACE. Addendum: 01/11/19 at 1002 by Deedee Greer RN C/O OF
--- NOTE | 2019-01-11 11:28 | NUR ---
PATIENT IS RESTING ON BED. DENIES PAIN AND SOB. SPO2 IS AT 100% THIS TIME. NO SIGNS OF DISTRESS NOTED. SAFETY MEASURES IN PLACE. TELE MONITOR ATTACHED.
[2019-01-11 12:00] VITALS: BP 94/51
--- NOTE | 2019-01-11 12:50 | NUR ---
CALLED [facility] AND SPOKE WITH CARY. THE PATIENT CAN GO TO ROOM 20A AFTER 5P.M[address] UNDER DR. CLEVELAND LEYVA. PHONE [phone]. STEFAN THOMPSON AWARE.
[2019-01-11] MEDS: THERAHONEY GEL 42.5 GM TP SCH (13:02)
[2019-01-11] MEDS: Z-GUARD PASTE TP SCH (13:02)
--- NOTE | 2019-01-11 13:16 | NUR ---
SPOKE WITH STEFAN THOMPSONWEB MARKETING STRATEGIST NURSE. SHE WILL SET UP TRANSPORT.
--- NOTE | 2019-01-11 13:41 | NUR ---
PATIENT WOULD LIKE TO GET SOME ICE CHIP. RT HELPED DEFLATED CUFF AND ELEVATED BED OF HEAD. PATIENT TOLERATED WELL. SAFETY MEASURES IN PLACE. TELE MONITOR ATTACHED.
[2019-01-11 16:00] VITALS: BP 99/60
--- NOTE | 2019-01-11 16:35 | NUR ---
CALLED [facility] AND GAVE FULL REPORT TO JAG Cowan RN. ANSWERED ALL JAG'S QUESTIONS AND JAG WAS AWARE THAT PATIENT IS GOING TO TRANSFER TO [facility] AND PLACED IN ROOM 20A AND UNDER THE CARE OF DR MARIBEL LEYVA.
--- NOTE | 2019-01-11 16:50 | NUR ---
CALLED PATIENT'S ASHLEY AND NOTIFIED THAT PATIENT WILL BE TRANSFERRED TO [facility] THIS EVENING TO ROOM 20A AND UNDER THE CARE OF DR CLEVELAND LEYVA. ASHLEY VERBALIZED UNDERSTANDING AND WAS AWARE OF THE TRANSFER.
--- NOTE | 2019-01-11 17:13 | NUR ---
INSTRUCTED VISITOR TRACEY TO PUT ON PPE BEFORE ENTER PATIENT ROOM. PATIENT IS TALKING TO VISITOR TRACEY. NO SIGNS OF DISTRESS NOTED. SAFETY MEASURES IN PLACE. TELE MONITOR ATTACHED.
--- NOTE | 2019-01-11 18:10 | NUR ---
DISCHARGE INSTRUCTION PROVIDED TO PATIENT AND PATIENT SIGNATURE ALL DOCUMENTS. EDUCATED PATIENT ON DISEASE MANAGEMENT, SIGNS AND SYMPTOMS, FOLLOW UP WITH MD, MEDICATIONS REGIMEN AND SIDE EFFECTS. PATIENT VERBALIZED UNDERSTANDING. PATIENT REFUSED TO ALL VACCINES. G-TUBE IN PLACE, DOUBLE LUMEN PICC LINE IN PLACE, COLOSTOMY BAG IN PLACE. REMOVED ALL ARM BANDS. FULL REPORT GAVE TO TRANSPORT NURSE ULYSSES AT BEDSIDE. PATIENT'S FRIEND TRACEY WAS AT BEDSIDE. NO SIGNS OF DISTRESS NOTED. PATIENT IS TRANSFER TO [facility] AT THIS TIME. ESCORTED PATIENT TO THE LOBBY VIA GURNEY ACCOMPANIED BY QUALITY IMPROVEMENT ANALYST ULYSSES AND ROBOTIC MAINTENANCE TECHNICIAN.
== END 2019-01-11 18:10 | DRG 870 ==
LOC: MED 07:23 → MIC 10:12 → MTU 01-03 23:00
PROVIDERS: ADMIT General Practice; ATTEND General Practice
PROC: B548ZZA Ultrasonography of Superior Vena Cava, Guidance (ICD-10-PCS; principal; 2018-12-30)
PROC: 5A1955Z Respiratory Ventilation, Greater than 96 Consecutive Hours (ICD-10-PCS; 2018-12-30)
PROC: 05JYXZZ Inspection of Upper Vein, External Approach (ICD-10-PCS; 2018-12-30)
PROC: 02HV33Z Insertion of Infusion Device into Superior Vena Cava, Percutaneous Approach (ICD-10-PCS; 2018-12-30)
PROC: B54MZZA Ultrasonography of Right Upper Extremity Veins, Guidance (ICD-10-PCS; 2018-12-30)
DX: A41.9 Sepsis, unspecified organism (principal); L89.224 Pressure ulcer of left hip, stage 4; L89.154 Pressure ulcer of sacral region, stage 4; J96.21 Acute and chronic respiratory failure with hypoxia; R65.21 Severe sepsis with septic shock; N17.0 Acute kidney failure with tubular necrosis; J69.0 Pneumonitis due to inhalation of food and vomit; G93.41 Metabolic encephalopathy; I50.43 Acute on chronic combined systolic (congestive) and diastolic (congestive) heart failure; G82.20 Paraplegia, unspecified; N39.0 Urinary tract infection, site not specified; G72.81 Critical illness myopathy; I42.9 Cardiomyopathy, unspecified; J98.11 Atelectasis; Z99.11 Dependence on respirator [ventilator] status; E87.5 Hyperkalemia; N18.9 Chronic kidney disease, unspecified; E11.22 Type 2 diabetes mellitus with diabetic chronic kidney disease; G40.909 Epilepsy, unspecified, not intractable, without status epilepticus; I27.20 Pulmonary hypertension, unspecified; J40 Bronchitis, not specified as acute or chronic; M32.9 Systemic lupus erythematosus, unspecified; F41.9 Anxiety disorder, unspecified; E86.0 Dehydration; E11.43 Type 2 diabetes mellitus with diabetic autonomic (poly)neuropathy; K31.84 Gastroparesis; R13.10 Dysphagia, unspecified; L89.322 Pressure ulcer of left buttock, stage 2; G71.00 Muscular dystrophy, unspecified; E87.6 Hypokalemia; E11.42 Type 2 diabetes mellitus with diabetic polyneuropathy; K72.90 Hepatic failure, unspecified without coma; T45.1X5A Adverse effect of antineoplastic and immunosuppressive drugs, initial encounter; Z88.2 Allergy status to sulfonamides; Z93.0 Tracheostomy status; Z93.3 Colostomy status; Z88.5 Allergy status to narcotic agent; Z88.8 Allergy status to other drugs, medicaments and biological substances; Z74.01 Bed confinement status; Y92.89 Other specified places as the place of occurrence of the external cause; Z93.1 Gastrostomy status; Z79.84 Long term (current) use of oral hypoglycemic drugs
CPT/HCPCS: 36415; 36600; 71045; 76700; 80048; 80053; 80076; 80200; 80202; 81001; 82140; 82150; 82803; 82948; 82977; 83036; 83605; 83690; 83735; 83880; 84100; 84443; 84484; 85025; 85610; 85730; 87040; 87070; 87075; 87081; 87086; 87186; 87205; 89220; 92610; 93005; 93925; 93970; 94002; 94003; 94640; 96365; 96366; 96367; 96375; 97110; 99291; A4649; C1751; C9113; J0696; J1170; J1642; J1650; J1815; J2001; J2060; J2270; J2543; J3260; J3370; J3490; J7030; J7042; J7060; J7620; J8597; Q0092; Q0162; Q0163

== ENCOUNTER 2019-01-20 09:38 | Inpatient (IN) | payer OTHER, MEDICAID ==
[2019-01-20] VITALS (33 sets, daily range): BP systolic 72–128; BP diastolic 48–76
[~2019-01-20] VITALS: Ht 162.6 cm; Wt 55.8 kg
--- NOTE | 2019-01-20 09:34 | NUR ---
PT BIBA FOR ALTERED MENTAL STATUS. CHRONIC VENT UPON ARRIVAL PT PLACED ON SETTINGS FROM HER FACILITY. AC//400/40%/+5. WE SUCTIONED SMALL AMOUNT OF BLOODY THICK SECRETIONS AND A LARGE BLOODY MUCUS PLUG. AN ABG WAS ATTEMPTED MULTIPLE TIMES BUT UNABLE TO OBTAIN SAMPLE. MD ALCARAZ AWARE.
[~2019-01-20 09:38] MED LIST: ACET-2619 GT; ALBU3SOL83 IH; ASCO500T45 GT; BACL10TA4 GT; BEN50 GT; COL100L GT; FENT100T TD; GABA-638 GT; GABA400C GT; HYDR1LIQ6 GT; HYDR200T5 GT; Hydraguard TP; KEP500L GT; LACT10SO11 PO; LANS15EC28 GT; LINE600T GT; LORA-476 GT; LOSA25TA1 PO; LOV40I SUBQ; METO-485 GT; METO5SOL20 GT; MULT-1640 GT; ONDA4TAB GT; PIPE1SOL IV; SERT25TA GT; SYN.075 GT; TOBRAMYCIN PER PHARMACY MC; TOPI50TA GT; TRAM50TA1 GT; TRAM50TA3 GT; Therahoney Gel TP; ZGUARD TP; ZINC220C12 GT
--- NOTE | 2019-01-20 09:38 | NUR ---
PATIENT BIBA TO BED 10 AT THIS TIME.
--- NOTE | 2019-01-20 09:40 | NUR ---
BIBA FOR ALOC AND SOB FROM FACILITY. PT NOT RESPONDING TO VERBAL STIMULI ONLY PAIN. PT IS BEING BAGGED VIA TRACH. PT HAS MULTIPLE SCARS AND ABRASIONS TO SKIN IN DIFFERENT STAGES OF HEALING. COLOSTOMY PRESENT.NONVERBAL, DOES NOT FOLLOW COMMANDS, DOES NOT OPEN EYES.BEDSIDE MONITOR SHOWS ST 120S, ATTACHED PT TO VENTILATOR,PATIENT POSITIONED FOR COMFORT; HOB ELEVATED; BEDRAILS UP X2; BED DOWN. ER MD MADE AWARE OF PT STATUS.
[2019-01-20] MEDS ORDERED: NACL 0.9% 1,000 ML IV ONE ×3 (09:45→12:45)
[2019-01-20] MEDS ORDERED: ACETAMINOPHEN 650 MG SUPP RC ONE (09:45)
[2019-01-20] MEDS ORDERED: VANCOMYCIN 1,000 MG in DEXTROSE 5% 250 ML IV ONE (09:50)
[2019-01-20] MEDS ORDERED: PIPERACILLIN/TAZOBACTAM 4.5 GM in DEXTROSE 5% 100 ML IV ONE (09:50)
[2019-01-20] MEDS ORDERED: ACETAMINOPHEN 325 MG SUPP RC ONE (09:58)
[2019-01-20] MEDS ORDERED: VANCOMYCIN 1,000 MG VIAL ONE (10:14)
[2019-01-20] MEDS ORDERED: PIPERACILLIN/TAZOBACTAM 2.25 GM VIAL IV ONE (10:14)
[2019-01-20 10:34] LABS: BASOPHILS # (AUTO) 0.2 K/uL (0.00-0.22); BASOPHILS % (AUTO) 0.7 % (0.0-2.0); HEMATOCRIT 45.6 % (36-48); HEMOGLOBIN 13.6 g/dL (12.0-16.0); LYMPHOCYTES # (AUTO) 1.3 K/uL (2.5-16.5); LYMPHOCYTES % (AUTO) 6.2 % (20.5-51.1); MEAN CORPUSCULAR HEMOGLOBIN 27 pg (27-31); MEAN CORPUSCULAR HGB CONC 30 g/dL (33-37); MEAN CORPUSCULAR VOLUME 89.3 fL (80-94); MONOCYTES # (AUTO) 1.5 K/uL (0.8-1.0); MONOCYTES % (AUTO) 6.9 % (1.7-9.3); NEUTROPHILS # (AUTO) 18.1 K/uL (1.8-7.7); NEUTROPHILS % (AUTO) 86.2 % (42.2-75.2); PLATELET COUNT (AUTO) 367 K/uL (140-450); RED CELL DISTRIBUTION WIDTH 18.9 % (11.6-13.7); WHITE BLOOD COUNT (AUTO) 21.1 K/uL (4.8-10.8)
[2019-01-20 10:43] LABS: PROTHROMBIN TIME 11.8 secs (10.8-13.4)
[2019-01-20 10:50] LABS: ALBUMIN 3.2 g/dL (3.4-5.0); ANION GAP 20.9 (8-16); CARBON DIOXIDE 22.8 mmol/L (21-32); CREATININE 3.7 mg/dL (0.6-1.3); POTASSIUM 4.7 mmol/L (3.5-5.1); TOTAL BILIRUBIN 0.4 mg/dL (0.0-1.0)
[2019-01-20 11:09] LABS: CREATINE KINASE MB 1.8 ng/mL (0-3.6)
--- NOTE | 2019-01-20 11:30 | NUR ---
rechecked rectal temp 102.5 F, notified
[2019-01-20] MEDS ORDERED: ASPIRIN 600 MG SUPP RC ONE (11:35)
--- NOTE | 2019-01-20 12:02 | NUR ---
pt opens eyes spontaneously but unable to follow commands or make needs known.
[2019-01-20] MEDS ORDERED: DOCUSATE SODIUM 100 MG GELCAP PO PRN (12:05)
[2019-01-20] MEDS ORDERED: ACETAMINOPHEN 325 MG TAB PO PRN (12:05)
[2019-01-20] MEDS ORDERED: NACL 0.9% 1,000 ML IV SCH (12:05)
[2019-01-20] MEDS ORDERED: DEXTROSE 50% 50 ML SYR IVP PRN (12:55)
[2019-01-20] MEDS ORDERED: ALBUTEROL SULFATE/IPRATROPIU 3 ML SOL IH PRN (12:55)
--- NOTE | 2019-01-20 13:00 | NUR ---
rechecked pt bp 75/41, hr 98, temp 100.7, o2 sats 100%. notified dr. awad, per dr. awad, give the thrid bag of lvf to see how pt is doing,will carry out.
[2019-01-20] MEDS ORDERED: DOCUSATE 100 MG/10 ML UDC GT PRN (13:10)
[2019-01-20 13:27] LABS: PHOSPHORUS 4.2 mg/dL (2.5-4.9)
[2019-01-20] MEDS ORDERED: VANCOMYCIN PER PHARMACY MC PRN (13:30)
--- NOTE | 2019-01-20 13:30 | NUR ---
pt transferred to icu 8.
[2019-01-20 13:31] LABS: MAGNESIUM 4.2 mg/dL (1.8-2.4)
[2019-01-20] MEDS ORDERED: NACL 0.45% 1,000 ML IV SCH (13:45)
--- NOTE | 2019-01-20 13:45 | NUR ---
RECEIVED PATIENT FROM VALANCE CUTTERGRANT FOR CONTINUITY OF CARE. PATIENT IS AAOX0, DOES NOT RESPOND TO PAINFUL STIMULI. SKIN IS COOL AND DRY, NOT INTACT, SHE HAS MULTIPLE PRESSURE INJURIES. PATIENT IS TRACH TO VENT, Addendum: 01/20/19 at 1510 by Cheko Macias RN SETTINGS ARE AC/VC RATE 12, FIO2 35%, VT 400, PEEP 5. BREATHING EVEN AND UNLABORED. SR ON MONITOR, PATIENT IS HYPOTENSIVE, DR. PIERRE AWARE, WAITING FOR LEVOPHED DRIP. FLACC 0. PATIENT HAS PICC LINE TO RIGHT UPPER ARM, ASYMPTOMATIC AND PATENT. PATIENT HAS GTUBE TO LEFT UPPER QUADRANT, PATIENT. WHITMORE CATHETER IN PLACE TO CLEAR YELLOW URINE. HOB IS 30 DEGREES, BED LOCKED, SAFETY PRECAUTIONS AND ALARMS IN PLACE. WILL CONTINUE TO MONITOR
--- NOTE | 2019-01-20 13:48 | NUR ---
TRANSFERRED PT FROM ER BED 10 TO ICU 8 NO DISTRESS NOTED BEFORE DURING OR AFTER TRANSPORT. AIRWAY SECURE AND PATENT, BVM AT BEDSIDE AND VENTILATOR PLUGGED INTO RED OUTLETS
[2019-01-20] MEDS ORDERED: NOREPINEPHRINE 4 MG in DEXTROSE 5% 250 ML IV PRN (13:55)
[2019-01-20] MEDS: ALBUTEROL SULFATE/IPRATROPIU 3 ML SOL IH SCH ×2 (13:58→19:31)
[2019-01-20] MEDS ORDERED: COMMUNICATION ORDER MC SCH (14:05)
[2019-01-20] MEDS ORDERED: THIAMINE 200 MG/2 ML VIAL IV SCH (14:05)
--- NOTE | 2019-01-20 14:09 | NUR ---
DR. BRAR AND DR. SOLER AT BEDSIDE, AWARE OF PATIENT BEING HYPOTENSIVE. WILL START PATIENT ON LEVOPHED DRIP.
--- NOTE | 2019-01-20 14:22 | NUR ---
PICC LINE RN HERE TO INSERT MIDLINE TO PATIENT'S LEFT UPPER ARM. Addendum: 01/21/19 at 1127 by Cheko Macias RN PICC LINE RN CAME AT [id number]
--- NOTE | 2019-01-20 14:24 | NUR ---
PATIENT'S DAUGHTER HERE, DR. PIERRE IS HERE TO DISCUSS INSERTION OF PICC LINE. RECEIVED CONSENT FROM DAUGHTER TO PLACE A PICC LINE IN PATIENT'S LEFT UPPER ARM AND D/C THE RIGHT UPPER ARM PICC LINE.
[2019-01-20] MEDS: DEXT 5% / NACL 0.45% 1,000 ML IV SCH (14:30)
[2019-01-20] MEDS ORDERED: HYDRAGUARD CREAM TP PRN (15:10)
[2019-01-20] MEDS ORDERED: Z-GUARD PASTE TP PRN (15:10)
[2019-01-20] MEDS ORDERED: THERAHONEY GEL 42.5 GM TP PRN (15:10)
--- NOTE | 2019-01-20 15:40 | NUR ---
01/20/19 RD INITIAL ASSESSMENT COMPLETED PLEASE REFER TO NUTRITION ASSESSMENT UNDER CARE ACTIVITY FOR ESTIMATED NUTRITIONAL NEEDS. 1. RECOMMEND NEPRO AT 40 ML/HR; START AT 10 ML/HR AND INCREASE BY 10 ML/HR Q6H -THIS WILL PROVIDE 960 ML OF VOLUME, 1728 KCAL, AND 77 GM OF PROTEIN; WHICH MEETS 85% OF ESTIMATED KCAL NEEDS AND 100% OF ESTIMATED PROTEIN NEEDS 2. RECOMMEND 170 ML Q4H FOR FREE WATER FLUSH 3. CONTINUE VITAMIN C AND ZINC FOR SACRAL ULCER 4. RD TO FOLLOW-UP 2-3 DAYS, HIGH RISK VICTOR MANUEL AYALA, RD
[2019-01-20] MEDS ORDERED: LACTULOSE 20 GM/30 ML UDC GT SCH (15:47)
--- NOTE | 2019-01-20 15:48 | NUR ---
PATIENT HAS BEEN SCREENED AND CATEGORIZED HIGH NUTRITION RISK. PATIENT WILL BE SEEN WITHIN 1-2 DAYS OF ADMISSION. 01/21/19-01/22/[address]
[2019-01-20] MEDS: NACL 0.9% IV SCH ×2 (15:50→22:26)
[2019-01-20] MEDS: [UNRECOGNIZED DRUG - OTHER] IV SCH ×2 (15:50→22:26)
[2019-01-20] MEDS: BLOOD GLUCOSE MONITORING 1 DEV DEV FS SCH ×2 (16:30→20:20)
--- NOTE | 2019-01-20 17:07 | NUR ---
PICC LINE RNLISETTE, INSERTED MIDLINE TO LEFT UPPER ARM, PATIENT TOLERATED PROCEDURE WELL. PICC LINE RN STATES OKAY TO USE PICC LINE
[2019-01-20] MEDS ORDERED: TOBRAMYCIN PER PHARMACY MC PRN (17:30)
[2019-01-20] MEDS: THIAMINE IV SCH (17:48)
[2019-01-20] MEDS: DEXTROSE 5% IV SCH (17:48)
[2019-01-20] MEDS: HYDROCORTISONE NA SUCC 100 MG/2 ML VIAL IV SCH (18:32)
--- NOTE | 2019-01-20 19:30 | NUR ---
RECEIVED REPORT FROM MORNING RN, CLAUDETTE, FOR CONTINUITY OF CARE. VS STABLE AT THIS TIME. PT RESPONDS TO PAIN. PERRL. AFEBRILE. FLACC 0. TRACH TO VENT A/C VC FIO2 28%. TV 400, R12, AND PEEP 5. LUNG SOUNDS CLEAR. RESPIRATIONS EVEN AND UNLABORED. S1+S2 HEARD. SR ON MONITOR. PULSES ARE PALPABLE. PT ON LEVOPHED DRIP AT 12MCG/MIN. ABDOMEN ROUND, SOFT AND NONDISTENDED. BS ACTIVE IN ALL QUADRANTS. GTUBE IN PLACE. COLOSTOMY EMPTY AT THIS TIME. FOELY CATHETER IN PLACE DRAINING CLEAR AND YELLOW URINE. RECEIVED PT WITH FEROZ PICC LINE AND LEFT UA MIDLINE. RECEIVED PT WITH D5 0.45% NS AT 100ML/HR. KEPT HOB AT 30 DEGREES. ALL SAFETY PRECAUTIONS ARE IN PLACE. WILL CONTINUE TO MONITOR PT.
--- NOTE | 2019-01-20 19:52 | NUR ---
PERFORMED ORAL CARE.
--- NOTE | 2019-01-20 19:52 | NUR ---
VENT CURRENTLY ON: VC 400, 12, +5, 30%. TX GIVEN WITH NO ADVERSE EFFECTS. AMBU BAG AT BEDSIDE. ALARMS ON AND AUDIBLE. VENT PLUGGED INTO RED OUTLET. NO DISTRESS NOTED AT THIS TIME. TRACH PATENT AND SECURE.
[2019-01-20] MEDS ORDERED: NOREPINEPHRINE 16 MG in DEXTROSE 5% 250 ML IV PRN (19:55)
--- NOTE | 2019-01-20 19:55 | NUR ---
FIO2 DECREASED FROM 30% TO 28%. SAO2 AFTER CHANGE IS 100%.
[2019-01-20] MEDS ORDERED: NOREPINEPHRINE 4 MG/4 ML VIAL IV ONE (20:03)
[2019-01-20 20:11] LABS: APPEARANCE,URINE CLEAR (CLEAR); BILIRUBIN,URINE NEGATIVE (NEGATIVE); BLOOD, URINE TRACE-I (NEGATIVE); COLOR,URINE YELLOW (YELLOW); LEUKOCYTE ESTERASE ,URINE 3+ (NEGATIVE); NITRITE, URINE NEGATIVE (NEGATIVE); PH,URINE 5.5 (5.0-9.0); UGLUCOSE NEGATIVE (NEGATIVE)
[2019-01-20] MEDS: TOPIRAMATE 25 MG TAB GT SCH (20:12)
[2019-01-20] MEDS: TOBRAMYCIN 80 MG in DEXTROSE 5% 100 ML IV SCH (20:12)
[2019-01-20] MEDS: levETIRAcetam 100 MG/ML ORASYR GT SCH (20:13)
[2019-01-20 20:26] LABS: RBC,URINE 0-5 /HPF (0-5); WBC,URINE >25 (MANY) /HPF (0-5)
[2019-01-20] MEDS: INSULIN LISPRO SLIDING SCALE 100 UNITS/ML VIAL SUBQ PRN (20:28)
[2019-01-20] MEDS ORDERED: levETIRAcetam 100 MG/ML ORASYR GT SCH (21:00)
[2019-01-20] MEDS: LINEZOLID 600MG PREMIX 300 ML IV SCH (21:02)
--- NOTE | 2019-01-20 22:15 | NUR ---
REMOVED PT'S FEROZ PICC LINE. CATHETER WAS INTACT AND SPECIMEN WAS COLLECTED FOR CULTURE. NO BLEEDING NOTED FROM INSERTION SITE. DRESSING WAS PUT IN PLACE. WILL CONTINUE TO MONITOR FOR ANY BLEEDING.
--- NOTE | 2019-01-20 23:24 | NUR ---
VS STABLE AT THIS TIME. RESPIRATIONS ARE EVEN AND UNLABORED. ALL SAFETY PRECAUTIONS ARE KEPT IN PLACE. WILL CONTINUE TO MONITOR PT.
[2019-01-21] VITALS (51 sets, daily range): BP systolic 109–148; BP diastolic 54–84
--- NOTE | 2019-01-21 | NUR ---
DR. HAYS AT BEDSIDE. UPDATED HIM REGARDING PT'S CONDITION. RECEIVED NO NEW ORDERS AT THIS TIME
[2019-01-21] MEDS: PIPER/TAZO 2.25GM/D5W PREMIX 50 ML IV SCH ×4 (00:15→17:07)
[2019-01-21] MEDS: HYDROCORTISONE NA SUCC 100 MG/2 ML VIAL IV SCH ×4 (00:16→17:07)
--- NOTE | 2019-01-21 00:25 | NUR ---
RECEIVED A CALL FROM LAB IN REGARDS OF THE TROPONIN ORDER. NEXT TROPONIN DUE AT 0215 AND CURRENT ORDER NEEDED TO BE CHANGED. WILL CALL RESIDENT DOCTOR.
--- NOTE | 2019-01-21 00:27 | NUR ---
CALLED DR. DOUGLAS TO NOTIFY REGARDING THE NEXT TROPONIN DUE. PER DR. DOUGLAS, DRAW IT WITH THE MORNING LABS. WILL NOTIFY LAB.
--- NOTE | 2019-01-21 00:44 | NUR ---
CALLED LAB AND SPOKE WITH TAYA. NOTIFIED THEM REGARDING THE TROPONIN ORDER.
[2019-01-21] MEDS: DEXT 5% / NACL 0.45% 1,000 ML IV SCH ×3 (00:54→21:30)
[2019-01-21] MEDS: Z-GUARD PASTE TP SCH ×2 (00:56→12:40)
[2019-01-21] MEDS ORDERED: HYDRAGUARD CREAM TP SCH (01:00)
[2019-01-21] MEDS: NACL 0.9% IV SCH ×4 (02:36→21:16)
[2019-01-21] MEDS: [UNRECOGNIZED DRUG - OTHER] IV SCH ×4 (02:36→21:16)
--- NOTE | 2019-01-21 02:40 | NUR ---
VS STABLE. NO CHANGE IN PT'S CONDITION. RESPIRATIONS ARE EVEN AND UNLABORED. FLACC 0. SR ON MONITOR. WILL CONTINUE TO TITRATE DOWN LEVOPHED TOLERATED BY PT. PT TURNED AND REPOSITIONED. TOLERATED BEING TURNED WELL.
[2019-01-21] MEDS: THIAMINE IV SCH ×2 (03:48→16:07)
[2019-01-21] MEDS: DEXTROSE 5% IV SCH ×2 (03:48→16:07)
--- NOTE | 2019-01-21 04:00 | NUR ---
STARTED PT ON TUBE FEEDING. NEPRO STARTED AT 10ML/HR. WILL INCREASE ORDERED.
--- NOTE | 2019-01-21 04:45 | NUR ---
PM CARE PROVIDED TO PT. VAP AND WHITMORE CATHETER CARE DONE. KEPT HOB AT 30 DEGREES. ALL SAFETY PRECAUTIONS ARE STILL IN PLACE. PT HAS ADEQUATE URINE OUTPUT. NO CHANGE IN VS. RESPIRATIONS REMAIN EVEN AND UNLABORED. WILL CONTINUE TO MONITOR PT.
--- NOTE | 2019-01-21 05:58 | NUR ---
PERFORMED ORAL CARE.
[2019-01-21] MEDS: LEVOTHYROXINE 0.075 MG TAB GT SCH (06:28)
[2019-01-21 06:35] LABS: BASOPHILS % (AUTO) 0.3 % (0.0-2.0); EOSINOPHILS # (AUTO) 0.2 K/uL (0-0.4); EOSINOPHILS % (AUTO) 1.2 % (0.0-4.0); HEMATOCRIT 36.4 % (36-48); HEMOGLOBIN 11.3 g/dL (12.0-16.0); LYMPHOCYTES # (AUTO) 0.6 K/uL (2.5-16.5); LYMPHOCYTES % (AUTO) 4.5 % (20.5-51.1); MEAN CORPUSCULAR HEMOGLOBIN 28 pg (27-31); MEAN CORPUSCULAR HGB CONC 31 g/dL (33-37); MONOCYTES # (AUTO) 0.3 K/uL (0.8-1.0); MONOCYTES % (AUTO) 2.4 % (1.7-9.3); NEUTROPHILS # (AUTO) 12.1 K/uL (1.8-7.7); NEUTROPHILS % (AUTO) 91.6 % (42.2-75.2); PLATELET COUNT (AUTO) 204 K/uL (140-450); RED BLOOD CELL COUNT(AUTO) 4.09 MIL/uL (4.20-5.40); RED CELL DISTRIBUTION WIDTH 18.7 % (11.6-13.7); WHITE BLOOD COUNT (AUTO) 13.3 K/uL (4.8-10.8)
[2019-01-21 06:37] LABS: MAGNESIUM 3.2 mg/dL (1.8-2.4); PHOSPHORUS 3.9 mg/dL (2.5-4.9)
[2019-01-21] MEDS: BLOOD GLUCOSE MONITORING 1 DEV DEV FS SCH ×4 (06:40→21:15)
[2019-01-21] MEDS: INSULIN LISPRO SLIDING SCALE 100 UNITS/ML VIAL SUBQ PRN (06:40)
[2019-01-21 06:42] LABS: ANION GAP 18.6 (8-16); CARBON DIOXIDE 19.1 mmol/L (21-32); CREATININE 2.1 mg/dL (0.6-1.3); POTASSIUM 3.7 mmol/L (3.5-5.1)
--- NOTE | 2019-01-21 07:09 | NUR ---
RECEIVED BEDSIDE REPORT FROM CONTACT CENTER PROFESSIONAL RN, MARYLU, FOR CONTINUITY OF CARE. PATIENT IS AAOX2, ABLE TO MAKE NEEDS KNOWN AND FOLLOWS SIMPLE COMMANDS. PATIENT SKIN IS WARM AND DRY, NOT INTACT, SHE HAS PRESSURE INJURY TO SACRAL, RIGHT BUTTOCKS AND LEFT HIP. PATIENT HAS MIDLINE PERIPHERAL IV, ASYMPTOMATIC AND PATENT. SHE IS TRACH TO VENT, BREATHING EVEN AND UNLABORED. 1ST DEGREE HB ON MONITOR, DENIES ANY PAIN AT THIS TIME. PATIENT HAS GTUBE IN PLACE TO TUBE FEEDING. WHITMORE CATHETER IN PLACE TO CLEAR YELLOW URINE. HOB IS 35 DEGREES, BED LOCKED. SAFETY PRECAUTIONS AND ALARMS ASSESSED AND ENFORCED. NO SIGNS OF DISTRESS NOTED. WILL CONTINUE TO MONITOR
--- NOTE | 2019-01-21 07:15 | NUR ---
REPORT GIVEN TO MORNING RN, CLAUDETTE, FOR CONTINUITY OF CARE. VS STABLE AT THIS TIME.
[2019-01-21 07:26] LABS: HEPATITIS A ANTIBODY IGM Negative (Negative); HEPATITIS B CORE AB TOTAL Negative (Negative); HEPATITIS B SURFACE ANTIBODY Non Reactive (.); HEPATITIS B SURFACE ANTIGEN Negative (Negative)
[2019-01-21] MEDS: ALBUTEROL SULFATE/IPRATROPIU 3 ML SOL IH SCH ×3 (07:50→20:07)
--- NOTE | 2019-01-21 07:51 | NUR ---
RCV'D PT ON VENTILATOR WITH CHARTED SETTINGS. PT IS TRACHED WITH SHILEY 6. TRACH IS IN PLACE AND SECURED. CUFF PRESSURE IS 28 CMH2O. VENT IS CONNECTED TO RED OUTLET. ALARMS AUDIBLE. AMBU BAG AT BEDSIDE. NO SOB OR DISTRESS NOTED. PT IS ASLEEP COMFORTABLY. NO SOB OR DISTRESS NOTED. WILL CONTINUE TO MONITOR.
[2019-01-21] MEDS ORDERED: NON-FORMULARY ITEM (Multivitamin-Min/Iron/FA/Vit K (Multi-Day Plus Minerals Tablet) 1 TAB) GT SCH (08:00)
[2019-01-21] MEDS ORDERED: HYDROXYCHLOROQUINE 200 MG TAB GT SCH (08:00)
[2019-01-21] MEDS ORDERED: ASCORBIC ACID 500 MG TAB GT SCH (08:00)
[2019-01-21] MEDS ORDERED: ENOXAPARIN 40 MG/0.4 ML SYR SUBQ SCH (08:00)
[2019-01-21] MEDS: MULTIVITAMIN/MINERALS 15 ML UDBTL GT SCH (08:18)
[2019-01-21] MEDS: levETIRAcetam 100 MG/ML ORASYR GT SCH ×2 (08:18→21:15)
[2019-01-21] MEDS: LACTULOSE 20 GM/30 ML UDC GT SCH (08:18)
[2019-01-21] MEDS: GABAPENTIN 300 MG CAP GT SCH (08:18)
[2019-01-21] MEDS: TOPIRAMATE 25 MG TAB GT SCH ×2 (08:20→21:31)
[2019-01-21] MEDS: HYDROXYCHLOROQUINE 200 MG TAB GT SCH (08:20)
[2019-01-21] MEDS: SERTRALINE 50 MG TAB GT SCH (08:20)
[2019-01-21] MEDS: ZINC SULF 220 MG CAP GT SCH (08:20)
[2019-01-21] MEDS: PANTOPRAZOLE 40 MG INJ VIAL IVP SCH (08:20)
[2019-01-21] MEDS: LINEZOLID 600MG PREMIX 300 ML IV SCH ×2 (08:28→21:16)
[2019-01-21] MEDS: HYDRAGUARD CREAM TP SCH (08:29)
--- NOTE | 2019-01-21 08:45 | NUR ---
ADMINISTERED SCHEDULED MEDS ORDERED PATIENT TOLERATED WELL.
[2019-01-21] MEDS ORDERED: LACTULOSE 20 GM/30 ML UDC PO SCH (09:00)
[2019-01-21] MEDS ORDERED: LORATADINE 10 MG TAB PO SCH (09:00)
[2019-01-21] MEDS ORDERED: ENOXAPARIN 30 MG/0.3 ML SYR SUBQ SCH (09:00)
[2019-01-21] MEDS: CLINICAL MONITORING MC SCH (09:00)
[2019-01-21] MEDS ORDERED: LOSARTAN 25 MG TAB GT SCH (09:00)
[2019-01-21] MEDS ORDERED: LOSARTAN POTASSIUM 12.5 MG PO SCH (09:00)
[2019-01-21] MEDS ORDERED: LACTULOSE 20 GM/30 ML UDC GT SCH (09:00)
--- NOTE | 2019-01-21 10:07 | NUR ---
DECREASED PT'S FIO2 TO 24% SPO2 100%. WILL CONTINUE TO MONITOR.
--- NOTE | 2019-01-21 10:30 | NUR ---
WINDOWS SOFTWARE DEVELOPER AT BEDSIDE TO EVALUATE PATIENT'S WOUNDS.
[2019-01-21] MEDS: traMADol 50 MG TAB GT PRN (10:32)
--- NOTE | 2019-01-21 10:35 | NUR ---
PATIENT COMPLAINING OF PAIN /10, ADMINISTERED PRN ULTRAM VIA GTUBE. PATIENT TOLERATED WELL.
--- NOTE | 2019-01-21 11:00 | NUR ---
WOUND CARE EVALUATION NOTES: REASON FOR EVALUATION: MULTIPLE PRESSURE INJURIES SKIN ASSESSMENT DONE ON THIS 48 Y/O FEMALE PATIENT FROM [facility] TO [facility], WITH INITIAL DIAGNOSIS OF AMS. PAST MEDICAL HISTORY INCLUDE TRACH TO VENT, LUPUS, MUSCULAR DYSTROPHY, DERMATOMYOSITIS, DM, CHF, GT, LEFT COLOSTOMY, AND MULTIPLE PRESSURE INJURIES. ALL ABOVE INFORMATION WAS OBTAINED FROM THE ADMISSION H&P. SKIN WARM TO TOUCH, TOENAILS ARE SHORT AND THICKENED, R/L UPPER EXTREMITIES SHOULDERS AND ELBOWS STIFFNESS BLE NO HAIR GROWTH, BILATERAL PEDAL PULSES PRESENT AND NORMAL FEET ARE COLD TO TOUCH. CLEAR MUCUS DISCHARGE FROM ANAL/VAGINAL AREAS DURING SKIN ASSESSMENT. NEEDS MAX ASSISTANCE IN TURNING. PLAN OF CARE DISCUSSED WITH PRIMARY RN AND PT. INTEGUMENTARY: -TRACH SITE SAMIR-STOMA SKIN DRY INTACT -MID ABD, GT SITE SAMIR-STOMA SKIN DRY INTACT. -LLQ ABD COLOSTOMY SAMIR-STOMA SKIN DRY INTACT, FUNCTIONING. -SACRALCOCCYX PRESSURE INJURY STAGE 4, 2.5X6.5X0.5 CM , WOUND BED IS CLEAN ,RED IN COLOR, 100% GRANULATING TISSUE, NO ODOR AFTER CLEANING, SMALL AMOUNT SEROSANGUINEOUS DRAINAGE, SAMIR WOUND SKIN INTACT WITH RE-EPITHELIUM TISSUE. -LEFT HIP PRESSURE INJURY STAGE 4, 3X2X2 CM WITH UNDERMINING AROUND THE CLOCK WITH DEEPEST TO 7 O�CLOCK 2.5 CM, WOUND BED IS CLEAN, PINK IN COLOR, 100% GRANULATING TISSUE, NO ODOR AFTER CLEANING, SMALL AMOUNT SEROSANGUINEOUS DRAINAGE, SAMIR WOUND SKIN INTACT WITH PERIWOUND SKIN PALE PINK IN COLOR. WOUND EDGE IS WELL DEFINED. -RIGHT HIP PREVIOUS PRESSURE INJURY WITH UN-KNOW STAGE AT REMODELING STAGE, SAMIR-WOUND SKIN MACERATED, 3X4CM PALE PINK SCAR TISSUE -MAD TO PERIANAL DENUDED SKIN 2X3.5 CM SUPERFICIAL DEPTH -HEALED SCAR TO RIGHT THIGH -RIGHT / LEFT HEEL BLANCHABLE REDNESS RECOMMENDATIONS: -APPLY HYDRAGUARD TO BILATERAL UPPER ARMS AND LOWER EXTREMITIES BID AND LEAVE IT OPEN TO AIR -CLEANSE LEFT HIP (TROCHANTER) AND SACRACOCCYX PRESSURE INJURIES WITH NS. PAT DRY, APPLY THERAHONEY GEL AND ADAPTIC DRESSING TO WOUND BED, APPLY Z-GUARD TO SACRALCOCCYX SAMIR WOUND SKIN, COVER WITH DRY DRESSING QD AND PRN IF SOILING. -APPLY Z-GUARD TO RIGHT HIP PREVIOUS PRESSURE INJURY HEALING SCAR SAMIR-WOUND SKIN COVER WITH OPTIFOAM QD AND PRN IF SOILING. -TURN AND REPOSITION PATIENT Q 2H OFFLOAD LEFT AND RIGHT HIPS -ASSESS AND MONITOR SKIN CONDITION DURING POSITION CHANGE, PLEASE PAY ATTENTION TO HIPS AND SACRALCOCCYX -OFFLOAD BILATERAL HEELS BY PLACING PILLOWS UNDER CALVES AT ALL TIMES, UNLESS OTHERWISE CONTRAINDICATED -PRESSURE REDISTRIBUTION SURFACE THERAPY -KEEP SKIN CLEAN AND DRY AT ALL TIMES. RECOMMENDATIONS DISCUSSED WITH PRIMARY RN WILL FOLLOW UP PATIENT Q7-10 DAYS AND PRN. PLEASE CONTACT WOUND CARE NURSE FOR ANY QUESTIONS AND CHANGES IN SKIN CONDITION.
--- NOTE | 2019-01-21 12:00 | NUR ---
PATIENT'S FAMILY AT BEDSIDE.
[2019-01-21] MEDS: THERAHONEY GEL 42.5 GM TP SCH (12:40)
[2019-01-21] MEDS ORDERED: THERAHONEY GEL 42.5 GM TP SCH (13:00)
[2019-01-21] MEDS ORDERED: Z-GUARD PASTE TP SCH (13:00)
--- NOTE | 2019-01-21 13:35 | NUR ---
PATIENT COMPLAINING OF GENERALIZED PAIN, DR. PIERRE AWARE AND WILL ORDER DILAUDID.
[2019-01-21] MEDS ORDERED: HYDROmorphone 1 MG/ML AMP IVP SCH (14:00)
--- NOTE | 2019-01-21 14:15 | NUR ---
STUDENT NURSES AND INSTRUCTOR AT BEDSIDE TO REMOVE OLD WHITMORE CATHETER AND INSERT NEW WHITMORE CATHETER, 16 FR. PATIENT TOLERATED WELL. NO SIGNS OF DISTRESS NOTED.
--- NOTE | 2019-01-21 16:38 | NUR ---
PATIENT STATES MOUTH IS DRY AND IS ASKING FOR ICE CHIPS, CALLED RESIDENTS AND DR. BRAR STATES ITS OKAY FOR ICE CHIPS.
--- NOTE | 2019-01-21 17:30 | NUR ---
I attempted to meet with Patient during screen; Patient is unable to verbalize her needs or provide any information. Patient was sleeping at the time of visit. I attempted to meet with Patient's son Acosta Mccray at and to Daughter Amanda Mccray at . No response.
--- NOTE | 2019-01-21 17:35 | NUR ---
I Called [facility] at to discuss and gather Patient's information; I spoke to Vicenta from admissions stating that Patient is on a bed hold and is able to return to [facility] When she is clear and stable to return.
--- NOTE | 2019-01-21 18:12 | NUR ---
DR. HAYS IN TO SEE PATIENT
--- NOTE | 2019-01-21 19:10 | NUR ---
RECEIVED REPORT FROM DAY SHIFT JAY WILKINS. PT AAOX4, ON TRACH TO VENT WITH FOLLOWING SETTINGS. PT IS ABLE TO FOLLOW COMMANDS, ABLE TO MAKE NEEDS KNOWN. PT IS BEDBOUND WITH WHITMORE CATHETER IN PLACE DRAINING DARK RED URINE TO GRAVITY. SKIN IS NOT INTACT, SEE WOUND ASSESSMENT. VAGINAL DISCHARGE NOTED. PT WILL BE TRANSFERRED TO WOUND BED. PT HAS A DOUBLE LUMEN MIDLINE CATH TO LEFT UPPER ARM, ASYMPTOMATIC AND INTACT. NO SIGNS OF DISTRESS NOTED AT THIS TIME. DISCUSSED PLAN OF CARE WITH PT, PT NODDED UNDERSTANDING. PT DENIES PAIN. VITAL SIGNS STABLE. POSITIONED PT FOR COMFORT. BED IN LOWEST POSITION AND CALL LIGHT WITHIN REACH. WILL CONTINUE TO MONITOR. Addendum: 01/22/19 at 0027 by Malika Hawley RN DISREGARD, NOTE WAS NOT COMPLETE.
--- NOTE | 2019-01-21 19:11 | NUR ---
RECEIVED REPORT FROM DAY SHIFT RN CLAUDETTE. PT AAOX4, ON TRACH TO VENT WITH FIO2 AT 24% AND VT 400. PT IS ABLE TO FOLLOW COMMANDS, ABLE TO MAKE NEEDS KNOWN. PT IS BEDBOUND WITH WHITMORE CATHETER IN PLACE DRAINING DARK RED URINE TO GRAVITY. SKIN IS NOT INTACT, SEE WOUND ASSESSMENT. VAGINAL DISCHARGE NOTED. PT WILL BE TRANSFERRED TO WOUND BED. PT HAS A DOUBLE LUMEN MIDLINE CATH TO LEFT UPPER ARM, ASYMPTOMATIC AND INTACT. NO SIGNS OF DISTRESS NOTED AT THIS TIME. DISCUSSED PLAN OF CARE WITH PT, PT NODDED UNDERSTANDING. PT DENIES PAIN. VITAL SIGNS STABLE. POSITIONED PT FOR COMFORT. BED IN LOWEST POSITION AND CALL LIGHT WITHIN REACH. WILL CONTINUE TO MONITOR.
--- NOTE | 2019-01-21 21:32 | NUR ---
ADMINISTERED SCHEDULED MEDICATIONS, FLUSHED WITH WATER AFTER EACH MEDICATION AND AT THE END OF LAST MEDICATION, PT TOLERATED WELL. NO INSULIN COVERAGE NEEDED.
[2019-01-22] VITALS (19 sets, daily range): BP systolic 106–158; BP diastolic 49–79
--- NOTE | 2019-01-22 | NUR ---
VITAL SIGNS STABLE, DENIES PAIN. NO SIGNS OF DISTRESS NOTED. POSITIONED PT FOR COMFORT. BED IN LOWEST POSITION AND CALL LIGHT WITHIN REACH. WILL CONTINUE TO MONITOR.
[2019-01-22] MEDS: HYDROCORTISONE NA SUCC 100 MG/2 ML VIAL IV SCH ×3 (00:14→12:48)
[2019-01-22] MEDS: PIPER/TAZO 2.25GM/D5W PREMIX 50 ML IV SCH ×4 (00:14→17:06)
[2019-01-22] MEDS: Z-GUARD PASTE TP SCH ×2 (00:14→13:12)
[2019-01-22] MEDS: NACL 0.9% IV SCH ×2 (02:53→09:24)
[2019-01-22] MEDS: [UNRECOGNIZED DRUG - OTHER] IV SCH ×2 (02:53→09:24)
[2019-01-22] MEDS ORDERED: NACL 0.9% 500 ML IV SCH (04:10)
[2019-01-22] MEDS ORDERED: METOPROLOL 5 MG/5 ML VIAL IV SCH (04:30)
[2019-01-22] MEDS: THIAMINE IV SCH ×2 (04:52→16:26)
[2019-01-22] MEDS: DEXTROSE 5% IV SCH ×2 (04:52→16:26)
--- NOTE | 2019-01-22 05:05 | NUR ---
INFORMED DR DOUGLAS PT WANTED SWALLOW EVALUATION.
[2019-01-22] MEDS: LEVOTHYROXINE 0.075 MG TAB GT SCH (06:01)
[2019-01-22] MEDS: DEXT 5% / NACL 0.45% 1,000 ML IV SCH ×3 (06:02→21:33)
[2019-01-22] MEDS: BLOOD GLUCOSE MONITORING 1 DEV DEV FS SCH ×4 (06:11→21:26)
[2019-01-22] MEDS: ACETAMINOPHEN 650 MG/20.3 ML UDC GT PRN ×2 (06:13→07:49)
--- NOTE | 2019-01-22 06:14 | NUR ---
ADMINISTERED SCHEDULED MEDICATIONS PLUS TYLENOL FOR MILD PAIN, FLUSHED WITH WATER AFTER EACH MEDICATION AND AT THE END OF LAST MEDICATION, PT TOLERATED WELL. NO INSULIN COVERAGE NEEDED.
--- NOTE | 2019-01-22 07:26 | NUR ---
ENDORSED PT TO DAY SHIFT RN RAYMON FOR CONTINUITY OF CARE. PT IN STABLE CONDITION.
--- NOTE | 2019-01-22 07:30 | NUR ---
RECEIVED PATIENT ON BED.TRACHE TO VENT.PT TOLERATING VENT SETTING.VS STABLE .WHITMORE TO GRAVITY WITH DARK URINE OUTPUT .VAGINAL DRAINAGE LARGE IN AMOUNT YELLOWISH .PER RN LAST NIGHT HAD ALOT OF VAGINAL DRAINAGE TOO.RESIDENT MADE AWARE.LEFT UPPER IV PATENT AND INTACT.NO SIGNS OF INFILTRATION.
[2019-01-22] MEDS: LORazepam 2 MG/ML VIAL IM/IVP PRN (07:52)
[2019-01-22] MEDS: ALBUTEROL SULFATE/IPRATROPIU 3 ML SOL IH SCH ×3 (08:15→20:01)
[2019-01-22] MEDS: ZINC SULF 220 MG CAP GT SCH (09:00)
[2019-01-22] MEDS: TOPIRAMATE 25 MG TAB GT SCH ×2 (09:00→21:00)
[2019-01-22] MEDS: MULTIVITAMIN/MINERALS 15 ML UDBTL GT SCH (09:05)
[2019-01-22] MEDS: levETIRAcetam 100 MG/ML ORASYR GT SCH ×2 (09:06→21:19)
[2019-01-22] MEDS: GABAPENTIN 300 MG CAP GT SCH (09:06)
[2019-01-22] MEDS: LACTULOSE 20 GM/30 ML UDC GT SCH (09:06)
[2019-01-22] MEDS: SERTRALINE 50 MG TAB GT SCH (09:07)
[2019-01-22] MEDS: PANTOPRAZOLE 40 MG INJ VIAL IVP SCH (09:07)
[2019-01-22] MEDS: CLINICAL MONITORING MC SCH (09:08)
[2019-01-22] MEDS: HYDRAGUARD CREAM TP SCH (09:09)
[2019-01-22] MEDS: LINEZOLID 600MG PREMIX 300 ML IV SCH (09:13)
[2019-01-22] MEDS: HYDROXYCHLOROQUINE 200 MG TAB GT SCH (09:24)
[2019-01-22] MEDS: TOBRAMYCIN 80 MG in DEXTROSE 5% 100 ML IV SCH (09:25)
--- NOTE | 2019-01-22 11:30 | NUR ---
DR BRAR MADE AWARE RIGHT FOOT SWOLLEN AND WARM TO TOUCH.PULSE NORMAL .PER MD WILL ORDER ULTRASOUND.
[2019-01-22 11:57] LABS: BASOPHILS % (AUTO) 0.2 % (0.0-2.0); HEMATOCRIT 31.7 % (36-48); HEMOGLOBIN 9.7 g/dL (12.0-16.0); LYMPHOCYTES # (AUTO) 0.6 K/uL (2.5-16.5); LYMPHOCYTES % (AUTO) 7.2 % (20.5-51.1); MEAN CORPUSCULAR HEMOGLOBIN 28 pg (27-31); MEAN CORPUSCULAR HGB CONC 31 g/dL (33-37); MEAN CORPUSCULAR VOLUME 90.5 fL (80-94); MONOCYTES # (AUTO) 0.4 K/uL (0.8-1.0); MONOCYTES % (AUTO) 4.5 % (1.7-9.3); NEUTROPHILS # (AUTO) 7.3 K/uL (1.8-7.7); NEUTROPHILS % (AUTO) 88.1 % (42.2-75.2); PLATELET COUNT (AUTO) 158 K/uL (140-450); RED BLOOD CELL COUNT(AUTO) 3.51 MIL/uL (4.20-5.40); RED CELL DISTRIBUTION WIDTH 18.5 % (11.6-13.7); WHITE BLOOD COUNT (AUTO) 8.3 K/uL (4.8-10.8)
[2019-01-22 12:10] LABS: ANION GAP 16.6 (8-16); CARBON DIOXIDE 17.4 mmol/L (21-32); CREATININE 1.2 mg/dL (0.6-1.3)
[2019-01-22 12:13] LABS: MAGNESIUM 2.5 mg/dL (1.8-2.4); PHOSPHORUS 2.4 mg/dL (2.5-4.9)
[2019-01-22] MEDS ORDERED: POTASSIUM CHLORIDE 20% 40 MEQ/15 ML UDC GT SCH ×2 (12:33→19:00)
[2019-01-22] MEDS: KCL 20 MEQ/WATER INJ PREMIX 200 ML IV SCH ×2 (12:50→15:00)
--- NOTE | 2019-01-22 12:50 | NUR ---
01/22/19 RD FOLLOW UP COMPLETED PLEASE REFER TO NUTRITION PROGRESS NOTE UNDER CARE ACTIVITY FOR ESTIMATED NUTRITION NEEDS. RD RECOMMENDATIONS: 1. RECOMMEND NEPRO AT 40 ML/HR; START AT 10 ML/HR AND INCREASE BY 10 ML/HR Q6H -THIS WILL PROVIDE 960 ML OF VOLUME, 1728 KCAL, AND 77 GM OF PROTEIN; WHICH MEETS 85% OF ESTIMATED KCAL NEEDS AND 100% OF ESTIMATED PROTEIN NEEDS 2. RECOMMEND 170 ML Q4H FOR FREE WATER FLUSH 3. CONTINUE MVI AND ZINC SULFATE FOR WOUND HEALING. 4. RD TO FOLLOW-UP 2-3 DAYS, HIGH RISK BUBBA MAYER, RD
[2019-01-22] MEDS: traMADol 50 MG TAB GT PRN (12:57)
[2019-01-22] MEDS: THERAHONEY GEL 42.5 GM TP SCH (13:11)
--- NOTE | 2019-01-22 13:30 | NUR ---
PT VOMITTED LARGE IN AMOUNT,BROWNISH IN COLOR.FEEDING HELD .DR BRAR MADE AWARE AND AGRRED TO HOLD FEEDING.PT IS ALERT AND PUT UPRIGHT.
--- NOTE | 2019-01-22 14:00 | NUR ---
COLOSTOMY BAG LEAKING .CHANGED THE BAG .COLOSTOMY PINK IN COLOR.
--- NOTE | 2019-01-22 16:03 | NUR ---
NO VOMITTING NOTED.NO RESIDUAL NOTED.FEEDING STILL ON HOLD NO FURTHER ORDER FROM .
--- NOTE | 2019-01-22 16:10 | NUR ---
PT AWAKE IN BED NOT IN ANY DISTRESS. PT STATES SHE DOES NOT NEED TO BE SUCTIONED AT THIS TIME. PT NOT IN ANY DISTRESS. WILL CONTINUE TO MONITOR.
[2019-01-22 17:51] LABS: ANION GAP 16.4 (8-16); CARBON DIOXIDE 17.5 mmol/L (21-32)
--- NOTE | 2019-01-22 17:55 | NUR ---
AIRWAY REMAINS SECURE WITH A PATENT AIRWAY. PT AWAKE AND ALERT IN BED NOT IN ANY DISTRESS. VENT ALARMS ON AND FUNCTIONING.
--- NOTE | 2019-01-22 18:00 | NUR ---
DR PNIEDA AWARE URINE OUTPUT IS 200 ML/H Addendum: 01/22/19 at 2011 by Meron Merida RN RN CORRECTION MADE AWARE URINE OUTPUT IS 200 ML TOTAL FOR 12 HOUR SHIFT NOT 200 ML/H
[2019-01-22 18:04] LABS: POTASSIUM 2.9 mmol/L (3.5-5.1)
--- NOTE | 2019-01-22 18:22 | NUR ---
AJ DAUGHTER -NOTIFIED OF TRANSFER . UNAVAILABLE.
[2019-01-22] MEDS ORDERED: NACL 0.45% 1,000 ML IV SCH (18:40)
--- NOTE | 2019-01-22 18:40 | NUR ---
PER DR PINEDA HOLD FEEDING TILL FURTHER ORDER.
--- NOTE | 2019-01-22 18:46 | NUR ---
RN TRIED TO GIVE REPORT BUT THERE IS NO NURSE YET TO GET REPORT AND IS COMING AT 1900 .FOREST EXAMINER MADE AWARE.
[2019-01-22] MEDS ORDERED: KCL 20 MEQ/WATER INJ PREMIX 200 ML IV SCH (19:00)
--- NOTE | 2019-01-22 19:15 | NUR ---
REPORT GIVEN TO JULIETTE THOMPSNO.PT IS NOT IN ANY DISTRESS.
--- NOTE | 2019-01-22 19:16 | NUR ---
RECEIVED REPORT FROM JAY ENNIS.
--- NOTE | 2019-01-22 19:28 | NUR ---
PT ARRIVED TO UNIT. PT ALERT AND AWAKE, APHASIC ON TRACH TO VENT WITH FIO2 AT 24% AND VT 400. PT IS ABLE TO FOLLOW COMMANDS, ABLE TO MAKE NEEDS KNOWN. PT IS BEDBOUND WITH WHITMORE CATHETER IN PLACE DRAINING DARK RED/ALMOST BROWN URINE WITH CLOTS TO GRAVITY. SKIN IS NOT INTACT, SEE WOUND ASSESSMENT. LARGE AMOUNT OF VAGINAL DISCHARGE NOTED. PT HAS A DOUBLE LUMEN MIDLINE CATH TO LEFT UPPER ARM, ASYMPTOMATIC AND INTACT. NO SIGNS OF DISTRESS NOTED AT THIS TIME. DISCUSSED PLAN OF CARE WITH PT, PT NODDED UNDERSTANDING. PT DENIES PAIN. VITAL SIGNS STABLE. POSITIONED PT FOR COMFORT. BED IN LOWEST POSITION AND CALL LIGHT WITHIN REACH. WILL CONTINUE TO MONITOR.
--- NOTE | 2019-01-22 20:58 | NUR ---
UNABLE TO GET ABG. DR VALLEJO AWARE.
[2019-01-22] MEDS ORDERED: TOBRAMYCIN 80 MG in DEXTROSE 5% 100 ML IV SCH (21:00)
--- NOTE | 2019-01-22 21:33 | NUR ---
ADMINISTERED SCHEDULED MEDICATIONS, PT TOLERATED WELL. ASKED DR VALLEJO IF I COULD HOLD HEPARIN BECAUSE PT IS STILL BLEEDING FROM 3 DIFFERENT INJECTION SITES AND THEY ARE SATURATING THE DRESSINGS WE PUT ON. DR SAID IT WAS OK TO HOLD BUT MAKE SURE SCD'S WERE IN PLACE. ALSO, PT REFUSED TOPAMAX.
[2019-01-23] VITALS (7 sets, daily range): BP systolic 92–128; BP diastolic 49–66
--- NOTE | 2019-01-23 | NUR ---
FLACC 0, NO SIGNS OF DISTRESS, PT RESTING. VITAL SIGNS STABLE. POSITIONED PT FOR COMFORT. BED IN LOWEST POSITION AND CALL LIGHT WITHIN REACH. WILL CONTINUE TO MONITOR.
[2019-01-23] MEDS: PIPER/TAZO 2.25GM/D5W PREMIX 50 ML IV SCH ×4 (00:51→18:34)
[2019-01-23] MEDS: Z-GUARD PASTE TP SCH ×2 (00:51→13:00)
--- NOTE | 2019-01-23 00:52 | NUR ---
ZOSYN IVPB STARTED. WILL CONTINUE TO MONITOR.
[2019-01-23] MEDS: DEXTROSE 5% IV SCH ×2 (04:08→16:00)
[2019-01-23] MEDS: THIAMINE IV SCH ×2 (04:08→16:00)
--- NOTE | 2019-01-23 04:10 | NUR ---
FLACC 0, NO SIGNS OF DISTRESS, PT RESTING. VITAL SIGNS STABLE. POSITIONED PT FOR COMFORT. BED IN LOWEST POSITION AND CALL LIGHT WITHIN REACH. WILL CONTINUE TO MONITOR. THIAMINE IV BAG WAS STARTED.
[2019-01-23] MEDS: LORazepam 2 MG/ML VIAL IM/IVP PRN (04:20)
--- NOTE | 2019-01-23 04:21 | NUR ---
VENT ALARMS WERE GOING OFF AND PT REQUESTED TO BE SUCTIONED, SUCTIONED PT BUT SHE WAS DRY AND WAS GETTING VERY ANXIOUS, SHE STARTED SAYING TO GIVE HER SOMETHING TO CALM DOWN. ASKED IF SHE WAS FEELING ANXIOUS BECAUSE SHE SHOULD TRY TO RELAX AND SHE SAID YES. I OFFERED ATIVAN AND PT SAID YES IF IT WOULD HELP HER CALM DOWN. CALLED RT ANTHONY AND TOLD HER WHAT WAS GOING ON AND SHE ADVISED TO TRY TO GET PT TO CALM DOWN. ADMINISTERED ATIVAN FOR ANXIETY ORDERED, PT TOLERATED WELL.
[2019-01-23] MEDS: BLOOD GLUCOSE MONITORING 1 DEV DEV FS SCH ×4 (06:03→21:00)
[2019-01-23] MEDS: LEVOTHYROXINE 0.075 MG TAB GT SCH (06:05)
--- NOTE | 2019-01-23 07:37 | NUR ---
ENDORSED PT TO DAY SHIFT JAY HANEY FOR CONTINUITY OF CARE. PT IN STABLE CONDITION.
--- NOTE | 2019-01-23 07:38 | NUR ---
GOT BEDSIDE REPORT FROM JAY SEGOVIA. PATIENT ON TELE MONITOR AND CONTACT PRECAUTIONS IN PLACE FOR MDRO, KLEBSIELLA, PSEUDOMONAS OF SPUTUM. FALL RISK PROTOCOL IN PLACE. L HIP ULCER, SACRAL ULCER, AND R HIP HEALED WOUND, DRESSINGS CLEAN DRY AND INTACT. MIDLINE IN L UA INFUSING D5 1/2 NS AT 70, LINE ASYMPTOMATIC PATENT AND INTACT. G TUBE IN PLACE, SWOOSH HEARD, AND SITE CLEAN AND DRY. COLOSTOMY BAG IN PLACE, CLEAN DRY AND INTACT. PATIENT WITH WHITMORE CATHETER. BED IN LOW POSITION, CALL LIGHT WITHIN REACH, SIDE RAILS X2 UP Addendum: 01/23/19 at 0816 by Hiwot Clemente RN TRACH TO VENT; SETTINGS FOLLOWS: 24% FIO2 VT 400 ML RATE 12/MIN FLOW 50 L/MIN PEEP 5
[2019-01-23] MEDS: ALBUTEROL SULFATE/IPRATROPIU 3 ML SOL IH SCH ×3 (08:24→18:55)
--- NOTE | 2019-01-23 08:24 | NUR ---
RECEIVED ON A [employer] CARESCAPE R860 VENTILATOR PLUGGED INTO RED OUTLET TOLERATING WELL WITHOUT ADVERSE REACTIONS NOTED TO A CHAPARRITA DCT #6 AIRWAY SECURED WITH A TAWANDA TRACH TIE CUFF PRESSURE CHECKED NOTED FREE STANDING PULSE OXIMETER/BLOOD PRESSURE AT BEDSIDE AMBU BAG NOTED AT HOB LOC AWAKE AND ALERT "MOUTHING WORDS" BREATH SOUNDS RHONCHI BILATERAL WITH GOOD CHEST RISE DEEP TRACHEAL SUCTION FOR MODERATE THIN YELLOW SECRETIONS AIRWAY PATENT
[2019-01-23 08:42] LABS: CARBON DIOXIDE 18.4 mmol/L (21-32); POTASSIUM 3.4 mmol/L (3.5-5.1)
[2019-01-23 08:48] LABS: BASOPHILS % (AUTO) 0.1 % (0.0-2.0); EOSINOPHILS % (AUTO) 0.2 % (0.0-4.0); HEMATOCRIT 28.6 % (36-48); HEMOGLOBIN 8.8 g/dL (12.0-16.0); LYMPHOCYTES # (AUTO) 1.4 K/uL (2.5-16.5); LYMPHOCYTES % (AUTO) 18.1 % (20.5-51.1); MEAN CORPUSCULAR HEMOGLOBIN 28 pg (27-31); MEAN CORPUSCULAR HGB CONC 31 g/dL (33-37); MEAN CORPUSCULAR VOLUME 89.5 fL (80-94); MONOCYTES # (AUTO) 0.4 K/uL (0.8-1.0); MONOCYTES % (AUTO) 4.9 % (1.7-9.3); NEUTROPHILS # (AUTO) 6.1 K/uL (1.8-7.7); NEUTROPHILS % (AUTO) 76.7 % (42.2-75.2); PLATELET COUNT (AUTO) 139 K/uL (140-450); RED CELL DISTRIBUTION WIDTH 17.7 % (11.6-13.7)
[2019-01-23] MEDS: LACTULOSE 20 GM/30 ML UDC GT SCH (08:52)
[2019-01-23] MEDS: levETIRAcetam 100 MG/ML ORASYR GT SCH ×2 (08:53→22:11)
[2019-01-23] MEDS: GABAPENTIN 300 MG CAP GT SCH (08:53)
[2019-01-23] MEDS: ZINC SULF 220 MG CAP GT SCH (08:53)
[2019-01-23] MEDS: HYDROXYCHLOROQUINE 200 MG TAB GT SCH (08:54)
[2019-01-23] MEDS: SERTRALINE 50 MG TAB GT SCH (08:55)
[2019-01-23] MEDS: TOPIRAMATE 25 MG TAB GT SCH ×2 (08:55→22:12)
[2019-01-23] MEDS: MULTIVITAMIN/MINERALS 15 ML UDBTL GT SCH (09:00)
[2019-01-23] MEDS: HYDRAGUARD CREAM TP SCH (09:00)
[2019-01-23 09:07] LABS: PHOSPHORUS 1.7 mg/dL (2.5-4.9)
--- NOTE | 2019-01-23 09:14 | NUR ---
ADMINISTERED SCHEDULED MEDS. PATIENT TOLERATED WELL
[2019-01-23 09:27] LABS: MAGNESIUM 2.1 mg/dL (1.8-2.4)
[2019-01-23] MEDS: CLINICAL MONITORING MC SCH (09:43)
--- NOTE | 2019-01-23 10:01 | NUR ---
RESTING WELL GOOD CHEST RISE DEEP TRACHEAL SUCTION FOR SMALL THIN PALE YELLOW SECRETIONS AIRWAY PATENT
[2019-01-23] MEDS ORDERED: MORPHINE SULFATE 2 MG/ML SYR IVP SCH (10:04)
--- NOTE | 2019-01-23 10:47 | NUR ---
REPOSITIONED PATIENT WITH PATIENT SERVICES SPECIALIST AND GAVE BED BATH. NO DISTRESS NOTED
[2019-01-23] MEDS: DEXT 5% / NACL 0.45% 1,000 ML IV SCH (11:13)
[2019-01-23] MEDS: traMADol 50 MG TAB GT PRN (12:31)
--- NOTE | 2019-01-23 12:47 | NUR ---
[id number] TRAMADOL PRN FOR MUSCLE SPASMS. PATIENT TOLERATED WELL
[2019-01-23] MEDS: THERAHONEY GEL 42.5 GM TP SCH (13:00)
--- NOTE | 2019-01-23 13:48 | NUR ---
LOC AWAKE AND ALERT NO SOB NOTED FAMILY AT BESIDE DEFLATED CUFF PRESSURE TO ALLOW PATIENT COMMUNICATION EXECUTIVE PRODUCER TO ATTEMPT HHN THERAPY, VENTILATOR AND PATIENT ASSESSMENT AT A LATER TIME Addendum: 01/23/19 at 1357 by Chalo Verma RT MEDINA/JAY NOTIFIED
--- NOTE | 2019-01-23 13:59 | NUR ---
FAMILY AT BEDSIDE. TRACH TO VENT, NO DISTRESS NOTED
[2019-01-23] MEDS ORDERED: SODIUM PHOSPHATE 15 MMOLE in NACL 0.9% 250 ML IV SCH (14:00)
--- NOTE | 2019-01-23 15:32 | NUR ---
CLEANSED PRESSURE ULCERS AND TURNED PATIENT TO R SIDE LYING POSITION. COLOSTOMY BAG CHANGED
[2019-01-23] MEDS: MORPHINE SULFATE 2 MG/ML SYR IVP PRN (16:08)
--- NOTE | 2019-01-23 16:21 | NUR ---
STABLE NO EVIDENCE OF PULMONARY DISTRESS NOTED GOOD CHEST RISE AIRWAY PATENT
--- NOTE | 2019-01-23 17:30 | NUR ---
NO APPARENT DISTRESS NOTED GOOD CHEST RISE DEEP TRACHEAL SUCTION FOR MODERATE THIN PALE YELLOW SECRETIONS AIRWAY PATENT
--- NOTE | 2019-01-23 18:34 | NUR ---
DAUGHTER AT BEDSIDE. CHANGED SOILED LINENS AND PLACED PILLOWS ON BOTH SIDES
--- NOTE | 2019-01-23 19:27 | NUR ---
GAVE BEDSIDE REPORT TO JAY SIDDIQUI. PATIENT ENDORSED IN STABLE CONDITION
--- NOTE | 2019-01-23 19:30 | NUR ---
RECEIVED PT FROM PATRICK RN PT AAOX3 FOLLOW COMMANDS ON HOB 30 DEGREE, TRACH TO VENT TV 400 , FIO2 24 PEEP 5 NOT SOB NOTED G TUBE PATENT, COLOSTOMY BAG EMPY, WHITMORE CATH IN PLACE AND BLOOD ON GENITAL MEATUS PICC LINE ON LEFT UA INITIAL ASSESSMENT DONE
--- NOTE | 2019-01-23 19:30 | NUR ---
RECEIVED PT FROM PATRICK THOMPSON PT AAOX
[2019-01-23] MEDS ORDERED: POTASSIUM CHLORIDE 20% 40 MEQ/15 ML UDC GT SCH (21:00)
--- NOTE | 2019-01-23 21:00 | NUR ---
BLOOD SUGAR TEST 74 ON TELMETRY SR NOT DISTRESS NOTED REPOSITIONED Q2H
--- NOTE | 2019-01-23 22:00 | NUR ---
A NEW WHITMORE CATH IS INSERTED AND PENDINT TO COLLECT URINE AND SENT TO LAB
[2019-01-24] VITALS (7 sets, daily range): BP systolic 91–132; BP diastolic 48–74
--- NOTE | 2019-01-24 | NUR ---
HOB 30 DEGREE ORAL CARE TAKEN WITH VAP KIT RESP THERAPY HAS BEEN GIVEN TX ORDE NOT SOB NOTED
[2019-01-24] MEDS: PIPER/TAZO 2.25GM/D5W PREMIX 50 ML IV SCH ×3 (00:04→17:00)
[2019-01-24] MEDS: MORPHINE SULFATE 2 MG/ML SYR IVP PRN ×2 (00:50→18:21)
[2019-01-24] MEDS: Z-GUARD PASTE TP SCH ×2 (01:00→12:03)
[2019-01-24 01:11] LABS: APPEARANCE,URINE CLOUDY (CLEAR); BILIRUBIN,URINE NEGATIVE (NEGATIVE); BLOOD, URINE 3+ (NEGATIVE); COLOR,URINE YELLOW (YELLOW); LEUKOCYTE ESTERASE ,URINE TRACE (NEGATIVE); NITRITE, URINE NEGATIVE (NEGATIVE); UGLUCOSE NEGATIVE (NEGATIVE)
[2019-01-24] MEDS: NACL 0.9% 1,000 ML IV SCH ×2 (01:45→14:15)
--- NOTE | 2019-01-24 02:00 | NUR ---
AFTER [facility]PA[facility] MEDIC GIVEN PT HAS BEEN SLEEPIN WELL QUIET NOT DISTRESS NOTED ON TELMETRY ST TRACH TO VENT REMAIN SAME SETTIN
[2019-01-24 02:44] LABS: RBC,URINE 0-5 /HPF (0-5); URINE AMORPHOUS URATE 2+ /HPF (None Seen); WBC,URINE 0-5 /HPF (0-5)
--- NOTE | 2019-01-24 04:00 | NUR ---
SPONGE BATH GIVEN LINEN CHANGED NOT DISTRESS NOTED GTUBE FEEDING WELL TOLERATEDTRACH TO VENT REMAIN SAME SETTING, NOT DISTRESS NOTED
[2019-01-24] MEDS: THIAMINE IV SCH (04:42)
[2019-01-24] MEDS: DEXTROSE 5% IV SCH (04:42)
[2019-01-24] MEDS: LEVOTHYROXINE 0.075 MG TAB GT SCH (05:57)
[2019-01-24] MEDS ORDERED: PIPER/TAZO 2.25GM/D5W PREMIX 50 ML IV SCH (06:00)
[2019-01-24] MEDS: BLOOD GLUCOSE MONITORING 1 DEV DEV FS SCH ×4 (06:51→21:38)
--- NOTE | 2019-01-24 06:52 | NUR ---
BLOOD SUGAR TEST 89 PT IS SUCTIONED NECESSARY ON TELE SR PT TRACH TO VENT REMAIN SAME SETTING , PT WILL BE ENDORSED TO; DAY SHIFT NURSE FOR CONTINUING PLAN OF CARE
[2019-01-24] MEDS: ALBUTEROL SULFATE/IPRATROPIU 3 ML SOL IH SCH ×3 (06:56→20:01)
--- NOTE | 2019-01-24 06:56 | NUR ---
RECEIVED ON A [employer] R860 VENTILATOR PLUGGED INTO RED OUTLET TOLERATING WELL WITHOUT INCIDENT TO A CHAPARRITA DCT #6 AIRWAY SECURED WITH A TAWANDA TRAC TIE CUFFPRESSURE CHECKED NOTED FREE STANDING PULSE OXIMETER/BP AT BEDSIDE AMBU BAG NOTED AT HOB LOC AWAKE AND ALERT "MOUTHING WORDS" GOOD CHEST RISE AIRWAY PATENT
--- NOTE | 2019-01-24 07:15 | NUR ---
RECEIVED BEDSIDE REPORT FROM JENN RN. TRACH TO VENT. FIO1 24 400 TV RATE 12 FLOW 60 PEEP 5 PMAX 40. PT GTUBE INFUSING PER MD ORDERS. PICC L UPPER ARM D5 1/2 @ 70 ML/H. PATENT, CLEAN, INTACT. SKIN DRY, INTACT. PT IN STABLE CONDITION. BED IN LOWEST POSITION. CALL LIGHT WITHIN REACH.
[2019-01-24 07:56] LABS: BASOPHILS % (AUTO) 0.1 % (0.0-2.0); EOSINOPHILS # (AUTO) 0.2 K/uL (0-0.4); EOSINOPHILS % (AUTO) 3.3 % (0.0-4.0); HEMATOCRIT 26.4 % (36-48); HEMOGLOBIN 8.3 g/dL (12.0-16.0); LYMPHOCYTES # (AUTO) 0.7 K/uL (2.5-16.5); LYMPHOCYTES % (AUTO) 9.8 % (20.5-51.1); MEAN CORPUSCULAR HEMOGLOBIN 28 pg (27-31); MEAN CORPUSCULAR HGB CONC 31 g/dL (33-37); MEAN CORPUSCULAR VOLUME 87.4 fL (80-94); MONOCYTES # (AUTO) 0.5 K/uL (0.8-1.0); MONOCYTES % (AUTO) 7.1 % (1.7-9.3); NEUTROPHILS # (AUTO) 5.3 K/uL (1.8-7.7); NEUTROPHILS % (AUTO) 79.7 % (42.2-75.2); PLATELET COUNT (AUTO) 110 K/uL (140-450); RED BLOOD CELL COUNT(AUTO) 3.02 MIL/uL (4.20-5.40); RED CELL DISTRIBUTION WIDTH 17.5 % (11.6-13.7); WHITE BLOOD COUNT (AUTO) 6.6 K/uL (4.8-10.8)
[2019-01-24 08:34] LABS: CARBON DIOXIDE 17.6 mmol/L (21-32); CREATININE 0.8 mg/dL (0.6-1.3); POTASSIUM 3.6 mmol/L (3.5-5.1)
[2019-01-24 08:43] LABS: MAGNESIUM 1.8 mg/dL (1.8-2.4); PHOSPHORUS 2.4 mg/dL (2.5-4.9)
--- NOTE | 2019-01-24 08:54 | NUR ---
FAXED INQUIRY TODAY TO [facility]. [phone] PHONE [phone]
[2019-01-24] MEDS: levETIRAcetam 100 MG/ML ORASYR GT SCH (09:38)
[2019-01-24] MEDS: LACTULOSE 20 GM/30 ML UDC GT SCH (09:39)
[2019-01-24] MEDS: GABAPENTIN 300 MG CAP GT SCH (09:39)
[2019-01-24] MEDS: SERTRALINE 50 MG TAB GT SCH (09:40)
[2019-01-24] MEDS: TOPIRAMATE 25 MG TAB GT SCH (09:41)
[2019-01-24] MEDS: HYDROXYCHLOROQUINE 200 MG TAB GT SCH (09:41)
[2019-01-24] MEDS: ZINC SULF 220 MG CAP GT SCH (09:41)
[2019-01-24] MEDS: MULTIVITAMIN/MINERALS 15 ML UDBTL GT SCH (09:42)
[2019-01-24] MEDS: CLINICAL MONITORING MC SCH (11:29)
[2019-01-24] MEDS: HYDRAGUARD CREAM TP SCH (11:29)
--- NOTE | 2019-01-24 11:42 | NUR ---
CALLED [facility] AND SPOKE WITH RODRIGO. SHE SAID SHE HAS NO FEMALE SUBACUTE BEDS. CALLED [facility] AND SPOKE WITH MADDY. NO SUBACUTE BEDS. CALLED [facility]. WAITING FOR CALL BACK. FAXED INFORMATION TO [facility]. RECEIVED CALL BACK FROM [facility]. THEY CAN TAKE THE PATIENT BACK LATER TODAY. I WILL CALL HER BACK.
[2019-01-24] MEDS: traMADol 50 MG TAB GT PRN (11:53)
--- NOTE | 2019-01-24 12:02 | NUR ---
SPOKE WITH ZULEYMA AT [facility]. NO SUBACUTE BEDS. CALLED [facility]. NO FEMALE BEDS. CALLED [facility], [phone]. AND SPOKE WITH CARROLL. SHE WILL CALL ME BACK.
[2019-01-24] MEDS: THERAHONEY GEL 42.5 GM TP SCH (12:03)
--- NOTE | 2019-01-24 12:05 | NUR ---
PATIENT COMPLAINS OF PAIN. TRAMADOL GIVEN PER MD ORDERS. WILL CONTINUE TO MONITOR.
--- NOTE | 2019-01-24 12:08 | NUR ---
S.T. BEDSIDE SWALLOW EVAL COMPLETED Please see report for details. Pt was seen at bedside, w/ size 6 trach tube, on vent (24% FiO2, PEEP 5, O2 Sat 100%), w/ HOB at 85 degrees. Initially, pt demonstrated difficulty tolerating being seated upright in addition to having trach cuff deflated simultaneously. She complained of feeling breathing difficulty. After 3 attempts, pt was able to tolerate sitting upright, trach cuff deflated. Pt was given P.O. trials of 2 oz. orange colored gelatin via 5 cc spoon boluses. Upon immediate deep suction, no evidence of orange-colored secretions observed. Recommend: 1) Primary source of nutrition via G-tube. Ice chips and gelatin (a.k.a Jello) for ORAL GRATIFICATION ONLY. 2) P.O. meds via g-tube only. 3) Strict aspiration precautions whenever P.O. oral gratification is given 4) Pt to be seated at 90 degree angle AND trach cuff DEFLATED during P.O. intake. Pt does not present with strong rehab potential and is at a very high risk for aspiration. Therefore, no further swallow tx is indicated at this time. DC to [facility]. D/w pt, JAY Mann and charge histotechnologist Alem results, recommendations, and risks of not deflating trach cuff completely or sitting pt fully upright for P.O. intake. All communicated understanding. Time [id number]
--- NOTE | 2019-01-24 12:10 | NUR ---
STABLE NO EVIDENCE OF PULMONARY DISTRESS NOTED GOOD CHEST RISE
--- NOTE | 2019-01-24 12:46 | NUR ---
PER CARROLL AT [facility], SHE ASKED THAT A PACKET BE SENT TO HER. FAXED INQUIRY TO [phone]
--- NOTE | 2019-01-24 14:00 | NUR ---
SPOKE WITH DR. PIERRE. I INFORMED HIM I CALLED [facility], NO BED AVAILABLE. FATEMEH IS IN [place], NO ANSWER YET. CARY FROM [facility] CALLED THE PATIENT CAN GO TO ROOM 27B UNDER . I INFORMED HER THE DISCHARGE IS NOT FOR TODAY.
--- NOTE | 2019-01-24 14:18 | NUR ---
DR. PIERRE SAID HE SPOKE WITH THE DAUGHTER. THEY SAID NO ON [facility]. I CALLED CARROLL AT [facility] AND INFORMED HER.
[2019-01-24] MEDS ORDERED: SODIUM PHOS / POTASSIUM PHOS 1 PKT PDR PEG SCH (15:00)
--- NOTE | 2019-01-24 17:02 | NUR ---
PATIENT LYING DOWN IN BED. NO DISTRESS NOTED. REPOSITIONED PATIENT. SCHEDULED MEDICATIONS DUE GIVEN. WILL CONTINUE TO MONITOR.
--- NOTE | 2019-01-24 17:13 | NUR ---
STABLE C/O BACK PAIN SHARI/RN NOTIFIES GOOD CHEST RISE DEEP TRACHEAL SUCTION FOR MEDIUM THIN MARQUES SECRETIONS AIRWAY PATENT
--- NOTE | 2019-01-24 19:25 | NUR ---
GAVE REPORT TO ASSISTANT MEN'S SOCCER COACH NURSE FOR CONTINUITY OF CARE. PATIENT IN STABLE CONDITION.
--- NOTE | 2019-01-24 19:26 | NUR ---
RECEIVED PT IN STABLE CONDITION FROM AM NURSE. AWAKE,ALERT ,ORIENTED X3. MUMBLES DUE TO TRACH TO VENT. O2 SAT 100 %. ON BEDREST. HOB ELEVATED 30DEGREES. WITH IVF INFUSING WELL ON THE LT UPPER ARM PICC LINE. GT CLAMPED AT THIS TIME. NPO FOR UROGRAM TONIGHT. WHITMORE CATH WITH BLOODY OUTPUT. IRRIGATED WITH 50 ML NS WHICH PT CAN ONLY TOLERATED . WITH SOME CLOTS BUT NO RESISTANCE NOTED. PRESSURE ULCERS WITH DRESSING ON SACRAL AREA, SINDY HIP. BED ON LOW POSITION. SIDE RAILS UP X2. FREQUENT ROUNDS NEEDED. CALL LIGHT PLACED WITHIN REACH. WILL CONTINUE TO MONITOR.
--- NOTE | 2019-01-24 20:09 | NUR ---
Received pt stable on vent support at documented settings, suctioned small amounts of thin white secretions, hhn tx given, tolerated well, no resp distress or SOB noted at this time, pt is awake/alert but somewhat confused about her location, Shiley 6 trach secured/patent/midline, alarms set and audible, ambu bag at bedside, vent plugged into red outlet, cont pulse ox on, will cont to monitor.
[2019-01-24] MEDS ORDERED: AMIKACIN PER PHARMACY MC PRN (20:55)
--- NOTE | 2019-01-24 20:58 | NUR ---
DR. HAYS CAME AND SEEN PT. WITH NEW ORDER TO START AMIKACIN IV PER PHARMACY. WILL FOLLOW UP.
--- NOTE | 2019-01-24 21:01 | NUR ---
CALLED CT DEPT AND ABLE TO TALKED TO PRINT LINE INSPECTOR. HE SAID CT UROGRAM WILL BE DONE AROUND 2300. PT TO STILL KEEP NPO.
--- NOTE | 2019-01-24 21:45 | NUR ---
CALLED CT DEPT AGAIN IF THEY CAN DO CT EARLIER FOR PT IS NPO BLOOD SUGAR ONLY 79. HE SAID BECAUSE HE IS SO BUSY HE CAN'T DO IT . HE WILL ENDORSE TO [facility] [employer] [facility] WHEN SHE COMES.
[2019-01-24] MEDS ORDERED: AMIKACIN 500 MG/2 ML VIAL IV ONE (22:30)
[2019-01-24] MEDS ORDERED: AMIKACIN 1,000 MG in DEXTROSE 5% 250 ML IV SCH (23:00)
--- NOTE | 2019-01-24 23:25 | NUR ---
AUTOMATIC TOE LASTERAKBAR DIOP. CHECKED THE PICC LINE AND ALSO THE CONSENT . WILL JUS FINISH THE ANTIBIOTICS AND WILL BRING PT TO CT DEPT WITH VENT AND MONITOR.
--- NOTE | 2019-01-24 23:55 | NUR ---
TO CT DEPT MOVED BY BED WITH RT,AND DIRECTOR ACCOUNT MANAGEMENT FOR CT UROGRAM WITH CONTRAST. PT IN STABLE CONDITION.
[2019-01-25] VITALS (12 sets, daily range): BP systolic 110–127; BP diastolic 60–86
--- NOTE | 2019-01-25 01:10 | NUR ---
BACK FROM CT. PT PLACED COMFORTABLY IN BED. CONNECTED ON VENT BY RT. O2 SAT 100%. WILL FOLLOW UP RESULT.
[2019-01-25] MEDS: PIPER/TAZO 2.25GM/D5W PREMIX 50 ML IV SCH ×5 (01:13→23:07)
[2019-01-25] MEDS: levETIRAcetam 100 MG/ML ORASYR GT SCH ×3 (01:14→21:00)
[2019-01-25] MEDS: ONDANSETRON 4 MG/2 ML VIAL IM/IVP PRN ×2 (01:14→11:10)
[2019-01-25] MEDS: TOPIRAMATE 25 MG TAB GT SCH ×3 (01:14→21:14)
--- NOTE | 2019-01-25 01:14 | NUR ---
PT C/O NAUSEA. MEDICATED WITH ZOFRAN . WILL CONTINUE TO MONITOR.
[2019-01-25] MEDS: SODIUM BICARBONATE 650 MG TAB GT SCH ×3 (01:15→21:15)
[2019-01-25] MEDS: Z-GUARD PASTE TP SCH ×2 (01:16→12:23)
--- NOTE | 2019-01-25 01:30 | NUR ---
GT FEEDING RESUMED AT 30 ML /HR. WILL MONITOR TOLERATION ON FEEDING.
--- NOTE | 2019-01-25 02:41 | NUR ---
GOT CRITICAL RESULT OF THE CT UROGRAM WITH CONTRAST . PAGED DR. DOUGLAS AND MADE AWARE OF THE RESULTS. NO NEW ORDER. WILL CONTINUE TO MONITOR.
[2019-01-25] MEDS: NACL 0.9% 1,000 ML IV SCH ×2 (02:45→15:15)
--- NOTE | 2019-01-25 05:00 | NUR ---
DR. DOUGLAS SAID TO PULL WHITNEY THE WHITMORE CATH A LITTLE BIT WHICH WAS DONE SLOWLY PT IS VERY SENSITIVE TO A LITTLE MOVEMENT. WILL MONITOR WHITMORE OUTPUT
[2019-01-25] MEDS: LEVOTHYROXINE 0.075 MG TAB GT SCH (05:35)
[2019-01-25] MEDS: MORPHINE SULFATE 2 MG/ML SYR IVP PRN ×3 (05:43→21:15)
[2019-01-25] MEDS: BLOOD GLUCOSE MONITORING 1 DEV DEV FS SCH ×4 (06:09→21:30)
--- NOTE | 2019-01-25 06:10 | NUR ---
BLOOD SUGAR THIS AM 91. WITH GT FEEDING INFUSING AT 40 ML /HR. NO RESIDUAL NOTED.
--- NOTE | 2019-01-25 06:42 | NUR ---
REFUSED BLOOD DRAW THIS AM. WILL COME BACK TO TRY AGAIN LATER.
[2019-01-25] MEDS: ALBUTEROL SULFATE/IPRATROPIU 3 ML SOL IH SCH ×3 (06:46→19:39)
--- NOTE | 2019-01-25 06:46 | NUR ---
rec'd pt on carescape vent settings ac12 vt 400 peep 5 fil2 24% alarms on and audible ambu bag at hob i\l tx given with duoneb 3ml with no adverse reaction post tx bx rhonchi bilaterally sxn pt moderate amt of thick white secretions, pt is trach with shiley 6 and skin integrity is intact, pt is awake and in pain rn clare notified
--- NOTE | 2019-01-25 07:00 | NUR ---
URINE OUTPUT ON WHITMORE CATH IS NOW CLEAR YELLOW ,NO BLOOD NOTED.
[2019-01-25] MEDS: traMADol 50 MG TAB GT PRN ×2 (07:01→17:53)
--- NOTE | 2019-01-25 07:28 | NUR ---
ENDORSED PT IN STABLE CONDITION TO AM NURSE FOR CONTINUITY OF CARE.
--- NOTE | 2019-01-25 07:29 | NUR ---
RECEIVED REPORT FROM STATUARY PAINTER NURSE. PATIENT LYING DOWN IN BED COMFORTABLY. NO DISTRESS NOTED. PAIN WITHIN TOLERABLE AT THIS TIME. AAOX3, CALM, COOPERATIVE, ABLE TO MOUTH WORDS BUT VENTILATED. LEFT UPPER MIDLINE NOTED, INFUSING IVF PER MD ORDERS. VENTILATOR SETTINGS FIO2:24, VT:500, RATE 12, FLOW 60, PEEP:5, PMAX 45. WHITMORE CATHETER IN PLACE, DRAINING YELLOW URINE. COLOSTOMY IN PLACE. HAS COCCYX ULCER, AND ON B/L HIPS. DRESSING IS DRY AND INTACT. SAFETY MEASURES IN PLACE, CALL LIGHT WITHIN REACH. WILL CONTINUE TO MONITOR.
[2019-01-25] MEDS ORDERED: FLUCONAZOLE 100 MG TAB GT SCH (09:09)
[2019-01-25 09:25] LABS: FOLIC ACID 13.2 ng/mL (>3.0)
[2019-01-25 09:49] LABS: BASOPHILS % (AUTO) 0.2 % (0.0-2.0); EOSINOPHILS # (AUTO) 0.5 K/uL (0-0.4); EOSINOPHILS % (AUTO) 5.1 % (0.0-4.0); HEMATOCRIT 28.4 % (36-48); HEMOGLOBIN 8.9 g/dL (12.0-16.0); LYMPHOCYTES # (AUTO) 0.6 K/uL (2.5-16.5); LYMPHOCYTES % (AUTO) 5.9 % (20.5-51.1); MEAN CORPUSCULAR HEMOGLOBIN 28 pg (27-31); MEAN CORPUSCULAR HGB CONC 32 g/dL (33-37); MEAN CORPUSCULAR VOLUME 88.1 fL (80-94); MONOCYTES # (AUTO) 0.4 K/uL (0.8-1.0); NEUTROPHILS # (AUTO) 8.3 K/uL (1.8-7.7); NEUTROPHILS % (AUTO) 84.8 % (42.2-75.2); PLATELET COUNT (AUTO) 116 K/uL (140-450); RED BLOOD CELL COUNT(AUTO) 3.22 MIL/uL (4.20-5.40); RED CELL DISTRIBUTION WIDTH 18.3 % (11.6-13.7); WHITE BLOOD COUNT (AUTO) 9.8 K/uL (4.8-10.8)
[2019-01-25] MEDS: LACTULOSE 20 GM/30 ML UDC GT SCH (09:56)
[2019-01-25] MEDS: MULTIVITAMIN/MINERALS 15 ML UDBTL GT SCH (09:57)
[2019-01-25 09:59] LABS: MAGNESIUM 1.6 mg/dL (1.8-2.4); PHOSPHORUS 2.4 mg/dL (2.5-4.9)
[2019-01-25] MEDS: GABAPENTIN 300 MG CAP GT SCH (09:59)
[2019-01-25] MEDS: SERTRALINE 50 MG TAB GT SCH (09:59)
[2019-01-25] MEDS: TAMSULOSIN 0.4 MG CAP PO SCH (10:01)
[2019-01-25] MEDS: ZINC SULF 220 MG CAP GT SCH (10:01)
[2019-01-25] MEDS: HYDROXYCHLOROQUINE 200 MG TAB GT SCH (10:01)
--- NOTE | 2019-01-25 10:10 | NUR ---
PATIENT LYING DOWN IN BED. NO DISTRESS NOTED. DENIES ANY PAIN. SCHEDULED MEDICATIONS DUE GIVEN. WILL CONTINUE TO MONITOR.
[2019-01-25 10:13] LABS: ANION GAP 14.4 (8-16); CREATININE 0.7 mg/dL (0.6-1.3); POTASSIUM 3.4 mmol/L (3.5-5.1)
[2019-01-25] MEDS: HYDRAGUARD CREAM TP SCH (10:21)
[2019-01-25] MEDS: CLINICAL MONITORING MC SCH (10:21)
[2019-01-25] MEDS ORDERED: MAG SULF 2000 MG/WATER PREMIX 50 ML IV SCH (11:00)
--- NOTE | 2019-01-25 11:00 | NUR ---
PATIENT SITTING UP IN BED. VOMIT X 1 EPISODE. GTUBE FEEDING STOPPED. PERFORMED ORAL AND TRACH SUCTIONING. O2 SAT AT 100% AT THIS TIME. WILL NOTIFY MD REGARDING VOMITING.
--- NOTE | 2019-01-25 11:16 | NUR ---
ZOFRAN GIVEN AT THIS TIME DUE TO VOMITING EPISODE. WILL CONTINUE TO MONITOR.
[2019-01-25] MEDS: ACETAMINOPHEN 650 MG/20.3 ML UDC GT PRN (12:14)
--- NOTE | 2019-01-25 12:21 | NUR ---
PATIENT HAS A 100.8 FEVER. TYLENOL GIVEN PER MD ORDERS. WILL CONTINUE TO MONITOR.
[2019-01-25] MEDS: THERAHONEY GEL 42.5 GM TP SCH (12:23)
--- NOTE | 2019-01-25 13:11 | NUR ---
PATIENT COMPLAINS OF PAIN. MORPHINE GIVEN. TEMPERATURE RECHECKED, NOW AT 99.5 VIA ORAL TEMP. BP 110/66, HR:106. WILL CONTINUE TO MONITOR.
--- NOTE | 2019-01-25 13:49 | NUR ---
ASSISTED DELIVERY MANAGER IN CLEANING AND REPOSITIONING PATIENT. WHITMORE CATHETER STILL LEAKING MODERATE AMOUNTS, PETER WAS WET UPON CHANGING PATIENT. WOUND CARE DONE PER MD ORDERS. WILL CONTINUE TO MONITOR.
[2019-01-25] MEDS ORDERED: POTASSIUM PHOSPHATE 15 MM in NACL 0.9% 250 ML IV SCH (14:00)
--- NOTE | 2019-01-25 14:10 | NUR ---
PT REFUSED SUCTIONING , SAID SHE WOULD ALLOW SUCTIONING AT 1500
--- NOTE | 2019-01-25 15:33 | NUR ---
PATIENT LYING DOWN IN BED SLEEPING, AROUSABLE BY VOICE. NO DISTRESS NOTED. DENIES ANY PAIN. SCHEDULED MEDICATIONS DUE GIVEN. WILL CONTINUE TO MONITOR.
--- NOTE | 2019-01-25 15:44 | NUR ---
01/25/19 RD FOLLOW UP COMPLETED PLEASE REFER TO NUTRITION ASSESSMENT UNDER CARE ACTIVITY FOR ESTIMATED NUTRITIONAL NEEDS. 1. RECOMMEND VITAL AT 60ML/HR VIA G TUBE -THIS WILL PROVIDE 1440 ML OF VOLUME, 1728 KCAL, AND 108 GM OF PROTEIN; WHICH MEETS 85% OF ESTIMATED KCAL NEEDS AND 100% OF ESTIMATED PROTEIN NEEDS 2. RECOMMEND 150 ML WATER FLUSH Q4H 3. CONTINUE MVI FOR WOUND HEALING 4. RD TO FOLLOW-UP 2-3 DAYS, HIGH RISK VICTOR MANUEL AYALA RD
[2019-01-25 17:34] LABS: HEMATOCRIT 26.8 % (36-48); HEMOGLOBIN 8.4 g/dL (12.0-16.0); MEAN CORPUSCULAR HEMOGLOBIN 27 pg (27-31); MEAN CORPUSCULAR HGB CONC 32 g/dL (33-37); MEAN CORPUSCULAR VOLUME 86.3 fL (80-94); PLATELET COUNT (AUTO) 111 K/uL (140-450); RED CELL DISTRIBUTION WIDTH 17.9 % (11.6-13.7); WHITE BLOOD COUNT (AUTO) 15.1 K/uL (4.8-10.8)
--- NOTE | 2019-01-25 18:00 | NUR ---
ASSISTED SALESPERSON YARD GOODS IN CLEANING AND REPOSITIONING PATIENT. SCHEDULED MEDICATIONS DUE GIVEN. WILL CONTINUE TO MONITOR.
[2019-01-25 18:56] LABS: EOSINOPHILS % (MANUAL) 2 % (0-4); LYMPHOCYTES % (MANUAL) 7 % (20-46)
--- NOTE | 2019-01-25 19:25 | NUR ---
GAVE REPORT TO BROWNFIELD REDEVELOPMENT SITE MANAGER NURSE FOR CONTINUITY OF CARE. PATIENT IN STABLE CONDITION.
--- NOTE | 2019-01-25 19:30 | NUR ---
Received endorsement from AM shift RN; patient is A/Ox3, able to make needs known, bedbound and trach to vent. Introduced self, updated board. On contact precautions; observed and maintained. IV site on right upper arm, midline, running IVF at 80mL/hr. Chu catheter in place, colostomy in place. Patient is contracted; has sacral wound and left and right hip wounds. Patient is on tube feeding. Bed in the lowest position, call light within reach. Initial assessment done. Will continue to monitor
--- NOTE | 2019-01-25 19:37 | NUR ---
Patient was repositioned to the left side per patient request. Tolerated well. No SOB or distress noted.
--- NOTE | 2019-01-25 21:20 | NUR ---
Vitals taken, due meds given. No SOB or distress noted. Asked patient if she wanted to resume tube feeding, patient declined, said to wait. Will continue to monitor. Addendum: 01/25/19 at 2139 by Steve Wynne RN Patient also stated she had 5/10 back pain at this time; medicated as ordered and per pain scale.
--- NOTE | 2019-01-25 22:10 | NUR ---
Checks made, no distress noted.
--- NOTE | 2019-01-25 23:50 | NUR ---
Vitals taken, due meds given. Patient stated she felt anxious; PRN Ativan administered. Will continue to monitor.
[2019-01-25] MEDS: LORazepam 2 MG/ML VIAL IM/IVP PRN (23:58)
[2019-01-26] VITALS (8 sets, daily range): BP systolic 94–138; BP diastolic 54–79
[2019-01-26] MEDS: Z-GUARD PASTE TP SCH ×2 (00:10→13:21)
--- NOTE | 2019-01-26 01:57 | NUR ---
Checks made, patient asleep, visible chest rise and fall noted.
--- NOTE | 2019-01-26 03:20 | NUR ---
Vitals taken, patient resting, no SOB or distress noted.
[2019-01-26] MEDS: NACL 0.9% 1,000 ML IV SCH (03:30)
[2019-01-26] MEDS: PIPER/TAZO 2.25GM/D5W PREMIX 50 ML IV SCH ×3 (05:44→17:24)
[2019-01-26] MEDS: ALBUTEROL SULFATE/IPRATROPIU 3 ML SOL IH SCH ×3 (06:36→19:44)
--- NOTE | 2019-01-26 06:36 | NUR ---
RECEIVED PT ON CARESCAPE ON DOCUMENTED SETTINGS, ALARMS ARE ON AND AUDIBLE, PTS TRACH SHILEY 6 IS SECURE BS COARSE SX PT, PT IN HF ASLEEP HHN GIVEN I\L WITH 3 MG DUONEB WITH NO ADVERSE EFFECTS, BMV HOB VENT PLUGGED INTO RED OUTLET CONT POX IN PLACE
--- NOTE | 2019-01-26 06:40 | NUR ---
Blood glucose level 67; administered PRN D50%. Dr. Iglesias at bedside, made aware. Awaiting orders.
[2019-01-26] MEDS: LEVOTHYROXINE 0.075 MG TAB GT SCH (06:51)
[2019-01-26] MEDS: BLOOD GLUCOSE MONITORING 1 DEV DEV FS SCH ×4 (06:56→20:27)
[2019-01-26] MEDS: DEXT 5% /NACL 0.9% 1,000 ML IV SCH ×2 (07:07→21:35)
--- NOTE | 2019-01-26 07:25 | NUR ---
Endorsed patient to AM shift RN for continuity of care. Patient in stable condition.
--- NOTE | 2019-01-26 07:26 | NUR ---
Received bedside report from pm nurse Jemal. Pt asleep, trach to vent in place. GT intact, no feeding formula running. Chu cath in place & draining clear hany urine. Colostomy bag intact with min loose brown stool. Left upper arm midline IV intact with ongoing D5NS @ 80ml/hr. Call light within reach.
[2019-01-26 07:45] LABS: BASOPHILS % (AUTO) 0.3 % (0.0-2.0); EOSINOPHILS # (AUTO) 0.6 K/uL (0-0.4); EOSINOPHILS % (AUTO) 7.7 % (0.0-4.0); HEMATOCRIT 26.2 % (36-48); HEMOGLOBIN 8.3 g/dL (12.0-16.0); LYMPHOCYTES # (AUTO) 0.5 K/uL (2.5-16.5); LYMPHOCYTES % (AUTO) 6.7 % (20.5-51.1); MEAN CORPUSCULAR HEMOGLOBIN 28 pg (27-31); MEAN CORPUSCULAR HGB CONC 32 g/dL (33-37); MEAN CORPUSCULAR VOLUME 87.3 fL (80-94); MONOCYTES # (AUTO) 0.4 K/uL (0.8-1.0); MONOCYTES % (AUTO) 5.1 % (1.7-9.3); NEUTROPHILS # (AUTO) 6.4 K/uL (1.8-7.7); NEUTROPHILS % (AUTO) 80.2 % (42.2-75.2); PLATELET COUNT (AUTO) 114 K/uL (140-450); RED BLOOD CELL COUNT(AUTO) 3.01 MIL/uL (4.20-5.40)
--- NOTE | 2019-01-26 08:00 | NUR ---
Left elbow open wound present. Site cleansed with NS, pat dry, covered with optifoam dressing. New tx order received from Dr. Iglesias.
[2019-01-26 08:12] LABS: ANION GAP 12.8 (8-16); CARBON DIOXIDE 21.8 mmol/L (21-32); CREATININE 0.8 mg/dL (0.6-1.3); POTASSIUM 3.6 mmol/L (3.5-5.1)
--- NOTE | 2019-01-26 08:30 | NUR ---
Chu cath cont to leak, clear light hany urine present in bag, underpad wet with urine. Pericare provided.
[2019-01-26] MEDS: LACTULOSE 20 GM/30 ML UDC GT SCH (08:35)
[2019-01-26] MEDS: MORPHINE SULFATE 2 MG/ML SYR IVP PRN ×4 (08:36→21:38)
[2019-01-26] MEDS: METOCLOPRAMIDE 10 MG/10 ML SYRP UDC GT SCH ×4 (08:38→17:24)
[2019-01-26] MEDS: levETIRAcetam 100 MG/ML ORASYR GT SCH ×2 (08:38→20:26)
[2019-01-26] MEDS: TAMSULOSIN 0.4 MG CAP PO SCH (08:39)
[2019-01-26] MEDS: ZINC SULF 220 MG CAP GT SCH (08:39)
[2019-01-26] MEDS: HYDROXYCHLOROQUINE 200 MG TAB GT SCH (08:40)
[2019-01-26] MEDS: SODIUM BICARBONATE 650 MG TAB GT SCH ×2 (08:40→20:25)
[2019-01-26] MEDS: GABAPENTIN 300 MG CAP GT SCH (08:40)
[2019-01-26] MEDS: TOPIRAMATE 25 MG TAB GT SCH ×2 (08:40→20:26)
[2019-01-26] MEDS: FLUCONAZOLE 100 MG TAB GT SCH (08:41)
[2019-01-26] MEDS: SERTRALINE 50 MG TAB GT SCH (08:41)
[2019-01-26] MEDS: HYDRAGUARD CREAM TP SCH (08:42)
[2019-01-26] MEDS: CLINICAL MONITORING MC SCH (08:42)
[2019-01-26 08:52] LABS: MAGNESIUM 2.1 mg/dL (1.8-2.4); PHOSPHORUS 3.7 mg/dL (2.5-4.9)
[2019-01-26] MEDS: MULTIVITAMIN/MINERALS 15 ML UDBTL GT SCH (08:59)
[2019-01-26] MEDS ORDERED: FLUCONAZOLE 100 MG TAB PO SCH (09:00)
--- NOTE | 2019-01-26 09:00 | NUR ---
0900 REGLAN SPILLED ON THE FLOOR. MED WASTED. NEW DOSE PULLED OUT FROM PYXIS AND ADMINISTERED TO PT. G-TUBE FEEDING RESUMED AT 10ML/HR AT THIS TIME.
--- NOTE | 2019-01-26 09:30 | NUR ---
GT feeding pump cont to beep, unable to read 10ml/hr rate. Dr. Toth notified. Per physician ok to start GT feeding Vital AF 1.2 @ 25ml/hr. GT feeding resumed @ 25ml/hr. HOB elevated at 30degrees.
--- NOTE | 2019-01-26 10:30 | NUR ---
Reassessed GT residual, obtained 70ml. GT feeding rate increased to 30ml/hr. Pt no signs of distress, no vomiting. Abd soft.
--- NOTE | 2019-01-26 11:30 | NUR ---
GT residual 15ml. GT feeding rate increased to 40ml/hr. Abd soft, no signs of distress. HOB remains elevated @ 30degrees.
[2019-01-26] MEDS: THERAHONEY GEL 42.5 GM TP SCH (13:21)
[2019-01-26] MEDS ORDERED: PANTOPRAZOLE 40 MG INJ VIAL IVP SCH (14:13)
[2019-01-26] MEDS: LORazepam 2 MG/ML VIAL IM/IVP PRN (15:20)
--- NOTE | 2019-01-26 15:20 | NUR ---
Ativan admin: Pt c/o feeling anxious re: toth reinsertion. Reassurance provided. Ativan given.
--- NOTE | 2019-01-26 15:40 | NUR ---
Chu cath removed, reinserted new indwelling Chu cath 16Fr/10ml. Chu draining clear yellow urine. No bladder distention.
--- NOTE | 2019-01-26 16:20 | NUR ---
Ativan reassessment: Pt calm & quiet, watching TV. No c/o discomfort at this time. Spouse Acosta arrived to visit pt. Informed of EGD/colonoscopy order from Dr. Johns. Per pt & spouse, refuse EGD/colonoscopy.
--- NOTE | 2019-01-26 17:55 | NUR ---
Chu cath still leaking, min amt dark hany urine present in collection bag, underpads wet with urine. Dr. Iglesias notified. No new orders at this time. Pericare provided. Pt repositioned.
--- NOTE | 2019-01-26 18:00 | NUR ---
Dr. Johns & Dr. Iglesias in unit, notified of pt & spouse refusal of EGD & colonoscopy. No new orders received.
--- NOTE | 2019-01-26 19:10 | NUR ---
RECEIVED PATIENT REPORT AT BEDSIDE. PATIENT IS AWAKE AND ALERT AND IS ABLE TO MOUTH WORDS. PT IS TRACH TO VENT WITH 28% FIO2, O2 SAT 100% AT THIS TIME. NO S/S OF DISTRESS. GTUBE IN PLACE WITH TUBE FEEDING RUNNING. COLOSTOMY BAG NOTED DRAINING BROWN LIQUID STOOL. WHITMORE CATH IN PLACE. LEFT UPPER ARM MIDLINE INTACT. PATIENT ON TELE MONITORING. BED LOWERED WITH CALL LIGHT WITHIN REACH. WILL CONTINUE TO MONITOR
--- NOTE | 2019-01-26 19:10 | NUR ---
Report given to pm nurse Marquis. Pt in bed, awake, trach to vent in place. No signs of distress. HOB elevated to 30degrees. Chu cath & colostomy bag in place. Gt with ongoing feeding. Left upper arm mildine IV with ongoing IVF.
--- NOTE | 2019-01-26 20:01 | NUR ---
RECEIVED PATIENT TRACH SHILEY 6 TO VENT ON SETTINGS: VC 400, 12, +5, 24%. VENT CHECK DONE. VENT PLUGGED INTO RED OUTLET. VENT ALARMS ON AND AUDIBLE. AMBU BAG AT [facility]. AIRWAY SECURE AND PATENT. SUCTIONED SMALL AMOUNT OF THICK, WHITE SECRETIONS. SCHEDULED BREATHING TREATMENT ADMINISTERED. TOLERATED TX WELL, NO ADVERSE SIDE EFFECTS. NO RESPIRATORY DISTRESS NOTED AT THIS TIME. WILL CONTINUE TO MONITOR.
[2019-01-26] MEDS: AMIKACIN 500 MG in DEXTROSE 5% 100 ML IV SCH (20:25)
--- NOTE | 2019-01-26 20:26 | NUR ---
ADMINISTERED SCHEDULED MEDICATIONS VIA G-TUBE. NO RESIDUALS NOTED. PT TOLERATED WELL
[2019-01-27] VITALS (8 sets, daily range): BP systolic 111–161; BP diastolic 72–84
[2019-01-27] MEDS: PIPER/TAZO 2.25GM/D5W PREMIX 50 ML IV SCH ×2 (00:16→05:46)
[2019-01-27] MEDS: Z-GUARD PASTE TP SCH ×2 (01:05→13:16)
[2019-01-27] MEDS: MORPHINE SULFATE 2 MG/ML SYR IVP PRN ×3 (02:21→19:46)
--- NOTE | 2019-01-27 03:09 | NUR ---
PT ASLEEP AT THIS TIME. NO S/S OF DISTRESS NOTED
--- NOTE | 2019-01-27 05:30 | NUR ---
PT ASKING FOR PAIN MEDS. PATIENT INFORMED THAT HER PAIN MEDICATION IS NOT DUE YET. PT REPOSITIONED FOR COMFORT. PATIENT'S PRESENT IN THE ROOM AND STATES THAT PATIENT HAS BEEN TAKING DILAUDID AND SHOULD BE ON DILAUDID. DR DOUGLAS INFORMED
[2019-01-27] MEDS ORDERED: HYDROmorphone 1 MG/ML AMP IVP PRN (05:35)
[2019-01-27] MEDS: LEVOTHYROXINE 0.075 MG TAB GT SCH (06:48)
[2019-01-27] MEDS: METOCLOPRAMIDE 10 MG/10 ML SYRP UDC GT SCH ×3 (06:49→16:45)
--- NOTE | 2019-01-27 06:50 | NUR ---
ORDERED 50MG TRAMADOL UNVERIFIED BY PHARMACY. DR PIERRE ORDERS TO ADMINISTER NOW. MEDICATION OVERRODE
[2019-01-27] MEDS ORDERED: traMADol 50 MG TAB ONE (06:56)
[2019-01-27] MEDS: ALBUTEROL SULFATE/IPRATROPIU 3 ML SOL IH SCH ×3 (07:04→18:49)
--- NOTE | 2019-01-27 07:05 | NUR ---
RECEIVED ON A [employer]APE R860 VENTILATOR PLUGGED INTO RED OUTLET TOLERATING WELL WITHOUT INCIDENT TO A CHAPARRITA DCT #6 AIRWAY SECURED WITH A TAWANDA TRACH TIE CUFF PRESSURE CHECKED NOTED MASIMO RADIAL-7 CONTINUOS PULSE OXIMETER AT BEDSIDE ON AND FUNCTIONING WELL LOW SATURATION ALARM SET AT 92% AMBU BAG AT HOB LOC AWAKE AND ALERT NO DISTRESS NOTED GOOD CHEST RISE DEEP TRACHEAL SUCTION FOR MODERATE THIN YELLOW SECRETIONS AIRWAY PATENT
[2019-01-27] MEDS: BLOOD GLUCOSE MONITORING 1 DEV DEV FS SCH ×4 (07:12→21:32)
--- NOTE | 2019-01-27 07:23 | NUR ---
REPORT RECEIVED BY PM NURSE BROOKLYNN. PT RECEIVING BREATHING TX. RT AT BEDSIDE. PT IN NO VISIBLE DISTRESS. WHITMORE CATH IN PLACE. IV MIDLINE INTACT WITH ONGOING D5NS AT 80ML/HR. COLOSTOMY BAG IN PLACE WITH WATERY BROWN STOOL. G-TUBE INTACT WITH ONGOING VITAL AF 1.2 AT 40ML/HR. HEAD OF BED ELEVATED AT 30 DEGREES. TRACH TO VENT IN PLACE.
--- NOTE | 2019-01-27 07:23 | NUR ---
PATIENT REPORT GIVEN AT BEDSIDE. PATIENT ENDORSED IN STABLE CONDITION
[2019-01-27] MEDS: ZINC SULF 220 MG CAP GT SCH (07:52)
[2019-01-27] MEDS: TAMSULOSIN 0.4 MG CAP PO SCH (07:52)
[2019-01-27] MEDS: ACETAMINOPHEN 650 MG/20.3 ML UDC GT PRN ×2 (07:52→20:51)
[2019-01-27 08:55] LABS: BASOPHILS % (AUTO) 0.4 % (0.0-2.0); EOSINOPHILS # (AUTO) 0.4 K/uL (0-0.4); EOSINOPHILS % (AUTO) 5.4 % (0.0-4.0); HEMATOCRIT 23.9 % (36-48); HEMOGLOBIN 7.6 g/dL (12.0-16.0); LYMPHOCYTES # (AUTO) 0.7 K/uL (2.5-16.5); LYMPHOCYTES % (AUTO) 8.7 % (20.5-51.1); MEAN CORPUSCULAR HEMOGLOBIN 28 pg (27-31); MEAN CORPUSCULAR HGB CONC 32 g/dL (33-37); MEAN CORPUSCULAR VOLUME 86.6 fL (80-94); MONOCYTES # (AUTO) 0.5 K/uL (0.8-1.0); MONOCYTES % (AUTO) 6.8 % (1.7-9.3); NEUTROPHILS # (AUTO) 6.1 K/uL (1.8-7.7); NEUTROPHILS % (AUTO) 78.7 % (42.2-75.2); PLATELET COUNT (AUTO) 167 K/uL (140-450); RED BLOOD CELL COUNT(AUTO) 2.76 MIL/uL (4.20-5.40); RED CELL DISTRIBUTION WIDTH 17.7 % (11.6-13.7); WHITE BLOOD COUNT (AUTO) 7.8 K/uL (4.8-10.8)
[2019-01-27] MEDS: levETIRAcetam 100 MG/ML ORASYR GT SCH ×2 (08:56→20:41)
[2019-01-27] MEDS: MULTIVITAMIN/MINERALS 15 ML UDBTL GT SCH (08:56)
[2019-01-27] MEDS: PANTOPRAZOLE 40 MG INJ VIAL IVP SCH (08:57)
[2019-01-27] MEDS: SERTRALINE 50 MG TAB GT SCH (08:58)
[2019-01-27] MEDS: FLUCONAZOLE 100 MG TAB GT SCH (08:59)
[2019-01-27] MEDS: GABAPENTIN 300 MG CAP GT SCH (08:59)
[2019-01-27] MEDS: TOPIRAMATE 25 MG TAB GT SCH ×2 (08:59→20:41)
[2019-01-27] MEDS: SODIUM BICARBONATE 650 MG TAB GT SCH ×2 (09:00→20:41)
[2019-01-27] MEDS: HYDROXYCHLOROQUINE 200 MG TAB GT SCH (09:00)
[2019-01-27] MEDS: NACL 0.9% 1,000 ML IV SCH ×2 (09:02→23:54)
--- NOTE | 2019-01-27 09:15 | NUR ---
Pt wet with small amount of urine on underpad. Chu cath intact with 200ml clear yellow urine in collection bag. Pericare provided, underpads changed. Pt repositioned. HOB elevated 30degrees. Colostomy bag intact with watery brown stool. Pt drowsy, able to communicate by clicking her tongue & mouthing words. Call light within reach. Tach to vent in place.
[2019-01-27 09:39] LABS: ANION GAP 15.9 (8-16); CARBON DIOXIDE 17.8 mmol/L (21-32); CREATININE 0.7 mg/dL (0.6-1.3)
[2019-01-27 09:41] LABS: POTASSIUM 2.7 mmol/L (3.5-5.1)
--- NOTE | 2019-01-27 09:45 | NUR ---
RESTING WELL NO PULMONARY DISTRESS NOTED GOOD CHEST RISE NO SUCTIONNG AT THIS TIME PETROLEUM INSPECTOR TO MONITOR Addendum: 01/27/19 at 0958 by Chalo Verma RT SUCTIONNG = SUCTIONING
[2019-01-27] MEDS: HYDRAGUARD CREAM TP SCH (09:47)
[2019-01-27] MEDS: AMIKACIN 500 MG in DEXTROSE 5% 100 ML IV SCH ×2 (09:47→20:41)
[2019-01-27] MEDS ORDERED: POTASSIUM CHLORIDE 20% 40 MEQ/15 ML UDC GT SCH ×2 (10:30→18:00)
--- NOTE | 2019-01-27 11:05 | NUR ---
STABLE NO EVIDENCE OF SOB NOTED GOOD CHEST RISE DEEP TRACHEAL SUCTION FOR SMALL THIN PALE YELLOW SECRETIONS AIRWAY PATENT
[2019-01-27] MEDS: HYDROmorphone 1 MG/ML AMP IVP PRN ×3 (11:09→22:01)
[2019-01-27 11:22] LABS: MAGNESIUM 1.7 mg/dL (1.8-2.4); PHOSPHORUS 2.3 mg/dL (2.5-4.9)
[2019-01-27] MEDS: PIPER/TAZO 3.375GM/D5W PREMIX 50 ML IV SCH ×2 (11:25→18:42)
--- NOTE | 2019-01-27 12:15 | NUR ---
Dr. Goodson at bedside assessing pt. Physician with verbal order for CXR stat d/t fever in am. Order noted.
[2019-01-27] MEDS: THERAHONEY GEL 42.5 GM TP SCH (13:15)
--- NOTE | 2019-01-27 13:31 | NUR ---
RESTING WELL NO APPARENT SOB NOTED GOOD CHEST RISE AIRWAY PATENT
[2019-01-27] MEDS ORDERED: MAG SULF 2000 MG/WATER PREMIX 50 ML IV SCH (14:00)
--- NOTE | 2019-01-27 15:25 | NUR ---
STABLE GOOD CHEST RISE NO DEEP TRACHEAL SUCTIONING AT THIS TIME MOLD MACHINE OPERATOR TO MONITOR
[2019-01-27] MEDS ORDERED: POTASSIUM PHOSPHATE 15 MM in NACL 0.9% 250 ML IV SCH (16:00)
--- NOTE | 2019-01-27 17:25 | NUR ---
TOLERATING VENTILATORY SUPPORT WELL WITHOUT INCIDENT NO EVIDENCE OF SOB NOTED GOOD CHEST RISE AIRWAY PATENT NO HHN PRN THERAPY AT THIS TIME HEAT AND FROST INSULATOR HELPER TO MONITOR
--- NOTE | 2019-01-27 19:07 | NUR ---
RECEIVED PATIENT TRACH SHILEY 6 TO VENT ON SETTINGS: AC/VC 400, 12, +5, 24%. VENT CHECK DONE. VENT ALARMS ON AND AUDIBLE. VENT PLUGGED INTO RED OUTLET. CONTINUOUS PULSE OX ON AND FUNCTIONING; ALARMS ON AND AUDIBLE. AMBU BAG AT BEDSIDE. AIRWAY SECURE AND PATENT. SUCTIONED SMALL AMOUNT OF THICK, WHITE SECRETIONS. SCHEDULED BREATHING TREATMENT ADMINISTERED. TOLERATED TX WELL, NO ADVERSE SIDE EFFECTS. NO RESPIRATORY DISTRESS NOTED AT THIS TIME. WILL CONTINUE TO MONITOR.
--- NOTE | 2019-01-27 19:20 | NUR ---
REPORT GIVEN TO PM NURSE AKIKO. PT STABLE AT THIS TIME.
--- NOTE | 2019-01-27 19:21 | NUR ---
RECEIVED BEDSIDE REPORT FROM DAY SHIFT NURSE PIEDAD RN, PT STABLE, NO DISTRESS NOTED, MIDLINE TO THE L UPPER ARM, PATENT INTACT, INFUSING WELL, PT TRACH TO VENT, NO SOB NOTED, PT STATED HAVING PAIN, WILL MEDICATION, WHITMORE CATH IN PLACE DRAINING YELLOW URINE, COLOSTOMY BAG IN PLACE DRAINING BROWN FECES, DRESSINGS INTACT, INITIAL ASSESSMENT DONE, ALL SAFETY PRECAUTION MET, CALL LIGHT WITHIN REACH, WILL CONTINUE TO MONITOR.
--- NOTE | 2019-01-27 19:46 | NUR ---
PT C/O PAIN, PAIN MEDICATION ADMINISTERED. PT TOLERATED WELL, NO DISTRESS NOTED, CALL LIGHT WITHIN REACH, WILL CONTINUE TO MONITOR.
--- NOTE | 2019-01-27 20:11 | NUR ---
CHECKED PT RESIDUAL 280, GTUBE FEEDING STOPPED, WILL RECHECK RESIDUAL IN AN HOUR.
--- NOTE | 2019-01-27 21:13 | NUR ---
VENT CHECK DONE. VENT ALARMS ON AND AUDIBLE. NO RESPIRATORY DISTRESS NOTED AT THIS TIME. WILL CONTINUE TO MONITOR.
--- NOTE | 2019-01-27 21:30 | NUR ---
RECHECKED RESIDUAL 95ML, RESTARTED TUBE FEEDINGS. WILL CHECK FOR PT TOLERANCE
--- NOTE | 2019-01-27 22:01 | NUR ---
PT C/O PAIN, PAIN MEDICATION ADMINISTERED. PT TOLERATED WELL, NO DISTRESS NOTED, CALL LIGHT WITHIN REACH, WILL CONTINUE TO MONITOR.
--- NOTE | 2019-01-27 23:10 | NUR ---
RECHECKED RESIDUAL 120ML, PT RESTING, NO DISTRESS NOTED, TOLERATING FEEDING WELL, WILL CONTINUE TO MONITOR.
[2019-01-28] VITALS: BP 105/67
[2019-01-28] MEDS: Z-GUARD PASTE TP SCH ×2 (00:29→13:00)
[2019-01-28] MEDS: MORPHINE SULFATE 2 MG/ML SYR IVP PRN ×4 (00:29→20:21)
--- NOTE | 2019-01-28 00:29 | NUR ---
CHECKED ON PT, PT C/O PAIN, V/S TAKEN, WITHIN PT BASELINE, PAIN MEDICATION ADMINISTERED, CALL LIGHT WITHIN REACH, WILL CONTINUE TO MONITOR.
[2019-01-28] MEDS: HYDROmorphone 1 MG/ML AMP IVP PRN ×4 (03:46→23:43)
--- NOTE | 2019-01-28 03:46 | NUR ---
PT C/O PAIN, V/S TAKEN, WNL, PAIN MEDICATION GIVEN, PT TOLERATED WELL, NO DISTRESS NOTED, CALL LIGHT WITHIN REACH, WILL CONTINUE TO MONTIOR.
[2019-01-28 04:00] VITALS: BP 124/81
[2019-01-28] MEDS ORDERED: MEROPENEM 1,000 MG in NACL 0.9% 100 ML IV SCH (05:00)
[2019-01-28] MEDS ORDERED: MEROPENEM 1,000 MG VIAL IV ONE (06:24)
[2019-01-28] MEDS: METOCLOPRAMIDE 10 MG/10 ML SYRP UDC GT SCH ×3 (06:26→16:34)
[2019-01-28] MEDS: LEVOTHYROXINE 0.075 MG TAB GT SCH (06:26)
--- NOTE | 2019-01-28 06:27 | NUR ---
PT C/O PAIN, PAIN MEDICATION PER MD ORDER ADMINISTERED, PT TOLERATED WELL, NO DISTRESS NOTED, CALL LIGHT WITHIN REACH, WILL CONTINUE TO MONITOR.
[2019-01-28] MEDS: BLOOD GLUCOSE MONITORING 1 DEV DEV FS SCH ×4 (06:32→20:27)
--- NOTE | 2019-01-28 07:09 | NUR ---
ENDORSED PT TO DAY SHIFT NURSE PIEDAD RN, PT STABLE, NO DISTRESS NOTED. CALL LIGHT WITHIN REACH.
--- NOTE | 2019-01-28 07:10 | NUR ---
RECIEVED REPORT FROM PM NURSE KENDALL. PT LAYING IN BED. TRACH TO VENT. NO VISIBLE SIGNS OF DISTRESS. LEFT IV MIDLINE INTACT. WHITMORE CATH IN PLACE. COLOSTOMY IN PLACE.
[2019-01-28 08:00] VITALS: BP 147/92
[2019-01-28] MEDS: ALBUTEROL SULFATE/IPRATROPIU 3 ML SOL IH SCH ×3 (08:11→19:52)
--- NOTE | 2019-01-28 08:11 | NUR ---
RECEIVED ON A [employer] Silicon DevicesSCAPE R860 VENTILATOR PLUGGED INTO RED OUTLET TOLERATING WELL WITHOUT INCIDENT TO A CHAPARRITA DCT #6 AIRWAY SECURED WITH A TAWANDA TRACH TIE CUFF PRESSURE CHECKED NOTED GABRIELA RADICAL-7 CONTINUOS PULSE OXIMETER AT BEDSIDE ON AND FUNCTIONING WELL LOW SATURATION ALARM SET AT 92% AMBU BAG NOTED AT HOB LOC ASLEEP RESTING WELL NO INDICATIONS OF PULMONARY DISTRESS EQUAL BILATERAL CHEST RISE DEEP TRACHEAL SUCTION FOR LARGE THICK PALE YELLOW SECRETIONS AIRWAY PATENT
[2019-01-28 08:19] LABS: ANION GAP 16.5 (8-16); CARBON DIOXIDE 17.9 mmol/L (21-32); CREATININE 0.6 mg/dL (0.6-1.3); POTASSIUM 4.4 mmol/L (3.5-5.1)
[2019-01-28 08:28] LABS: MAGNESIUM 2.1 mg/dL (1.8-2.4); PHOSPHORUS 2.8 mg/dL (2.5-4.9)
[2019-01-28] MEDS: PANTOPRAZOLE 40 MG INJ VIAL IVP SCH (08:30)
[2019-01-28] MEDS: levETIRAcetam 100 MG/ML ORASYR GT SCH ×2 (08:30→20:21)
[2019-01-28] MEDS: LINEZOLID 600MG PREMIX 300 ML IV SCH ×2 (08:30→20:21)
[2019-01-28] MEDS: SODIUM BICARBONATE 650 MG TAB GT SCH ×2 (08:31→20:21)
[2019-01-28] MEDS: GABAPENTIN 300 MG CAP GT SCH (08:32)
[2019-01-28] MEDS: FLUCONAZOLE 100 MG TAB GT SCH (08:32)
[2019-01-28] MEDS: HYDROXYCHLOROQUINE 200 MG TAB GT SCH (08:32)
[2019-01-28 08:33] LABS: BASOPHILS % (AUTO) 0.5 % (0.0-2.0); EOSINOPHILS # (AUTO) 0.5 K/uL (0-0.4); HEMATOCRIT 24.7 % (36-48); HEMOGLOBIN 7.6 g/dL (12.0-16.0); LYMPHOCYTES # (AUTO) 0.9 K/uL (2.5-16.5); LYMPHOCYTES % (AUTO) 10.8 % (20.5-51.1); MEAN CORPUSCULAR HEMOGLOBIN 27 pg (27-31); MEAN CORPUSCULAR HGB CONC 31 g/dL (33-37); MEAN CORPUSCULAR VOLUME 88.6 fL (80-94); MONOCYTES # (AUTO) 0.7 K/uL (0.8-1.0); MONOCYTES % (AUTO) 7.8 % (1.7-9.3); NEUTROPHILS # (AUTO) 6.6 K/uL (1.8-7.7); NEUTROPHILS % (AUTO) 74.9 % (42.2-75.2); PLATELET COUNT (AUTO) 205 K/uL (140-450); RED BLOOD CELL COUNT(AUTO) 2.79 MIL/uL (4.20-5.40); RED CELL DISTRIBUTION WIDTH 18.3 % (11.6-13.7); WHITE BLOOD COUNT (AUTO) 8.8 K/uL (4.8-10.8)
[2019-01-28] MEDS: SERTRALINE 50 MG TAB GT SCH (08:33)
[2019-01-28] MEDS: TAMSULOSIN 0.4 MG CAP PO SCH (08:33)
[2019-01-28] MEDS: TOPIRAMATE 25 MG TAB GT SCH ×2 (08:33→20:21)
[2019-01-28] MEDS: ZINC SULF 220 MG CAP GT SCH (08:33)
[2019-01-28] MEDS: MULTIVITAMIN/MINERALS 15 ML UDBTL GT SCH (08:34)
[2019-01-28] MEDS: HYDRAGUARD CREAM TP SCH (09:37)
--- NOTE | 2019-01-28 09:48 | NUR ---
RESTING WELL WITHOUT EVIDENCE OF PULMONARY DISTRESS NOTED GOOD CHEST RISE
[2019-01-28] MEDS: AMIKACIN 500 MG in DEXTROSE 5% 100 ML IV SCH (10:04)
[2019-01-28] MEDS: traMADol 50 MG TAB GT PRN (10:37)
--- NOTE | 2019-01-28 10:52 | NUR ---
PT VOMITED MINIMAL AMOUNT OF MILKY SALIVA. PT HOB IS UP AT 30 DEGREES WITH G-TUBE FEEDING RUNNING AT 50 ML/HR. G-TUBE FEEDING HELD. PT SUCTIONED. CALLED RT TO CHANGE TRACH DRESSING. PT AWAKE, NO RESPIRATORY DISTRESS. PT'S BROTHER AT THE BEDSIDE.
--- NOTE | 2019-01-28 11:30 | NUR ---
Pt underpad wet with urine, toth cath in place & draining clear yellow urine. Pericare provided. Pt repositioned.
--- NOTE | 2019-01-28 11:45 | NUR ---
STABLE GOOD CHEST RISE DEEP TRACHEAL SUCTION FOR MODERATE THIN PALE YELLOW SECRETIONS AIRWAY PATENT TRACH/STOMA AREA CLEANED CHANGED TRACH TUBE TIE AND STOMA GAUZE
--- NOTE | 2019-01-28 11:52 | NUR ---
PT IN BED, HOB AT 30DEGREES. GT IN PLACE WITH 180ML RESIDUAL VOLUME. CONT TO HOLD GT FEEDING.
[2019-01-28 12:00] VITALS: BP 139/93
[2019-01-28] MEDS: MEROPENEM 1,000 MG in NACL 0.9% 100 ML IV SCH ×2 (12:15→20:22)
--- NOTE | 2019-01-28 12:51 | NUR ---
01/28/19 RD FOLLOW UP COMPLETED PLEASE REFER TO NUTRITION ASSESSMENT UNDER CARE ACTIVITY FOR ESTIMATED NUTRITIONAL NEEDS. 1. RECOMMEND VITAL AT 60ML/HR VIA G TUBE -THIS WILL PROVIDE 1440 ML OF VOLUME, 1728 KCAL, AND 108 GM OF PROTEIN; WHICH MEETS 85% OF ESTIMATED KCAL NEEDS AND 100% OF ESTIMATED PROTEIN NEEDS 2. RECOMMEND 150 ML WATER FLUSH Q4H 3. RECOMMEND VITAMIN C 1000MG BID 4. RECOMMEND GEGE 5. RD TO FOLLOW-UP 2-3 DAYS, HIGH RISK VICTOR MANUEL AYALA RD
--- NOTE | 2019-01-28 12:52 | NUR ---
Pt in bed, HOB at 30degrees. GT intact with 120ml residual. Cont to hold GT feeding. Dr. Iglesias paged re: vomiting & residual volume.
[2019-01-28] MEDS: THERAHONEY GEL 42.5 GM TP SCH (13:00)
--- NOTE | 2019-01-28 14:30 | NUR ---
Dr. Iglesias notified of x1 episode of vomiting GT feeding. Per physician, resume GT feeding Vital AF 1.2 @ 25ml/hr if residual <100ml.
--- NOTE | 2019-01-28 14:37 | NUR ---
NO DISTRESS NOTED GOOD CHEST RISE DEEP TRACHEAL SUCTION FOR MODERATE THIN PALE YELLOW SECRETIONS AIRWAY PATENT
--- NOTE | 2019-01-28 15:15 | NUR ---
GT residual at 60ml. GTF Vital AF 1.2 resumed @ 25ml/hr. Pt awake, able to make needs known, no signs of distress, respirations even & nonlabored on trach to vent. Abd soft. Left upper arm midline IV intact & patent. Chu cath in place & draining clear yellow urine. Colostomy bag in place with loose brown stool. HOB kept elevated at 30degrees. Call light within reach. Will continue to monitor.
[2019-01-28] MEDS ORDERED: CLINICAL MONITORING MC PRN (15:25)
--- NOTE | 2019-01-28 15:37 | NUR ---
NO SOB NOTED GOOD CHEST RISE DEEP TRACHEAL SUCTION FOR SMALL THIN PALE YELLOW SECRETIONS AIRWAY PATENT
[2019-01-28 16:00] VITALS: BP 120/74
--- NOTE | 2019-01-28 17:45 | NUR ---
NO RESPIRATORY DISTRESS NOTED GOOD CHEST RISE DEEP TRACHEAL SUCTION FOR MODERATE THIN PALE YELLOW SECRETIONS AIRWAY PATENT
--- NOTE | 2019-01-28 19:15 | NUR ---
REPORT GIVEN TO PM NURSE SUMMER. PT AWAKE, NO SIGNS OF DISTRESS, TRACH TO VENT IN PLACE.
--- NOTE | 2019-01-28 19:30 | NUR ---
RECEIVED BEDSIDE REPORT FROM DAY SHIFT RN, PATIENT IN BED, ABLE TO MAKE NEEDS KNOWN, AAOX 2-3, TRACH TO VENT, FIO2 40 RR 12 PEEP 5. O2 SAT AT 100. NO SIGNS OF RESPIRATORY DISTRESS. LEFT MIDLINE INFUSING NS AT 10 ML/HR. G TUBE IN PLACE INFUSING VITAL AF 1.2 AT 25, NOTED 60 ML RESIDUALS NOTED. WHITMORE CATH IN PLACE. NOTED SACRAL WOUNDS AND WOUND ON LEFT AND RIGHT HIP AND LEFT ELBOW. NSR ON TELE, WILL CONTINUE TO MONITOR.
[2019-01-28 20:00] VITALS: BP 121/74
--- NOTE | 2019-01-28 20:21 | NUR ---
PATIENT C/O PAIN, FLACC-7 GAVE MORPHINE
--- NOTE | 2019-01-28 22:53 | NUR ---
REPOSITIONED PATIENT FOR COMFORT, DRESSING CHANGED ON SACRAL AREA.
--- NOTE | 2019-01-28 23:43 | NUR ---
FLACC 7 WILL MEDICATE WITH DILAUDID
[2019-01-29] VITALS: BP 138/70
[2019-01-29] MEDS: Z-GUARD PASTE TP SCH ×2 (01:04→12:32)
--- NOTE | 2019-01-29 01:35 | NUR ---
PATIENT SLEEPING IN BED WILL CONTINUE TO MONITOR
--- NOTE | 2019-01-29 03:15 | NUR ---
PATIENT C/O PAIN, OFFERED MORPHINE, PATIENT WANTS DILAUDID, EXPLAINED ITS NOT DUE YET, PATIENT UNDERSTOOD, WILL ADMINISTER ACCORDING TO ORDER
[2019-01-29] MEDS: HYDROmorphone 1 MG/ML AMP IVP PRN ×4 (03:48→21:17)
[2019-01-29] MEDS: MEROPENEM 1,000 MG in NACL 0.9% 100 ML IV SCH ×3 (03:48→20:08)
--- NOTE | 2019-01-29 03:58 | NUR ---
V/S TAKEN ALL STABLE
[2019-01-29 04:00] VITALS: BP 126/74
[2019-01-29] MEDS: LEVOTHYROXINE 0.075 MG TAB GT SCH (06:38)
[2019-01-29] MEDS: BLOOD GLUCOSE MONITORING 1 DEV DEV FS SCH ×4 (06:39→19:59)
[2019-01-29] MEDS: METOCLOPRAMIDE 10 MG/10 ML SYRP UDC GT SCH ×3 (06:39→16:32)
--- NOTE | 2019-01-29 07:15 | NUR ---
ENDORSED PATIENT TO DAY SHIFT NURSE, PATIENT STABLE.
--- NOTE | 2019-01-29 07:16 | NUR ---
SBAR REPORT RECEIVED FROM JAY WOOD AT PT BEDSIDE. PATIENT SEEN TRACH TO VENT. CONTRACTED BUE/BLE. ABLE TO FOLLOW COMMANDS, FUNCTIONAL QUAD, ABLE TO MOVE LEFT EXTREMITY. G-TUBE FEEDING, MINIMAL RESIDUAL NOTED. COLOSTOMY TO GRAVITY POUCH, NO ACUTE DISTRESS NOTED. WHITMORE CATH TO GRAVITY IN MODERATE AMOUNT, LEAKING NOTED AROUND CATH SITE, SKIN CARE GIVEN. ON WOUND CARE BED, OFFLOADED PRESSURE AREAS. POSITIONED FOR COMFORT. ORAL CARE PROVIDED, MODERATE THICK WHITE SECRETIONS NOTED. UPDATED ON CURRENT PLAN OF CARE, IN AGREEMENT. MIDLINE DRESSING CLEAN AND INTACT, DOUBLE LUMENS PATENT.
[2019-01-29] MEDS: ALBUTEROL SULFATE/IPRATROPIU 3 ML SOL IH SCH ×3 (07:21→18:47)
--- NOTE | 2019-01-29 07:21 | NUR ---
REC'D PT ON CARESCAPE VENT SETTINGS AC12 VT400 PEEP5 FIO2 24% ALARMS ON AND AUDIBLE AND AMBU BAG AT SIDE OF VENT AND VENT IS PLUGGED INTO RED OUTLET, I\L TX GIVEN WITH DUONEB 3ML WITH NO ADVERSE REACTION POST TX B\S ARE RHONCHI BILATERALLY, SXN PT SMALL AMT OF THIN YELLOW SECRETIONS PT IS TRACH WITH SHILEY #6 AND SKIN INTEGRITY PT IS SLEEPING
[2019-01-29 08:00] VITALS: BP 103/64
[2019-01-29] MEDS: SERTRALINE 50 MG TAB GT SCH (09:04)
[2019-01-29] MEDS: TOPIRAMATE 25 MG TAB GT SCH ×2 (09:04→20:09)
[2019-01-29] MEDS: GABAPENTIN 300 MG CAP GT SCH (09:04)
[2019-01-29] MEDS: levETIRAcetam 100 MG/ML ORASYR GT SCH ×2 (09:04→20:08)
[2019-01-29] MEDS: ZINC SULF 220 MG CAP GT SCH (09:05)
[2019-01-29] MEDS: PANTOPRAZOLE 40 MG INJ VIAL IVP SCH (09:05)
[2019-01-29] MEDS: SODIUM BICARBONATE 650 MG TAB GT SCH ×2 (09:05→20:08)
[2019-01-29] MEDS: HYDROXYCHLOROQUINE 200 MG TAB GT SCH (09:05)
[2019-01-29] MEDS: LINEZOLID 600MG PREMIX 300 ML IV SCH ×2 (09:05→20:08)
[2019-01-29] MEDS: TAMSULOSIN 0.4 MG CAP PO SCH (09:05)
[2019-01-29] MEDS: FLUCONAZOLE 100 MG TAB GT SCH (09:05)
[2019-01-29] MEDS: MULTIVITAMIN/MINERALS 15 ML UDBTL GT SCH (09:05)
[2019-01-29] MEDS: HYDRAGUARD CREAM TP SCH (09:06)
[2019-01-29] MEDS: MORPHINE SULFATE 2 MG/ML SYR IVP PRN ×2 (09:07→20:08)
[2019-01-29 12:00] VITALS: BP 103/72
--- NOTE | 2019-01-29 12:14 | NUR ---
PATIENT ASSISTED IN CHANGING OF POSITIONS Q2H DURING SHIFT, OFFLOADED PRESSURE AREAS. PATIENT SKIN KEPT CLEAN AND DRY. ORAL CARE PROVIDED, MODERATE THICK WHITE SECRETIONS NOTED. PATIENT ABLE TO MAKE NEEDS KNOWN. NO ACUTE DISTRESS NOTED.
[2019-01-29] MEDS: THERAHONEY GEL 42.5 GM TP SCH (12:31)
[2019-01-29] MEDS ORDERED: AMIKACIN 500 MG in DEXTROSE 5% 100 ML IV SCH (15:00)
[2019-01-29 16:00] VITALS: BP 96/68
--- NOTE | 2019-01-29 16:20 | NUR ---
FREQUENT ORAL CARE/SUCTIONING. CONTINUES WITH MODERATE SECRETIONS. PATIENT POSITIONED FOR COMFORT. OFFLOADED PRESSURE AREAS. WOUND DRESSINGS C/D/I. NO ACUTE DISTRESS NOTED.
[2019-01-29] MEDS: AMIKACIN IV SCH (16:32)
[2019-01-29] MEDS: NACL 0.9% IV SCH (16:32)
--- NOTE | 2019-01-29 18:54 | NUR ---
Received pt stable on vent support at documented settings, suctioned moderate amounts of thick white secretions, hhn tx given, tolerated well, no resp dsitress or SOB noted at this time, Shiley 6 trach secured/patent/midline, alarms set and audible, ambu bag at bedside, vent plugged into red outlet, cont pulse ox on, will cont to monitor.
--- NOTE | 2019-01-29 19:19 | NUR ---
SBAR REPORT GIVEN TO RN AT PT BEDSIDE. PATIENT RESTING IN BED, TRACH TO VENT. NO ACUTE DISTRESS NOTED.
--- NOTE | 2019-01-29 19:30 | NUR ---
RECEIVED BEDSIDE REPORT FROM DAY SHIFT RN FRANCHESCA, PATIENT IN BED, ABLE TO MAKE NEEDS KNOWN, AAOX 2-3, TRACH TO VENT, FIO2 40 RR 12 PEEP 5. O2 SAT AT 100%. NO SIGNS OF RESPIRATORY DISTRESS. LEFT MIDLINE INFUSING NS AT 10 ML/HR. G TUBE IN PLACE INFUSING VITAL AF 1.2 AT 25 ML/HR, NOTED 10 ML RESIDUALS. WHITMORE CATH IN PLACE. SACRAL WOUNDS AND WOUND ON LEFT AND RIGHT HIP AND LEFT ELBOW DRESSINGS INTACT. SR/BBB ON TELE, WILL CONTINUE TO MONITOR. PATIENT C/O PAIN.
[2019-01-29 20:00] VITALS: BP 122/74
--- NOTE | 2019-01-29 20:08 | NUR ---
PATIENT C/O PAIN GAVE MORPHINE. ALL SCHEDULED MEDICATIONS GIVEN.
--- NOTE | 2019-01-29 22:00 | NUR ---
REPOSITIONED PATIENT FOR COMFORT, SAMIR CARE PROVIDED, SUCTIONED PATIENT X 1, WHITE SECRETIONS NOTED, O2SAT AT 100%.
[2019-01-30] VITALS (14 sets, daily range): BP systolic 105–126; BP diastolic 70–86
--- NOTE | 2019-01-30 00:20 | NUR ---
TURNED AND REPOSITIONED PATIENT, PROVIDED SAMIR CARE, CHANGED DRESSING ON SACRAL AND LEFT ELBOW, PATIENT ASKED WHEN DILAUDID DUE NEXT EXPLAINED TO PATIENT IN ABOUT ANOTHER HOUR, PATIENT UNDERSTOOD.
[2019-01-30] MEDS: Z-GUARD PASTE TP SCH ×2 (00:28→13:18)
[2019-01-30] MEDS: HYDROmorphone 1 MG/ML AMP IVP PRN ×5 (01:35→18:08)
--- NOTE | 2019-01-30 01:35 | NUR ---
GAVE DILAUDID FOR SEVERE PAIN
--- NOTE | 2019-01-30 04:00 | NUR ---
V/S TAKEN ALL STABLE
[2019-01-30] MEDS: MEROPENEM 1,000 MG in NACL 0.9% 100 ML IV SCH ×3 (04:15→20:50)
[2019-01-30] MEDS: METOCLOPRAMIDE 10 MG/10 ML SYRP UDC GT SCH ×3 (06:00→16:30)
[2019-01-30] MEDS: LEVOTHYROXINE 0.075 MG TAB GT SCH (06:00)
--- NOTE | 2019-01-30 06:03 | NUR ---
PATIENT C/O PAIN AND STOMACH HURTING WILL GIVE REGLAN AND DILAUDID
[2019-01-30] MEDS: BLOOD GLUCOSE MONITORING 1 DEV DEV FS SCH ×4 (06:21→20:45)
[2019-01-30] MEDS: ALBUTEROL SULFATE/IPRATROPIU 3 ML SOL IH SCH ×3 (06:34→19:11)
--- NOTE | 2019-01-30 06:35 | NUR ---
RECEIVED PT ON CARESCAPE ON DOCUMENTED SETTINGS, ALARMS ARE ON AND AUDIBLE, PTS TRACH SHILEY 6 IS SECURE , PT IN HF AWAKE, BS RHOJORDII SX PT , HHN GIVEN I\L WITH 3 MG DUONEB, CONT POX IN PLACE, BMV HOB VENT PLUGGED INTO RED OUTLET
--- NOTE | 2019-01-30 07:15 | NUR ---
TRANSFERRED PATIENT TO ICU, FRAN VILLASEÑOR, BEDSIDE REPORT GIVEN TO ICU NURSE, GRANT.
--- NOTE | 2019-01-30 07:20 | NUR ---
RECEIVED BEDSIDE REPORT FROM PM SHIFT RN , PT AWAKE, ALERT. MOUTH WORDS. TRACH TO VENT, FIO2 40, TV 400, RR 12 PEEP 5. O2 SAT AT 100%. NO SIGNS OF RESPIRATORY DISTRESS. LEFT MIDLINE INFUSING NS AT 10 ML/HR. G TUBE IN PLACE INFUSING VITAL AF 1.2 AT 25 ML/HR. WHITMORE CATH IN PLACE. MULTIPLE WOUND NOTED , SEE WOUND ASSESSMENT. WILL CONTINUE TO MONITOR. PATIENT C/O PAIN BUT SHE DOES NOT WANT TO TAKE MORPHINE, DILAUDID WAS GIVEN AT 0600,IT WILL BE DUE [id number], PT USE HER MOUTH WORDS TO TELL ME SHE WILL WAIT.
--- NOTE | 2019-01-30 08:15 | NUR ---
turned and repositioned pt , oral care given. tube feeding residual checked 20 cc, returned back.
[2019-01-30] MEDS: HYDRAGUARD CREAM TP SCH (09:00)
[2019-01-30] MEDS: HYDROXYCHLOROQUINE 200 MG TAB GT SCH (09:13)
[2019-01-30] MEDS: levETIRAcetam 100 MG/ML ORASYR GT SCH ×2 (09:13→20:48)
[2019-01-30] MEDS: FLUCONAZOLE 100 MG TAB GT SCH (09:14)
[2019-01-30] MEDS: SERTRALINE 50 MG TAB GT SCH (09:15)
[2019-01-30] MEDS: SODIUM BICARBONATE 650 MG TAB GT SCH ×2 (09:15→20:49)
[2019-01-30] MEDS: ZINC SULF 220 MG CAP GT SCH (09:15)
[2019-01-30] MEDS: GABAPENTIN 300 MG CAP GT SCH (09:15)
[2019-01-30] MEDS: TOPIRAMATE 25 MG TAB GT SCH ×2 (09:16→20:49)
[2019-01-30] MEDS: MULTIVITAMIN/MINERALS 15 ML UDBTL GT SCH (09:16)
[2019-01-30] MEDS: PANTOPRAZOLE 40 MG INJ VIAL IVP SCH (09:16)
[2019-01-30] MEDS: LINEZOLID 600MG PREMIX 300 ML IV SCH ×2 (09:17→23:05)
--- NOTE | 2019-01-30 10:15 | NUR ---
suctioned pt with moderate white creamy secretion, pt c/o pain, pain medication given. pt tolerated well.
[2019-01-30 10:21] LABS: ANION GAP 13.8 (8-16); CARBON DIOXIDE 22.3 mmol/L (21-32); CREATININE 0.6 mg/dL (0.6-1.3); POTASSIUM 4.1 mmol/L (3.5-5.1)
[2019-01-30 10:28] LABS: MAGNESIUM 1.8 mg/dL (1.8-2.4); PHOSPHORUS 3.2 mg/dL (2.5-4.9)
[2019-01-30] MEDS: NACL 0.9% IV SCH (11:06)
[2019-01-30] MEDS: AMIKACIN IV SCH (11:06)
--- NOTE | 2019-01-30 12:30 | NUR ---
turned and repositioned pt. dressing changed. pt tolerated well. no s/s of respiratory distress noted.
[2019-01-30] MEDS: MORPHINE SULFATE 2 MG/ML SYR IVP PRN ×2 (13:13→21:31)
[2019-01-30] MEDS: THERAHONEY GEL 42.5 GM TP SCH (13:18)
--- NOTE | 2019-01-30 14:47 | NUR ---
pt's family at bedside. questions answered.
[2019-01-30] MEDS: traMADol 50 MG TAB GT PRN (15:59)
--- NOTE | 2019-01-30 16:15 | NUR ---
turned and repositioned pt. no s/s of respiratory distress noted. suctioned pt with creamy secretion. oral care given.
--- NOTE | 2019-01-30 18:20 | NUR ---
turned and repositioned pt. suctioned pt with creamy secretion. no s/s of respiratory distress noted.
--- NOTE | 2019-01-30 19:21 | NUR ---
Received pt stable on vent support at documented settings, suctioned small amount of thin clear white secretions, hhn tx given, tolerated well, no resp distress or SOB noted at this time, Shiley 6 trach secured/patent/midline, alarms set and audible, ambu bag at bedside, vent plugged into red outlet, cont pulse ox on, will cont to monitor.
--- NOTE | 2019-01-30 19:30 | NUR ---
RECEIVED REPORT FROM AM NURSE. INITIAL ASSESSMENT COMPLETED. ATTACHED TO VEHICLE BODY BUILDER, PULSE OXIMETER. IV ACCESS DOUBLE LUMEN LEFT UPPER ARM, PATENT, INTACT. GT IN PLACE, CONTINUOUS GT FEEDING. NO GASTRIC RESIDUAL AT THIS TIME. OSTOMY BAG IN PLACE, WHITMORE CATH IN PLACE. BED IN LOW POSITION. SAFETY MEASURE ENSURE. WILL CONTINUE TO MONITOR. Addendum: 01/31/19 at 0542 by Margot Martinez RN TRACH TO VENT. FIO2 24% TV 400 AC 12 PEEP 5
--- NOTE | 2019-01-30 22:30 | NUR ---
DR. HAYS IN THE UNIT. UPDATED OF PATIENT'S CONDITION.
[2019-01-31] VITALS (15 sets, daily range): BP systolic 96–123; BP diastolic 62–73
--- NOTE | 2019-01-31 01:00 | NUR ---
WOUND ASSESSMENT DONE. WILL CONTINUE TO MONITOR.
[2019-01-31] MEDS: Z-GUARD PASTE TP SCH ×2 (01:13→12:48)
[2019-01-31] MEDS: HYDROmorphone 1 MG/ML AMP IVP PRN ×4 (01:55→23:37)
[2019-01-31] MEDS: AMIKACIN IV SCH ×2 (04:10→23:29)
[2019-01-31] MEDS: traMADol 50 MG TAB GT PRN ×2 (04:10→11:40)
[2019-01-31] MEDS: NACL 0.9% IV SCH ×2 (04:10→23:29)
--- NOTE | 2019-01-31 05:33 | NUR ---
, ASHLEY AT BEDSIDE. PT AWAKE. NO SIGNS OF DISTRESS, MORNING CARE DONE.
[2019-01-31 05:44] LABS: BASOPHILS % (AUTO) 0.3 % (0.0-2.0); EOSINOPHILS # (AUTO) 0.4 K/uL (0-0.4); EOSINOPHILS % (AUTO) 5.4 % (0.0-4.0); HEMOGLOBIN 8.2 g/dL (12.0-16.0); LYMPHOCYTES % (AUTO) 12.7 % (20.5-51.1); MEAN CORPUSCULAR HEMOGLOBIN 28 pg (27-31); MEAN CORPUSCULAR HGB CONC 31 g/dL (33-37); MEAN CORPUSCULAR VOLUME 88.2 fL (80-94); MONOCYTES # (AUTO) 0.4 K/uL (0.8-1.0); MONOCYTES % (AUTO) 5.2 % (1.7-9.3); NEUTROPHILS # (AUTO) 6.2 K/uL (1.8-7.7); NEUTROPHILS % (AUTO) 76.4 % (42.2-75.2); PLATELET COUNT (AUTO) 311 K/uL (140-450); RED BLOOD CELL COUNT(AUTO) 2.95 MIL/uL (4.20-5.40); RED CELL DISTRIBUTION WIDTH 18.2 % (11.6-13.7); WHITE BLOOD COUNT (AUTO) 8.1 K/uL (4.8-10.8)
[2019-01-31 05:47] LABS: ANION GAP 13.3 (8-16); CARBON DIOXIDE 22.5 mmol/L (21-32); CREATININE 0.6 mg/dL (0.6-1.3); POTASSIUM 3.8 mmol/L (3.5-5.1)
[2019-01-31 05:49] LABS: MAGNESIUM 1.7 mg/dL (1.8-2.4); PHOSPHORUS 3.6 mg/dL (2.5-4.9)
[2019-01-31] MEDS ORDERED: MAG SULF 2000 MG/WATER PREMIX 50 ML IV ONE (05:55)
[2019-01-31] MEDS: LEVOTHYROXINE 0.075 MG TAB GT SCH (06:10)
[2019-01-31] MEDS: MEROPENEM 1,000 MG in NACL 0.9% 100 ML IV SCH ×3 (06:10→21:09)
[2019-01-31] MEDS: BLOOD GLUCOSE MONITORING 1 DEV DEV FS SCH ×4 (06:10→21:39)
[2019-01-31] MEDS: ALBUTEROL SULFATE/IPRATROPIU 3 ML SOL IH SCH ×3 (06:42→19:00)
--- NOTE | 2019-01-31 06:43 | NUR ---
RECEIVED PT ON DOCUMENTED SETTINGS ON CARESCAPE, ALARMS ARE ON AND FUNCTIONAL, PTS TRACH SHILEY 6 IS SECURE, BS CLEAR PT IN HF ASLEEP, HHN GIVEN I\L WITH 3 MG DUONEB, VENT PLUGGED INTO RED OUTLET , BMV HOB, AIRWAY IS PATENT
[2019-01-31] MEDS: METOCLOPRAMIDE 10 MG/10 ML SYRP UDC GT SCH ×3 (07:24→18:22)
--- NOTE | 2019-01-31 07:30 | NUR ---
RECEIVED REPORT FROM SKINNER PELTS NURSE AT BEDSIDE, PT IS RESTING IN BED, AAOX4, APHASIC, MOUTH WORDS, ABLE TO FOLLOW COMMANDS AND MAKE NEEDS KNOWN, VSS, DENIES PAIN, TRACH TO VENT WITH SETING FIO2 24, TV 400, R 12, PEEP 5, NO S/S OF DISTRESS, RHONCHI LUNG SOUNDS SINDY, O2 SAT 100%, SR WITH BBB ON FOOT WORKER, SOFT ABDOMEN WITH ACTIVE BOWEL SOUNDS, GT IN PLACE WITH FEEDING VITAL AF AT 25 ML/HR, 5ML RESIDUALS NOTED, F/C IN PLACE WITH CLEAR YELLOW URINE VIA GRAVITY, GENERALIZED WEAKNESS NOTED, SKIN IS WARM AND DRY TO TOUCH, OPEN WOUND PRESENT (SEE WOUND ASSESSMENT), PICC LINE TO LEFT UPPER ARM, PATENT AND SL. HOB ELEVATED 30 DEGREES, POSITION CHANGED FOR COMFORT, SAFETY MEASURES IN PLACE, CALL LIGHT WITHIN REACH, WILL CONTINUE TO MONITOR.
--- NOTE | 2019-01-31 07:30 | NUR ---
REPORT GIVEN TO JAY CALHOUN FOR CONTINUITY OF CARE.
[2019-01-31] MEDS: LINEZOLID 600MG PREMIX 300 ML IV SCH ×2 (08:13→21:08)
[2019-01-31] MEDS: SODIUM BICARBONATE 650 MG TAB GT SCH ×2 (08:14→21:09)
[2019-01-31] MEDS: HYDROXYCHLOROQUINE 200 MG TAB GT SCH (08:14)
[2019-01-31] MEDS: PANTOPRAZOLE 40 MG INJ VIAL IVP SCH (08:14)
[2019-01-31] MEDS: ZINC SULF 220 MG CAP GT SCH (08:14)
[2019-01-31] MEDS: GABAPENTIN 300 MG CAP GT SCH (08:14)
[2019-01-31] MEDS: SERTRALINE 50 MG TAB GT SCH (08:14)
[2019-01-31] MEDS: levETIRAcetam 100 MG/ML ORASYR GT SCH ×2 (08:14→21:09)
[2019-01-31] MEDS: MULTIVITAMIN/MINERALS 15 ML UDBTL GT SCH (08:15)
[2019-01-31] MEDS: HYDRAGUARD CREAM TP SCH (08:15)
[2019-01-31] MEDS: TOPIRAMATE 25 MG TAB GT SCH ×2 (08:15→21:09)
[2019-01-31] MEDS: FLUCONAZOLE 100 MG TAB GT SCH (08:16)
--- NOTE | 2019-01-31 08:30 | NUR ---
SCHEDULED MEDICATION GIVEN, PT TOLERATED WELL, ORAL CARE PROVIDED, POSITION CHANGED FOR OFF LOAD PRESSURE.
[2019-01-31] MEDS: MORPHINE SULFATE 2 MG/ML SYR IVP PRN (11:41)
--- NOTE | 2019-01-31 12:00 | NUR ---
NO S/S OF DISTRESS, C/O PAIN 07/14, WILL MEDICATED, VSS, ORAL CARE PROVIDED, POSITION CHANGED FOR OFF LOAD PRESSURE.
--- NOTE | 2019-01-31 12:15 | NUR ---
RECEIVED REPORT FROM JAY PRAKASH. PATIENT AWAKE, ABLE TO MAKE NEEDS KNOWN, WITH TRACHEOSTOMY TO VENTILATOR FIO2 24% RATE 12 TIDAL VOLUME 400 PEEP5, SO2 100%, CLEAR BREATH SOUNDS ON ALL DAVID, SINUS RHYTHM ON MONITOR, WITH PEG TUBE TOLERATING VITAL AF ENTERAL 25ML/HR., WITH COLOSTOMY, WITH FR.16 WHITMORE CATHETER YERLLOW WITH SEDIMENTS NOTED, WITH PICC LINE LEFT UPPER ARM 2 LUMENS-SITE ASYMPTOMATIC Addendum: 01/31/19 at 1306 by Aurora Lopez RN WITH PRESSURE WOUNDS LEFT AND RIGH HIP, LEFT ELBOW, SACRAL AREA-ALL WITH CLEAN INTACT DRESSING
[2019-01-31] MEDS: THERAHONEY GEL 42.5 GM TP SCH ×2 (12:47→13:00)
--- NOTE | 2019-01-31 13:04 | NUR ---
[place] [facility] [phone] AND SPOKE TO CARY, ALL TRANSFER MEDICAL RECORDS , H&P, MEDICATION, LABS, MICROBILOGY FAXED [phone], WILL CALL BACK FOR BED.
[2019-01-31] MEDS ORDERED: AMIKACIN PER PHARMACY MC PRN (13:10)
--- NOTE | 2019-01-31 15:35 | NUR ---
REPORT GIVEN TO RECEIVING PLASTIC SURGERY SPECIALIST. PATIENT TRANSFERRED TO TELEMETRY UNIT VIA ICU BED, ACCOMPANIED BY RT AND RN. PATIENT ALERT, VITAL SIGNS STABLE, HEART RATE 83 BP 103/63 SO2 99%
--- NOTE | 2019-01-31 15:40 | NUR ---
RECEIVED BEDSIDE REPORT FROM SNELLER HAND, PT IN STABLE CONDITION, PT AWAKE AND ALERT X3, PT TRACH TO VENT, VENT SETTINGS FIO2 24%, VT 400, RATE 12, FLOW 50, PEEP 5CM, PEAK MAX 50, NO SIGNS OF DISTRESS ON VENT, ASPIRATION PRECAUTIONS IN PLACE, SKIN HAS WOUND, SACRAL WOUND, DRESSING CLEAN AND DRY, PICC L UPPER ARM, SALINE LOCK, CLEAN DRY AND INTACT, PT BEDBOUND, FALL RISK PRECAUTION IN PLACE, PT INCONTINENT, WHITMORE AND COLOSTOMY DRAINING WELL, PT ON HILL ROM BED, G TUBE FEEDING INFUSING VITAL AF 25ML WITH FWF 150ML Q4H, TELE MONITOR IN PLACE, CALL LIGHT WITHIN REACH, WILL CONTINUE TO MONITOR
[2019-01-31] MEDS ORDERED: MORPHINE SULFATE 2 MG/ML SYR IVP PRN (16:00)
--- NOTE | 2019-01-31 16:46 | NUR ---
01/31/19 RD FOLLOW UP COMPLETED PLEASE REFER TO NUTRITION ASSESSMENT UNDER CARE ACTIVITY FOR ESTIMATED NUTRITIONAL NEEDS. 1. RECOMMEND GLUCERNA 1.2 AT 65 ML/HR -THIS WILL PROVIDED 1560 ML OF VOLUME, 1872 KCAL, 93 GM PROTEIN. IT WILL MEET 92% OF ENERGY NEED AND 100% PROTEIN NEED. 2. RECOMMEND FWF 130 ML Q4H 3. RECOMMEND VITAMIN C 1000 MG BID 4. RECOMMEND GEGE 5. RD TO FOLLOW-UP 2-3 DAYS, HIGH RISK VICTOR MANUEL AYALA RD
--- NOTE | 2019-01-31 17:57 | NUR ---
PATIENT LAYING IN BED. NO RESP DISTRESS ON TRACH TO VENT. WILL CONTINUE TO MONITOR THE PATIENT.
--- NOTE | 2019-01-31 19:25 | NUR ---
GAVE BED SIDE REPORT TO BIT SHARPENER RN, PT ENDORSED IN STABLE CONDITION
--- NOTE | 2019-01-31 19:26 | NUR ---
RECEIVED BEDSIDE REPORT FROM HORTENSIA THOMPSON. PT ASLEEP IN BED. EASILY AROUSABLE. NO SIGN OF RESP DISTRESS. TRACH TO VENT. FIO2 24 VT 400 RATE 12 FLOW 50 PEEP 5 PMAX 50. PICC LEFT UPPER ARM SL. IV CLEAN DRY INTACT. GTUBE IN PLACE. CLEAN DRY, PATENT. WHITMORE IN PLACE. CLEAN DRY, PATENT. COLOSTOMY IN PLACE. CLEAN DRY, PATENT. R HIP AND SACRAL PRESSURE ULCER. DRESSING CLEAN DRY INTACT. BED IN LOWEST POSITION. CALL LIGHT WITHIN REACH. WILL CONTINUE TO MONITOR. PT IN STABLE CONDITION. Addendum: 01/31/19 at 2213 by Jessika Arriola RN ADD: PT ON CONTACT PRECAUTIONS. PROTOCOL ALREADY IN PLACE.
--- NOTE | 2019-01-31 21:00 | NUR ---
G TUBE SWOOSH HEARD. G TUBE PATENT. NO RESIDUAL. ADMINISTERED MEDS. FLUSHED BEFORE AND AFTER WITH NS. PT TOLERATED WELL. NO COMPLAINTS AT THIS TIME. WILL CONTINUE TO MONITOR.
--- NOTE | 2019-01-31 22:12 | NUR ---
PT SLEEPING IN BED. NO SIGNS OF RESP DISTRESS. NO PAIN NOTED. BED IN LOWEST POSITION. CALL LIGHT WITHIN REACH. WILL CONTINUE TO MONITOR.
--- NOTE | 2019-01-31 23:13 | NUR ---
PT SLEEPING IN BED. EASILY AWOKEN WHEN SPOKEN TO. NO SIGNS OF RESP DISTRESS. NO COMPLAINTS AT THIS TIME. WILL CONTINUE TO MONITOR.
[2019-02-01] MEDS: Z-GUARD PASTE TP SCH ×2 (01:00→12:07)
--- NOTE | 2019-02-01 01:30 | NUR ---
PT SLEEPING IN BED. NO SIGNS OF DISTRESS. WILL CONTINUE TO MONITOR. BED IN LOWEST POSITION. CALL LIGHT WITHIN REACH.
--- NOTE | 2019-02-01 02:59 | NUR ---
PT ASLEEP IN BED. EASILY AWOKEN UPON CALLING NAME. NO SIGNS OF RESP DISTRESS. WILL CONTINUE TO MONITOR PT.
[2019-02-01 04:00] VITALS: BP 106/68
--- NOTE | 2019-02-01 04:35 | NUR ---
ADMINISTERED MEDS. EDUCATED ON SIDE EFFECTS. PT UNABLE TO VERBALIZE, TRACH TO VENT. PT TOLERATED WELL. BED IN LOWEST POSITION. CALL LIGHT WITHIN REACH. WILL CONTINUE TO MONITOR.
[2019-02-01] MEDS: MEROPENEM 1,000 MG in NACL 0.9% 100 ML IV SCH ×2 (04:47→12:07)
--- NOTE | 2019-02-01 05:54 | NUR ---
PT REFUSED TO BE TURNED. PT IN STABLE CONDITION. CALL LIGHT WITHIN REACH. BED IN LOW POSITION. WILL CONTINUE TO MONITOR.
[2019-02-01] MEDS: BLOOD GLUCOSE MONITORING 1 DEV DEV FS SCH ×2 (06:06→11:37)
[2019-02-01] MEDS: LEVOTHYROXINE 0.075 MG TAB GT SCH (06:06)
[2019-02-01] MEDS: METOCLOPRAMIDE 10 MG/10 ML SYRP UDC GT SCH ×2 (06:26→11:56)
[2019-02-01] MEDS: ALBUTEROL SULFATE/IPRATROPIU 3 ML SOL IH SCH ×2 (06:36→13:52)
--- NOTE | 2019-02-01 06:36 | NUR ---
RECEIVED PT ON CARESCAPE ON DOCUMENTED SETTINGS, ALARMS ARE ON AND AUDIBLE, PTS TRACH CHAPARRITA 6 IS SECURE PT INHF ASLEEP BS RHONCI SX PT, HHN GVIEN I\L WITH 3 MG DUONEB, BMV HOB, VENT PLUGGED INTO RED OUTLET, CONT. POX IN PLACE
--- NOTE | 2019-02-01 06:45 | NUR ---
PT LAYING IN BED. ADMINISTERED MEDS. EDUCATED ON SIDE EFFECTS. SWOOSH CHECK HEARD FOR PLACEMENT. FLUSH BEFORE AND AFTER MED ADMINISTRATION. PT TOLERATED WELL. WILL CONTINUE TO MONITOR.
--- NOTE | 2019-02-01 07:19 | NUR ---
ENDORSED PT TO AM SHIFT RN. PT IN STABLE CONDITION. AM SHIFT WILL GIVE CONTINUITY OF CARE.
--- NOTE | 2019-02-01 07:20 | NUR ---
RECEIVED BEDSIDE REPORT FROM AIRCRAFT MAINTENANCE INSTRUCTOR NURSE. PATIENT IS AWAKE, ALERT AND ORIENTEDX2. NO SIGNS OF DISTRESS ON TRACH TO VENT. VENT SETTINGS ARE FIO2 24 VT 400 RATE 12 FLOW 50 PEEP 5 PMAX 50. ON TELE. [facility] PICC SL. CLEAN, DRY AND INTACT. PATIENT IS BEDBOUND, FALL RISK PROTOCOL IN PLACE. SKIN HAS SACRAL WOUND, DRESSING CLEAN,DRY AND INTACT. ON [facility] BED. PATIENT INCONTINENT W COLOSTOMY AND WHITMORE. BOTH PATENT. GTUBE IN PLACE INFUSING GLUCERNIA 1.2 50 WITH H20 FLUSH 150 Q 4HRS. CLEAN AND DRY. BED IN LOW POSITION. WILL CONTINUE TO MONITOR THE PATIENT. Addendum: 02/01/19 at 1445 by Maritza Randolph RN PATIENT ALSO HAS R AND L HIP WOUNDS, AND PERINEAL WOUND. DRESSINGS INTACT. L ARM AND CHEST SCABS, DRESSING INTACT
[2019-02-01 08:00] VITALS: BP 104/68
[2019-02-01] MEDS: ZINC SULF 220 MG CAP GT SCH (08:54)
[2019-02-01 08:55] LABS: ANION GAP 12.6 (8-16); CARBON DIOXIDE 23.7 mmol/L (21-32); CREATININE 0.7 mg/dL (0.6-1.3); POTASSIUM 4.3 mmol/L (3.5-5.1)
[2019-02-01] MEDS: TOPIRAMATE 25 MG TAB GT SCH (08:55)
[2019-02-01] MEDS: FLUCONAZOLE 100 MG TAB GT SCH (08:55)
[2019-02-01] MEDS ORDERED: METO5SOL20 GT (08:55)
[2019-02-01] MEDS ORDERED: Hydraguard TP ×3 (08:55)
[2019-02-01] MEDS ORDERED: LORA-476 GT (08:55)
[2019-02-01] MEDS: GABAPENTIN 300 MG CAP GT SCH (08:55)
[2019-02-01] MEDS ORDERED: Therahoney Gel TP ×3 (08:55)
[2019-02-01] MEDS ORDERED: GLUC-805 FS (08:55)
[2019-02-01] MEDS ORDERED: D50SYR IVP (08:55)
[2019-02-01] MEDS ORDERED: TRAM50TA3 GT (08:55)
[2019-02-01] MEDS ORDERED: ZGUARD TP (08:55)
[2019-02-01] MEDS ORDERED: ALBU3SOL83 IH (08:55)
[2019-02-01] MEDS ORDERED: KEP500L GT (08:55)
[2019-02-01] MEDS ORDERED: MORP2SOL18 IVP (08:55)
[2019-02-01] MEDS: levETIRAcetam 100 MG/ML ORASYR GT SCH (08:55)
[2019-02-01] MEDS ORDERED: COL100L GT (08:55)
[2019-02-01] MEDS: SERTRALINE 50 MG TAB GT SCH (08:55)
[2019-02-01] MEDS: HYDROXYCHLOROQUINE 200 MG TAB GT SCH (08:55)
[2019-02-01] MEDS ORDERED: HUMSLIDE SUBQ (08:55)
[2019-02-01] MEDS ORDERED: GABA-638 GT (08:55)
[2019-02-01] MEDS: PANTOPRAZOLE 40 MG INJ VIAL IVP SCH (08:55)
[2019-02-01] MEDS: SODIUM BICARBONATE 650 MG TAB GT SCH (08:55)
[2019-02-01] MEDS: MULTIVITAMIN/MINERALS 15 ML UDBTL GT SCH (08:56)
[2019-02-01] MEDS: LINEZOLID 600MG PREMIX 300 ML IV SCH (08:56)
[2019-02-01] MEDS: HYDRAGUARD CREAM TP SCH (08:56)
[2019-02-01 08:57] LABS: BASOPHILS % (AUTO) 0.3 % (0.0-2.0); EOSINOPHILS # (AUTO) 0.4 K/uL (0-0.4); EOSINOPHILS % (AUTO) 4.6 % (0.0-4.0); HEMATOCRIT 24.3 % (36-48); HEMOGLOBIN 7.7 g/dL (12.0-16.0); LYMPHOCYTES # (AUTO) 0.9 K/uL (2.5-16.5); LYMPHOCYTES % (AUTO) 12.1 % (20.5-51.1); MEAN CORPUSCULAR HEMOGLOBIN 28 pg (27-31); MEAN CORPUSCULAR HGB CONC 32 g/dL (33-37); MEAN CORPUSCULAR VOLUME 88.7 fL (80-94); MONOCYTES # (AUTO) 0.4 K/uL (0.8-1.0); MONOCYTES % (AUTO) 5.1 % (1.7-9.3); NEUTROPHILS % (AUTO) 77.9 % (42.2-75.2); PLATELET COUNT (AUTO) 294 K/uL (140-450); RED BLOOD CELL COUNT(AUTO) 2.74 MIL/uL (4.20-5.40); RED CELL DISTRIBUTION WIDTH 17.8 % (11.6-13.7); WHITE BLOOD COUNT (AUTO) 7.7 K/uL (4.8-10.8)
[2019-02-01 09:02] LABS: MAGNESIUM 2.2 mg/dL (1.8-2.4); PHOSPHORUS 3.4 mg/dL (2.5-4.9)
[2019-02-01] MEDS ORDERED: LACT10CA1 GT (09:04)
[2019-02-01] MEDS ORDERED: AMIK500I IJ (09:04)
[2019-02-01] MEDS ORDERED: MERO1PDS2 IV (09:04)
[2019-02-01] MEDS ORDERED: AMIK500I IV (09:05)
[2019-02-01] MEDS: HYDROmorphone 1 MG/ML AMP IVP PRN ×2 (09:16→13:33)
--- NOTE | 2019-02-01 09:20 | NUR ---
CHECKED GTUBE USING SWOOSH. SWOOSH HEARD. NO RESIDUAL. CRUSHED AND ADMINISTERED MEDS. FLUSHED BEFORE AND AFTER. GAVE PRN DILAUDID B/P 111/[address] BURGESS SAID OK TO GIVE DILAUDID. EDUCATED PATIENT ON SIDE EFFECTS. PATIENT UNABLE TO VERBALIZE UNDERSTANDING. WILL CONTINUE TO MONITOR THE PATIENT.
--- NOTE | 2019-02-01 10:16 | NUR ---
PATIENT IS SLEEPING. NO SIGNS OF DISTRESS. WILL CONTINUE TO MONITOR THE PATIENT
--- NOTE | 2019-02-01 10:24 | NUR ---
LATE ENTRY FOR 01/31/18 1530 FAXED TO [facility] [place] AND PT IS COLONIZED.
[2019-02-01] MEDS: traMADol 50 MG TAB GT PRN (11:57)
[2019-02-01 12:00] VITALS: BP 111/69
[2019-02-01] MEDS: THERAHONEY GEL 42.5 GM TP SCH (12:07)
--- NOTE | 2019-02-01 12:07 | NUR ---
CHECKED GTUBE PLACEMENT USING SWOOSH. SWOOSH HEARD. NO RESIDUAL. CRUSHED AND ADMINISTERED MEDS. FLUSHED BEFORE AND AFTER. PATIENT ASKED FOR PRN MUSCLE RELAXANT. PATIENT TOLERATED WELL. EDUCATED ON SIDE EFFECTS. WILL CONTINUE TO MONITOR
--- NOTE | 2019-02-01 14:33 | NUR ---
GAVE TELEPHONE REPORT TO JAY DAY. GAVE CALL BACK NUMBER. ALL QUESTIONS ANSWERED AT THIS TIME.
--- NOTE | 2019-02-01 15:20 | NUR ---
GAVE REPORT TO [facility] STAFF. [facility] STAFF HERE TO DIVE SUPERINTENDENT PATIENT. EDUCATED PATIENT ON DISEASE PROCESS, ABN S/SX, WHEN TO GO TO THE ER, EDUCATED ON FOLLOW UP W PCP, EDUCATED ON WOUND CARE, EDUCATED ON MEDS, EDUCATED ON REFUSAL OF PNA AND FLU VACCINES. NO CALL BACK FROM FAMILY, TOLD PATIENT I WILL LET THEM KNOW IF THEY CALL BACK THAT SHE WAS TRANSFERRED TO [facility]. PER [facility] OK TO KEEP WHITMORE AND PICC LINE. PATIENT UNABLE TO SIGN. PATIENT LEFT IN STABLE CONDITION W [facility] STAFF. TELE MONITOR REMOVED, ID BANDS REMOVED.
[2019-02-01] MEDS ORDERED: NACL 0.9% IV SCH (23:00)
[2019-02-01] MEDS ORDERED: AMIKACIN IV SCH (23:00)
== END 2019-02-01 15:20 | DRG 870 ==
LOC: MED 09:38 → MIC 12:17 → MTU 01-22 19:27 → MIC 01-30 07:17 → MTU 01-31 15:35
PROVIDERS: ADMIT General Practice; ATTEND General Practice
PROC: 5A1955Z Respiratory Ventilation, Greater than 96 Consecutive Hours (ICD-10-PCS; principal; 2019-01-20)
PROC: 05HY33Z Insertion of Infusion Device into Upper Vein, Percutaneous Approach (ICD-10-PCS; 2019-01-22)
PROC: 02PY33Z Removal of Infusion Device from Great Vessel, Percutaneous Approach (ICD-10-PCS; 2019-01-22)
DX: A41.9 Sepsis, unspecified organism (principal); L89.224 Pressure ulcer of left hip, stage 4; L89.154 Pressure ulcer of sacral region, stage 4; K85.90 Acute pancreatitis without necrosis or infection, unspecified; N17.0 Acute kidney failure with tubular necrosis; J18.1 Lobar pneumonia, unspecified organism; I50.43 Acute on chronic combined systolic (congestive) and diastolic (congestive) heart failure; G93.41 Metabolic encephalopathy; I42.9 Cardiomyopathy, unspecified; N39.0 Urinary tract infection, site not specified; M33.13 Other dermatomyositis without myopathy; I13.0 Hypertensive heart and chronic kidney disease with heart failure and stage 1 through stage 4 chronic kidney disease, or unspecified chronic kidney disease; M33.90 Dermatopolymyositis, unspecified, organ involvement unspecified; E87.0 Hyperosmolality and hypernatremia; E44.0 Moderate protein-calorie malnutrition; J96.11 Chronic respiratory failure with hypoxia; N13.30 Unspecified hydronephrosis; M32.9 Systemic lupus erythematosus, unspecified; E11.69 Type 2 diabetes mellitus with other specified complication; E11.40 Type 2 diabetes mellitus with diabetic neuropathy, unspecified; E11.51 Type 2 diabetes mellitus with diabetic peripheral angiopathy without gangrene; Z93.1 Gastrostomy status; E83.41 Hypermagnesemia; Z93.0 Tracheostomy status; L89.210 Pressure ulcer of right hip, unstageable; E03.9 Hypothyroidism, unspecified; E11.9 Type 2 diabetes mellitus without complications; E86.0 Dehydration; F32.9 Major depressive disorder, single episode, unspecified; G40.909 Epilepsy, unspecified, not intractable, without status epilepticus; Z86.73 Personal history of transient ischemic attack (TIA), and cerebral infarction without residual deficits; Z88.2 Allergy status to sulfonamides; R65.20 Severe sepsis without septic shock; N18.9 Chronic kidney disease, unspecified; R74.0 Nonspecific elevation of levels of transaminase and lactic acid dehydrogenase [LDH]; Z93.3 Colostomy status; Z68.21 Body mass index [BMI] 21.0-21.9, adult; Z90.49 Acquired absence of other specified parts of digestive tract; D64.9 Anemia, unspecified; Y92.89 Other specified places as the place of occurrence of the external cause; K57.90 Diverticulosis of intestine, part unspecified, without perforation or abscess without bleeding
CPT/HCPCS: 36415; 71045; 74018; 74430; 76770; 76856; 80048; 80053; 80150; 80200; 81001; 81025; 82140; 82272; 82550; 82553; 82607; 82728; 82746; 82948; 83036; 83540; 83605; 83690; 83735; 83880; 84100; 84484; 84703; 85025; 85045; 85610; 85730; 86160; 86704; 86706; 86708; 86709; 86803; 87040; 87070; 87075; 87081; 87086; 87186; 87205; 87340; 87804; 89220; 92526; 93005; 93925; 94002; 94003; 94640; 99285; C1751; C9113; J0278; J1170; J1644; J1720; J1815; J2020; J2060; J2185; J2270; J2405; J2543; J3260; J3370; J3411; J3475; J3480; J3490; J7030; J7042; J7060; J7620; J8597; Q0092; Q9967

== ENCOUNTER 2019-06-03 11:53 | Emergency (ER) | payer OTHER ==
[~2019-06-03] VITALS: Ht 152.4 cm; Wt 61.2 kg
[~2019-06-03 11:53] MED LIST changes: +AMIK500I IV; -BACL10TA4 GT; -BEN50 GT; +D50SYR IVP; -FENT100T TD; -GABA400C GT; +GLUC-805 FS; +HUMSLIDE SUBQ; -HYDR1LIQ6 GT; +LACT10CA1 GT; -LACT10SO11 PO; -LINE600T GT; -LOSA25TA1 PO; +MERO1PDS2 IV; -METO-485 GT; +MORP2SOL18 IVP; -PIPE1SOL IV; -TOBRAMYCIN PER PHARMACY MC; -TRAM50TA1 GT
--- NOTE | 2019-06-03 11:55 | NUR ---
PATIENT BIBA AND TAKEN TO ER BED 3. RN IS EVALUATING AT BEDSIDE
[2019-06-03 12:14] VITALS: BP 114/60
[2019-06-03 12:15] VITALS: BP 110/52
--- NOTE | 2019-06-03 12:21 | NUR ---
RT AT BEDSIDE--- WILL CHANGE TRACK FROM UNCUFFED TO CUFFED PT'S B/P 106/[address] 100%--PICC LINE LUE PATENT
--- NOTE | 2019-06-03 12:28 | NUR ---
PT BIBA FROM [facility] WITH C/O HYPOTENSION, BP WAS 80/40 AT THE FACILITY WHEN EMS CREW REACHED THE FACILITY . PT AOX4, HAS TRACH COLLAR AND IS CONNECTED TO VENT MACHINE. PT BREATHING NORMAL. O2 SAT 100% OF VENT SETTING. RT AT THE BEDSIDE. PER EMS, PT WAS MORE COMFORTABLE WHEN SHE WAS CONNECTED TO BVM BAG. PT HAS HX OF CHF, DM. BS 177 WHAEN CHECKED BY EMS ON THE WAY. PT HAS COLOSTOMY BAG ON LFT LOWER QAUDRANT. PICC LINE ON HER LFT UPPER ARM. MULTIPLE WOUND ON HER BACK REGION, HAS G-TUBE AND FENATYL PATCH PLACED ON HER LFT UPPER CHEST, CAME WITH WHITMORE CATHETER FROM THE FACILITY. PT VS STABLE AT THIS TIME BP 114/60, HR 83, RR 23, O2 SAT 100% ON VENT SETTING. SIDE RAILS UPX2, PALCED BED ON LOWER POSITION. WILL CONTINUE TO MONITOR PT.
--- NOTE | 2019-06-03 12:45 | NUR ---
RECIVED PT IN ER FROM EMT [facility] BAG AT 100 % PT AWAKE IN RESP DISTRES PLACED PT ON VENT WITH SETTINGS CHARTED BREATH SOUNDS PRESENT BILAT PT WITH TRACH SHILEY 6 CUFFLESS SXN PT WITH LARGE AMOUNT OSECS SMALL MUCUS PLIU PT RESP IMPROVED AND SEEMED TO CECILIO VENT BETTER VENT PLUGGED INTO RED OUTLET [facility] BAG AT BEDSIDE
[2019-06-03] MEDS ORDERED: NACL 0.9% 1,000 ML IV ONE ×2 (12:50→17:55)
--- NOTE | 2019-06-03 13:43 | NUR ---
ATTEMPETED TO INSERT WHITMORE CATH X2 WITH JAY HARRIS, UNABLE TO INSERT THE WHITMORE CATH AT THIS TIME. WILL TRYI AGAIN.
[2019-06-03 14:08] LABS: HEMATOCRIT 21.9 % (36-48); MEAN CORPUSCULAR HEMOGLOBIN 24 pg (27-31); MEAN CORPUSCULAR HGB CONC 27 g/dL (33-37); MEAN CORPUSCULAR VOLUME 90.8 fL (80-94); PLATELET COUNT (AUTO) 352 K/uL (140-450); RED BLOOD CELL COUNT(AUTO) 2.41 MIL/uL (4.20-5.40); RED CELL DISTRIBUTION WIDTH 18.6 % (11.6-13.7)
--- NOTE | 2019-06-03 14:08 | NUR ---
INSERTED WHITMORE CATHETER IN PT BY JAY SHAFFER, NO URINE OUTPUT YET. WILL WAIT FOR THE URINE OUTPUT FROM PT.
[2019-06-03 14:21] LABS: WHITE BLOOD COUNT (AUTO) 37.7 K/uL (4.8-10.8)
[2019-06-03 14:22] LABS: HEMOGLOBIN 5.8 g/dL (12.0-16.0)
[2019-06-03] MEDS ORDERED: CEFEPIME 1,000 MG in DEXTROSE 5% 50 ML IV ONE (14:25)
[2019-06-03] MEDS ORDERED: VANCOMYCIN PER PHARMACY MC PRN (14:25)
[2019-06-03 14:39] LABS: ALBUMIN 2.2 g/dL (3.4-5.0); ANION GAP 23.9 (8-16); CARBON DIOXIDE 19.5 mmol/L (21-32); TOTAL BILIRUBIN 0.7 mg/dL (0.0-1.0)
[2019-06-03 14:45] LABS: POTASSIUM 7.4 mmol/L (3.5-5.1)
[2019-06-03 14:55] LABS: LYMPHOCYTES % (MANUAL) 4 % (20-46); MONOCYTES % (MANUAL) 2 % (5-12)
[2019-06-03] MEDS ORDERED: DEXTROSE 50% 50 ML SYR IVP ONE ×3 (15:00→20:26)
[2019-06-03] MEDS ORDERED: INSULIN REGULAR, HUMAN 100 UNIT/ML VIAL IVP ONE (15:00)
[2019-06-03] MEDS ORDERED: CALCIUM CHLORIDE 10% 100 MG/ML SYR IVP ONE (15:00)
[2019-06-03] MEDS ORDERED: CEFEPIME 1,000 MG VIAL ONE (15:03)
[2019-06-03] MEDS ORDERED: VANCOMYCIN 1,000 MG in DEXTROSE 5% 250 ML IV ONE (15:40)
--- NOTE | 2019-06-03 15:45 | NUR ---
SATRTED NEW IVF NS BOLUS ON PT. PT BEING SUCTIONED FROM G-TUBE. BLACK EMESISI FROM HER MOTH. TOOK AROUND 1.5 CANISTER OF THE EMESIS FROM G-TUBE. PT KEPT IN INTERMITTENT SUCTION. ADMINISTERED MEDS ORDERED TO PT. WILL CONTINUE TO MONITOR PT.
[2019-06-03] MEDS ORDERED: NACL 0.9% 1,000 ML IV SCH (15:48)
[2019-06-03] MEDS ORDERED: ONDANSETRON 4 MG/2 ML VIAL IM/IVP PRN (15:50)
[2019-06-03] MEDS ORDERED: VANCOMYCIN 1,000 MG VIAL ONE (16:04)
--- NOTE | 2019-06-03 16:30 | NUR ---
CONSENT FOR EMERGENT BLOOD TRANSFUSION SIGNED BY RN AND ER MD. CONSENT FOR EMERGENT CT ABD/PELV ANGIO SIGNED BY 2 RNS AND ER MD, WHO ALSO CONFIRMED WITH THE RADIOLOGIST. CONDENSER OPERATOR MADE AWARE.
--- NOTE | 2019-06-03 17:09 | NUR ---
CHARGE NURSE TALKING TO LINING CEMENTER FOR THE CT PROCEDURE OF THE PT. MONITOR AT THE BEDSIDE. WILL CONTINUE TO MONITOR NPT.
--- NOTE | 2019-06-03 17:14 | NUR ---
MIXED LIVESTOCK FARM WORKER AT THE BEDSIDE DRAWING BLOOD IN PT FOR THE SECOND LACTIC ACID DRAW.
--- NOTE | 2019-06-03 17:20 | NUR ---
CONTINUED TO MONITOR PT ON VENT PT TRANSPORTED TO CT NO ILL EFFECTS NOTED PT PLACED BACK ON VENT IN ER ON SETTINGS CHARTED BREATH SOUNDS PRESENT BILAT COARSE TRACH SITE SECURE VENT PLUGGED INTO RED OUTLET SXN PT WITH MOND AMT THICK YELLOW SECS AMBU BAG AT BESIDE
[2019-06-03 17:30] VITALS: BP 116/63
[2019-06-03] MEDS ORDERED: metroNIDAZOLE 500 MG/NS PREMIX 100 ML IV ONE (17:55)
[2019-06-03] MEDS ORDERED: PANTOPRAZOLE 80 MG in NACL 0.9% 100 ML IV SCH (17:55)
[2019-06-03] MEDS ORDERED: PANTOPRAZOLE 40 MG INJ VIAL IVP ONE ×2 (17:55→18:50)
--- NOTE | 2019-06-03 17:56 | NUR ---
175-----CALLED [facility] FOR TRANSFER. SPOKE WITH REED.
--- NOTE | 2019-06-03 17:56 | NUR ---
1755---- CALLED [facility] FOR TRANSFER OUT BECAUSE OF PT RENAL REPLACEMENT THERAPY AND DIALYSIS
[2019-06-03] MEDS ORDERED: PANTOPRAZOLE 40 MG INJ VIAL ONE (18:32)
--- NOTE | 2019-06-03 18:46 | NUR ---
340---FAXED INFORMATION TO [facility]. WAITING TO HEAR BACK
[2019-06-03] MEDS ORDERED: LACTATED RINGERS 1,000 ML IV ONE (18:50)
--- NOTE | 2019-06-03 19:45 | NUR ---
SATRTED BLOOD TRANSFUSION ON THE PATIENT. PRE TARNSFUSION VS NOTED TEMP 98.2, BP 107/54. HR 77, RR 12. TRANSFUSION VERIFIED BY ANOTHER RN CARINE AT THE BEDSIDE. PT VS SATBLE AT THIOS TIME. PT ON THE VENT SETTING. WILL CONTINUE TO MONITOR PT.
[2019-06-03 19:50] VITALS: BP 126/53
--- NOTE | 2019-06-03 19:50 | NUR ---
BLOOD TRANSFUSING WELL ON PT. VS RECORDED TEMP 98.5, HR 77, RR 12, BP 101/74. WILL CONTINUE TO MONITOR PT.
[2019-06-03 19:55] LABS: ANION GAP 25.4 (8-16); CARBON DIOXIDE 15.8 mmol/L (21-32); CREATININE 1.8 mg/dL (0.6-1.3)
[2019-06-03 19:57] LABS: PROTHROMBIN TIME 20.7 secs (10.8-13.4)
[2019-06-03 20:05] LABS: POTASSIUM 7.2 mmol/L (3.5-5.1)
--- NOTE | 2019-06-03 20:05 | NUR ---
INCREASED THE BLOOD TRANSFUSION TO 100 ML/HR. VS RECORDED TEMP TEMPORAL 98.1, HR 78, RR 12 , BP 117/65. BS 35. GAVE D50 IV PUSH TO PT. OBTAINING THE RECTAL TEMP.
--- NOTE | 2019-06-03 20:15 | NUR ---
DR REMY AT BEDSIDE. BLOOD GLUCOSE 38, DR REMY MADE AWARE. ADMINISTERED D50 IVP STAT AT THIS TIME PER VERBAL ORDER.
--- NOTE | 2019-06-03 20:20 | NUR ---
RECTAL TEMP 97.2, VS RECORDED BP 111/65, HR 80, RR 12. PT IS ON THE VENT SETTING. WILL CONTINUE TO MONITOR PT. BLOOD TRANSFUSED INCREASED THE RATE AT 150 ML/HR. NO ALLERGIC REACTION NOTED. TOLERATTING THE TRANSFUISON WELL. WILL CONTINUE TO MONITOR PT.
[2019-06-03] MEDS ORDERED: PATIROMER CALCIUM SORBITEX 8.4 GM PKT GT ONE (20:25)
[2019-06-03] MEDS ORDERED: ALBUTEROL 0.083% 2.5 MG/3 ML NEBU INH ONE (20:30)
--- NOTE | 2019-06-03 21:08 | NUR ---
ADMINISTERED MEDS TO PT ORDERED. PT MORE AWAKE AT THIS TIME. NO RESPIRATORY DISTRESS NOTED. BLOOD TRANSFUSING WELL, TOLERATED WELL BY THE PT. VS STABLE BP 119/55, O2 SAT 100% ON VENT SETTING. WILL CONTINUE TO MONITOR PT.
--- NOTE | 2019-06-03 21:20 | NUR ---
VS TEMP 98.7, TEMPORAL, BP 126/53, HR 84, RR 12. PT MORE AWAKEA ADN ALERT. PT ON VENT SETTING. PT BLOOD TRANSFUSION RATES INCRAESED TO 400ML/HR. PT TOLERATTING WELL. REPORT GIVEN TO JAY MOORE AT THE BEDSIDE. LR IVF INFUSING AT 200 ML/HR, PROTONIX IVF TO BE CONTINUED TO INFUSE. JAY MOORE MADE AWARE. WILL CONTINUE TO MONITOR PT.
[2019-06-03 21:29] VITALS: BP 126/53
--- NOTE | 2019-06-03 21:34 | NUR ---
PT TOLERATTING WELL THE BLOOD TRANSFUSION. SEE THE BLOOD TRANSFUSION NOTE FOR FURTHER INFORMATION.
--- NOTE | 2019-06-03 21:45 | NUR ---
REPORT RECEIVED FROM JAY LEE. TRANSFER OF CARE AT THIS TIME.
--- NOTE | 2019-06-03 21:46 | NUR ---
PT TOLERATING BLOOD WELL. VSS. SKIN PINK, WARM, DRY.
--- NOTE | 2019-06-03 21:50 | NUR ---
BLOOD INFUSION COMPLETE. VSS. RR ELEVATED DUE TO PT VOCALIZING; SUCTIONING PROVIDED. SKIN PINK, WARM, DRY. [facility] AT BEDSIDE; REPORT GIVEN. WILL CONTINUE TO MONITOR FOR REACTION.
--- NOTE | 2019-06-03 22:00 | NUR ---
[facility] TRANSPORT AT BEDSIDE. REPORT GIVEN TO CCT RN.
[2019-06-03 22:02] VITALS: BP 126/53
--- NOTE | 2019-06-03 22:02 | NUR ---
Patient to be transferred to [facility]. Is being transferred due to higher level of care. Receiving facility has accepting physician and available space. ER physician has signed transfer form. Patient or responsible green party has agreed to transfer and signed form. Patient belongings inventoried and will be sent with patient. Copy of nursing notes, lab reports, EKG, Physicians Orders and X-rays to be sent with patient. Report called to [phone] at receiving facility. [facility] ambulance service is at bedside. Pt transfered to [facility]. Pt awake, stable. [facility] left facility at 2202.
--- NOTE | 2019-06-03 22:12 | NUR ---
REPORT GIVEN TO [facility] RN; [phone].
--- NOTE | 2019-06-03 22:18 | NUR ---
PT HAS BEEN TRANSFERRED TO [facility] AT 2200.
--- NOTE | 2019-06-06 17:14 | NUR ---
CALLED [facility] AND THE PATIENT IS NOT CURRENTLY AT [facility]. CALLED AND SPOKE TO RN AT [facility] AND PATIENT HAS NOT RETURNED. UNABLE TO LOCATE WHERE THE PATIENT IS TO SEND POSITIVE CULTURES.
--- NOTE | 2019-06-08 15:32 | NUR ---
CALLED BED MANAGEMENT KRYSTINA AT [phone], LEFT V-MAIL. CALLED [facility] INFECTION CONTROL, LEFT V-MAIL TO HAVE HER FOLLOW UP WITH PT LAB-BLOOD C&S ON 06/03/19. BLOOD C&S RESULTS LEFT IN INFECTION CONTROL BOX.
--- NOTE | 2019-06-10 14:18 | NUR ---
Late entry. Confirmed with RN that Ringers Lactate continued to infuse until departure at 2202 as did Pantoprazole at 10ml/hr.
== END 2019-06-03 22:02 | disposition short-term general hospital (02) ==
LOC: MED 11:53 → MIC 15:54 → UNDOADMIN 15:54 → MED 22:02
DX: R65.21 Severe sepsis with septic shock (principal); K72.00 Acute and subacute hepatic failure without coma; K92.2 Gastrointestinal hemorrhage, unspecified; D50.0 Iron deficiency anemia secondary to blood loss (chronic); E87.5 Hyperkalemia; N15.1 Renal and perinephric abscess; I95.9 Hypotension, unspecified; E11.9 Type 2 diabetes mellitus without complications; I50.9 Heart failure, unspecified; R06.82 Tachypnea, not elsewhere classified; Z88.5 Allergy status to narcotic agent; Z88.2 Allergy status to sulfonamides; Z98.890 Other specified postprocedural states; Z79.899 Other long term (current) drug therapy; Z79.4 Long term (current) use of insulin
CPT/HCPCS: 36415; 51702; 71045; 74177; 80048; 80053; 82948; 83605; 85025; 85610; 85730; 86886; 86900; 86901; 86920; 87040; 87186; 93005; 94640; 96361; 96365; 96366; 96368; 96375; 96376; 99291; 99292; C9113; J0692; J1815; J3370; J3490; J7030; J7613; Q0092; Q9967; 99284